=== PATIENT | female | born 1965 | race Caucasian/White ===

== ENCOUNTER → 2017-04-22 | Outpatient (CLI) | payer MEDICARE, BC ==
[~2017-04-22] MED LIST: ACCUNEB SO1.25 MG/1; ACETAMINOPHEN325 M1 PO; ADVAIR 250-501 EACH IH; ADVAIR DISKU INH; ADVAIRDISKUS; ALDACTONE50 MG PO; AMBIEN PO; AMITIZA 24 MCG24 MC1 PO; AMITIZA8 MCG PO; AMITIZA8 MCG SUBQ; AMPHETAMINE SAL20 M1 PO; ASA81BEC PO; ASPIRIN325 PO; ATIVAN; ATIVAN0.5 MG PO; ATIVAN1 MG PO; ATIVAN2 MG IV; B12INJ IM; BACTROBAN NASAL1 GM NS; BENADRYL19 MG IV; BENAFIBER; BENZONATATE100 MG PO; BISACODYL5 MG PO; Benadryl IV; CALCIUM OYSTER500 MG PO; CARAFATE 1 GM TA1 G1 PO; CARISOPRODOL 3350 MG PO; CEFPODOXIME PR200 M1 PO; CELEBREX 200 M200 M1 PO; CELEBREX PO; CELLCEPT500 MG PO; CITRATE OF MAG296 ML PO; CITRATE OF MAG300 ML PO; CLEOCIN HCL150 MG PO; CLINDAMYCIN PO; CLONAZEPAM; CLONAZEPAM 1 MG1 M1 PO; COLACE100 MG PO; CRESTOR10 MG PO; CRESTOR5 MG PO; CYMBALTA PO; CYMBALTA30 MG PO; CYMBALTA60 MG PO; DIFLUCAN150 MG PO; DILAUDID; DILAUDID 2 MG TA2 MG PO; DILAUDID 4 MG TA4 M1 PO; DILAUDID2 M1 IV; DILAUDID4 MG PO; DIPHENHIST25 M2 PO; DIPHENHIST50 MG PO; DIPHENHYDR50 MG/1 ML IV; DITROPAN XL5 MG PO; DOLOPHINE HCL10 MG PO; DOLOPHINE HCL5 MG PO; DOXYCYCLINE 10100 MG PO; DUONEB 2.5-0.5 M3 ML IH; Dilaudid IV; EXCEDRIN CAPLE1 EACH PO; EXCEDRIN MIGRA1 EAC1 PO; FOLIC ACID PO; FOLIC ACID1 MG PO; FUROSEMIDE40 MG/4 ML PO; HALDOL; HYDROCHLOROTH12.5 M1 PO; HYDROXYZINE; IBUPROFEN 200200 M1 PO; IBUPROFEN 400400 M1 GT; IBUPROFEN 800800 M1 PO; JANTOVEN10 MG PO; K-DUR 20 MEQ T20 MEQ PO; KLONOPIN1 MG PO; KLOR-CON 1010 MEQ PO; KLOR-CON20 MEQ PO; LASIX; LASIX 40 MG TAB40 MG PO; LEVAQUIN 500 M500 M2 PO; LINZESS290 MCG PO; MAALOX525 MG/15 PO; MACROBID 100 M100 M2 PO; MAG-AL PLUS XS30 ML PO; MAGNES PO; MAGOX 400400 MG PO; MEDROL; METFORMIN 500500 MG PO; METHADONE HCL 110 M1 PO; METHADONE HCL5 MG PO; METHADOSE10 M1 PO; METHADOSE10 MG PO; METHYLPREDNISOLO1 GM PO; MIRALAX255 GM PO; MOBIC15 MG PO; MOM PO; MUCINEX600 MG PO; NEURONTIN 300300 M1 PO; NEXIUM40 MG PO; OMEGA XL PO; PEPCID AC20 M1 PO; PERCOCET 5-3251 EACH PO; PHENAZOPYRIDIN200 M2 PO; PHENERGAN 25 MG25 M1 PO; PHENERGAN IV; POTASSIUM PO; PREDNISONE 10 M10 MG PO; PREDNISONE 20 M20 M1 PO; PYRIDIUM200 MG PO; ROSE HIP PO; SIMBICORT; SOLU-MEDRO40 MG/1 M1 IV; SUDAFED 12 HOU120 MG PO; SYMBICORT80 MCG/4.5 INH; SYNTHROID 0.10.1 M1 PO; SYNTHROID100 MCG PO; SYNTHROID25 MCG PO; TOPAMAX 25 MG T25 M1 PO; TOPAMAX PO; TOPAMAX100 MG PO; TOPAMAX200 MG PO; TRANSDERM-SCOP1 EACH TD; TUMS PO; VALCYTE450 MG PO; VICODIN; VITAMIN B COMP1 EAC7 PO; VITAMIN C + RO500 MG PO; VITAMIN D 5050000 I1 PO; VITAMIN D400 UNI1 PO; XARELTO10 M1 PO; ZANAFLEX4 M1 PO; ZOFRAN; ZOFRAN ODT4 MG PO; ZOFRAN8 MG SL; ZPAK PO; ZYRTEC 10 MG TA10 MG PO; [UNRECOGNIZED DRUG - OTHER]; ferrous sulfate PO
[2017-04-22 09:36] VITALS: BP 143/73
--- NOTE | 2017-04-22 14:12 | NUR ---
ARRIVED AMBULATORY WITH DAUGHTER. MADE SELF COMFORTABLE IN RECLINER. PORT A CATH ACCESSED WITH OUT DIFFICULTY. GOOD BRISK BLOOD RETURN NOTED AND FLUSHED WITH EASE. IVP MEDS COMPLETED ORDERED. MESSAGE LEFT WITH DR. MCMAHON'S OFFICE REQUESTIONG NEW STANDING ORDER.
== END ==
LOC: M.INFUS 03-11 08:30
DX: L50.9 Urticaria, unspecified (principal); G43.909 Migraine, unspecified, not intractable, without status migrainosus

== ENCOUNTER → 2017-04-22 | Outpatient (CLI) | payer MEDICARE, BC ==
--- NOTE | 2017-04-24 08:15 | PAINCON ---
[facility] [address] [place] [address] PAIN MANAGEMENT CONSULTATION Name: SAEZRAMONMike SLATER [facility] [id number] Admission: 04/22/17 Attend Phys: Charmaine Wynne Discharge: Date of : 67 Report #: [id number] THIS REPORT FOR: //name// CC: Muriel Moncada The patient is a 51-year-old female with chronic headaches, history of Arnold-Chiari malformation, status post suboccipital craniotomy. Last seen in pain clinic on 02/11/2017, continued on baseline medications including methadone 5 mg 1 to 2 at bedtime, hydromorphone 2 mg up to b.i.d. We have been struggling with concern for headaches, cognitive impairment, sedation and loss of proprioception and balance. I strongly encouraged the patient to follow up with her neurosurgeon. She had her prior surgery in [facility] [place] with Dr. Tristan Caldwell. She followed up 1 time with Neurosurgery at [facility], but was dissatisfied with physician there. I assured her that surgeon she saw was excellent neurosurgeon and has excellent reputation for intracranial surgery. Nonetheless, the patient states that she wishes to follow up with her surgeon in [place]. She does have a consultation pending with a neurologist. 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 She gets an IV infusion of Toradol, Solu-Medrol and Benadryl once a month. This does seem to help with some overall swelling and pain. She notes that she is struggling with some depression over the holidays. She is a little tearful today. She does note, however, that she has had better balance and more energy this past week. She actually appears more alert, oriented and "bright eyed." PHYSICAL EXAMINATION: Shows 5 feet 3 inches, 207 pounds female, BMI remains elevated at 36.8 kilograms per meter squared. Blood pressure 132/79, pulse 59, respirations 16. Cervical range of motion is limited, posterior neck scar compatible with surgical history. Rises from chair using armrest. Still has a modestly ataxic gait, though she does appear to be a little more stable on her feet today. Alert and oriented to person, place and time, judged to be a reasonable historian. We reviewed the fact that opiate medications are being used to provide analgesia adequate to support activities of daily living, not attempting to achieve a specific pain score on the 0-10 Visual Analog Scale. The current opiate medications are providing sufficient analgesia to allow the patient to participate in activities of daily living. The patient is not exhibiting any aberrant behavior suggestive of drug diversion. The patient is not having any adverse reactions to medications. The patient is not suffering from daytime somnolence or mental acuity changes. The [place] [address] PAIN MANAGEMENT CONSULTATION Name: RAMON SAEZ Room: [facility] YAIMA Mohr#: [id number] Admission: 04/22/17 Attend Phys: Charmaine Wynne Discharge: Date of : 67 Report #: [id number] constipation with appropriate rwin-zrs-fyuoixk agents and dietary considerations. The patient was counseled on concern for caution with operating a motor vehicle while using opiate medications. A physical exam was performed and the patient's functional status was evaluated. All patients with back pain were advised against the bed rest greater than 4 days and were advised to return to normal activities. Pain score assessment was noted and the treatment plan was reviewed with the patient. All current medications, both prescribed and OTC were reviewed and reconciled on the electronic medical record. Tobacco screening was accomplished and smoking cessation was advised when indicated. BMI was noted and diet/exercise modification was recommended for all patients following outside normal parameters. I reviewed with the patient today their responsibilities to safeguard prescription medications, reviewed their responsibility to utilize medications only as prescribed by the physician. They are to seek and receive pain medications only from 1 physician group ( [facility]). They are to use 1 pharmacy and keep the clinic informed if they change pharmacies. Their responsibilities include making followup visits in a timely fashion and to avoid abrupt discontinuation of medication usage. Their responsibilities further include bringing their medications (bottles from the pharmacy with residual pills) to the visit for possible confirmation of pill counts and the patient understands it is their responsibility to submit to random drug screens to ensure both that the medications prescribed are present, and that no other controlled substances are present. All prescriptions provided today were generated electronically. RECOMMENDATION: 1. Continue follow up with consultants, she has a neuroophthalmologist appointment scheduled. She is following up with Rheumatology, Dr. Walker, tomorrow. She is getting her monthly infusion today. I strongly recommend following up with Neurosurgery in [place] regarding subjective increase in balance issues. 2. She did get Botox injections for headaches, feels that was somewhat helpful lasting several weeks. She continues to follow up on the usual q.12 week cycle for these. I am not sure who is giving her those injections, I believe that may be her current neurologist. 3. Ultimately, I have elected to continue baseline medication including methadone 5 mg 1 to 2 at bedtime, limit 60 tablets for 30 days; hydromorphone 2 mg 1-2 b.i.d., limit 60 tablets for 30 days. Follow up in 30 days for a pill count. Discharged in good stable condition after a prolonged visit. Actually spent [facility] [address] [place] [address] PAIN MANAGEMENT CONSULTATION Name: RAMON SAEZ Room: [facility]#: [id number] Admission: 04/22/17 Attend Phys: Charmaine Wynne Discharge: Date of : 67 Report #: [id number] about 25+ minutes visiting with the patient today, greater than 50% of time was spent counseling the patient. <ELECTRONICALLY SIGNED> By: Joel Moncada DO 04/24/17 0815 0744 [id number] Moncada DO /nt
== END ==
LOC: M.PC 04-01 03:36
DX: R51 Headache (principal); Z98.890 Other specified postprocedural states

== ENCOUNTER → 2017-05-06 | Outpatient (CLI) | payer MEDICARE, BC ==
[2017-05-06 09:30] VITALS: BP 119/71
--- NOTE | 2017-05-06 11:20 | NUR ---
ARRIVED AMBULATORY WITH DAUGHTER WHO IS DRIVING. MONTHLY MIGRAINE COCKTAIL. PORT A CATH ACCESSED WITH OUT DIFFICULTY. GOOD BRISK BLOOD RETURN NOTED AND FLUSEHED WITH EASE. IVP MEDS COMPLETED AND TOLERATED WELL. PORT FLUSHED PER PROTOCOL AND DEACCESSED. MONITORED FOR 30 MIN THEN DISCHARGED TO HOME WITH DAUGHTER.
== END ==
LOC: M.INFUS 08:44
DX: G43.909 Migraine, unspecified, not intractable, without status migrainosus (principal); L50.9 Urticaria, unspecified; Z79.899 Other long term (current) drug therapy

== ENCOUNTER → 2017-05-08 | Outpatient (CLI) | payer MEDICARE, BC ==
[2017-05-08 11:14] VITALS: BP 131/78
[2017-05-08 11:56] VITALS: BP 134/86
[2017-05-08 11:58] LABS: HEMATOCRIT 30.4 % (37.0-47.0); HEMOGLOBIN 9.6 gm/dL (12.0-15.0); MCHC 31.5 g/dL (28.0-37.0); MCV 82.5 fL (80.0-100.0); MPV 8.5 fl. (7.2-11.1); NUCLEATED RBCS 0 /100WBC; PLATELET COUNT* 278 thou/uL (150-400); RBC 3.68 mil/uL (4.20-5.00); RDW-CV 14.5 % (10.5-14.5)
--- NOTE | 2017-05-08 12:03 | NUR ---
ARRIVED AMBULATORY WITH DAUGHTER. NEW ORDER FOR LAB DRAW NOTED. PT REQUESTING PRN MIGRAINE COCKTAIL. DAUGHTER STATES WILL DRIVE PT HOME AND STAY AFTERNOON WITH HER. PORT A CATH ACCESSED WITHOUT DIFFICULTY. GOOD BRISK BLOOD RETURN NOTED AND FLUSHED WITH EASE. LABS DRAWN PER ORDER. PRN MIGRAINE COCKTAIL DONE PER STANDING ORDER AND HOSPITAL POLICY. PORT FLUSHED AND DEACCESSED. MONITORED FOR 20 MIN AND DISCHARGED HOME WITH DAUGHTER.
[2017-05-08 12:13] LABS: ALKALINE PHOSPHATASE 89 U/L (46-116); ANION GAP 7 mmol/L (7-16); BUN 23 mg/dL (7-18); CALCIUM 8.2 mg/dL (8.5-10.1); CHLORIDE 108 mmol/L (98-107); CHOLESTEROL 112 mg/dL (<200); CO2 28 mmol/L (21-32); CREATININE 0.8 mg/dL (0.6-1.3); GLUCOSE 134 mg/dL (70-99); HDL CHOLESTEROL 63 mg/dL (>40); LDL CHOLESTEROL 38 mg/dL (<100); POTASSIUM 3.6 mmol/L (3.5-5.1); SERUM ASSESSMENT Clear; SGOT 38 U/L (15-37); SGPT 16 U/L (30-65); SODIUM 143 mmol/L (136-145); TC:HDL 1.8 Ratio (Not establshd); TOTAL BILIRUBIN 0.5 mg/dL (<0.1-1.0); TOTAL PROTEIN 6.3 g/dL (6.4-8.2); TRIGLYCERIDE 55 mg/dL (<150); VLDL 11 mg/dL (<40)
[2017-05-08 12:38] LABS: ABSOLUTE BASOPHILS 0.1 thou/uL (0.0-0.2); ABSOLUTE EOSINOPHILS 0.2 thou/uL (0.0-0.7); ABSOLUTE LYMPHOCYTES 4.6 thou/uL (0.8-5.3); ABSOLUTE MONOCYTES 0.3 thou/uL (0.0-1.2); ABSOLUTE NEUTROPHILS 2.7 thou/uL (1.6-8.1); ANISOCYTOSIS 1+; ATYPICAL LYMPHS 2 %; PLATELET ESTIMATE ADEQUATE; POIKILOCYTOSIS 1+
[2017-05-08 13:10] LABS: ESR (SEDRATE) 85 mm/hr (0-30)
[2017-05-08 21:07] LABS: GLYCOHEMOGLOBIN (HGB A1C) 5.4 % (4.8-5.6)
== END ==
LOC: M.INFUS 04:46
PROVIDERS: Internal Medicine Rheumatology
DX: G43.909 Migraine, unspecified, not intractable, without status migrainosus (principal); L50.9 Urticaria, unspecified; Z79.899 Other long term (current) drug therapy

== ENCOUNTER → 2017-05-19 | Outpatient (CLI) | payer MEDICARE, BC ==
[2017-05-19 10:49] VITALS: BP 142/69
--- NOTE | 2017-05-19 11:10 | NUR ---
CALL RECIEVED FROM PT THIS AM REQUESTION TO COME IN FOR PRN MIGRAINE COCKTAIL. PT ARRIVED AMBULATORY WITH DAUGHTER AND GRANDSON. MADE SELF CMOFORTABLE. PT REPORT MIGRAINE SYMPTOMS STARTING. PORT A CATH LEFT CHEST ACCESSED WITH OUT DIFFICULTY. GOOD BLOOD RETURN NOTED AND FLUSHED WITH EASE. IV PUSH MEDS PER STANDING ORDER COMPLETED AND TOLERATED WELL. DENEIS QUESTIONS AT DISCHARGE. DISCHARGED WTIH DAUGHTER.
== END ==
LOC: M.INFUS 10:07
DX: G43.909 Migraine, unspecified, not intractable, without status migrainosus (principal); L50.9 Urticaria, unspecified; Z79.899 Other long term (current) drug therapy

== ENCOUNTER → 2017-05-20 | Outpatient (CLI) | payer MEDICARE, BC ==
--- NOTE | 2017-05-25 07:21 | PAINCON ---
[address] [address] PAIN MANAGEMENT CONSULTATION Name: RAMON SAEZ [facility] [id number] Admission: 05/20/17 Attend Phys: Charmaine Wynne Discharge: Date of : 67 Report #: [id number] THIS REPORT FOR: //name// CC: Muriel Moncada DATE OF SERVICE: 05/20/2017 The patient is a 51-year-old female whose care I took over in March 2016. The patient had Arnold-Chiari malformation, apparently was asymptomatic until around 1992 when she started having headaches and some myelopathic type symptoms after partuition. Her history is a little sketchy as the patient is somewhat poor historian. She has trouble with dates and has had some cognitive impairment issues. We pieced together her history. Apparently, she had an initial suboccipital decompression in 2002 with a revision a few weeks later. Had an anterior cervical disk fusion in 2003 and a posterior decompression in 2005 (?). Nonetheless, she came to me taking a little higher dose opiate and suffering from memory defects, word searching and some confusion. She is taking methadone 10 mg t.i.d. with hydromorphone 4 mg 3 times a day. Over the intervening 13 months, we have weaned down to methadone 5 mg 1 tablet b.i.d. with hydromorphone 4 mg b.i.d. p.r.n. and lorazepam 0.5 p.r.n. at bedtime insomnia, limit #30 tablets for 60 days to be used on a nondaily basis. She is getting Botox injections for headaches. Her neurologist, Dr. Temple in [facility] has been providing this therapy. She actually has her fourth series of Botox injections next week. It has been about 47 weeks now since she initiated this therapy and does note some efficacy. The patient's neurosurgeon, Dr. Caldwell in [place] is slated to see the patient in followup sometime later this spring or early summer. Currently, the patient states her pain is "in my entire head and throat." The patient tells me that she was swollen yesterday, stating she had swelling in her chest. When I queried the patient about this, she stated she had a "tight sensation" in her chest. She states that chest discomfort is not present today. She states pain is in the left lower extremity. She tells me she has significant swelling yesterday with a large bruise on the left lower leg yesterday, though there is no evidence of this today (?). Currently, the patient rates her pain at a 5 on a VAS. Again, describing more generalized type pain and ongoing headaches. Pain impact score is 25/70. We reviewed the fact that opiate medications are being used to provide analgesia adequate to support activities of daily living, [place] [address] PAIN MANAGEMENT CONSULTATION Name: RAMON SAEZ [facility] [id number] Admission: 05/20/17 Attend Phys: Charmaine Wynne Discharge: Date of : 67 Report #: [id number] specific pain score on the 0-10 Visual Analog Scale. The current opiate medications are providing sufficient analgesia to allow the patient to participate in activities of daily living. The patient is not exhibiting any aberrant behavior suggestive of drug diversion. The patient is not having any adverse reactions to medications. The patient is not suffering from daytime somnolence or mental acuity changes. The patient is managing opiate-induced constipation with appropriate lvmr-svm-oqchgqc agents and dietary considerations. The patient was counseled on concern for caution with operating a motor vehicle while using opiate medications. A physical exam was performed and the patient's functional status was evaluated. All patients with back pain were advised against the bed rest greater than 4 days and were advised to return to normal activities. Pain score assessment was noted and the treatment plan was reviewed with the patient. All current medications, both prescribed and OTC were reviewed and reconciled on the electronic medical record. Tobacco screening was accomplished and smoking cessation was advised when indicated. BMI was noted and diet/exercise modification was recommended for all patients following outside normal parameters. I reviewed with the patient today their responsibilities to safeguard prescription medications, reviewed their responsibility to utilize medications only as prescribed by the physician. They are to seek and receive pain medications only from 1 physician group ( [facility]). They are to use 1 pharmacy and keep the clinic informed if they change pharmacies. Their responsibilities include making followup visits in a timely fashion and to avoid abrupt discontinuation of medication usage. Their responsibilities further include bringing their medications (bottles from the pharmacy with residual pills) to the visit for possible confirmation of pill counts and the patient understands it is their responsibility to submit to random drug screens to ensure both that the medications prescribed are present, and that no other controlled substances are present. All prescriptions provided today were generated electronically. Today, we did review the opiate consent to treat contract. Buccal random drug swab was accomplished today. The patient was seen for moderately prolonged visit, greater than 25 minutes was spent reviewing medical history, therapeutic options, discussing current therapies and reviewing opiate consent to treat contract. I have taken the liberty of renewing 2 months of current medication, methadone 5 mg b.i.d., #60 tablets and hydromorphone 4 mg b.i.d. breakthrough pain, [place] [address] PAIN MANAGEMENT CONSULTATION Name: RAMON SAEZ [facility] [id number] Admission: 05/20/17 Attend Phys: Charmaine Wynne Discharge: Date of : 67 Report #: [id number] #60 tablets for 30 days. Prescriptions to release today and 4 weeks were generated. Follow up in 2 months for reevaluation, earlier if needed. <ELECTRONICALLY SIGNED> By: Joel Moncada DO 05/25/17 0721 1458 [id number] Moncada DO /nt
== END ==
LOC: M.PC 01:37
DX: Q07.8 Other specified congenital malformations of nervous system (principal); G31.84 Mild cognitive impairment of uncertain or unknown etiology; Z98.890 Other specified postprocedural states

== ENCOUNTER → 2017-06-08 | Outpatient (CLI) | payer MEDICARE, BC ==
[2017-06-08 14:00] VITALS: BP 131/80
--- NOTE | 2017-06-08 14:03 | NUR ---
CALLED THIS AM REQUESTIONG PRN MIGRAINE COCKTAIL. APPOINTMENT MADE. ARRIVED AMBULATORY WITH . PORT A CATH ACCESSED WITHOUT DIFFICULTY. GOOD BRISK BLOOD RETURN NOTED AND FLUSHED WITH EASE. PRN MEDS GIVEN IVP PER ORDER. TOLERATED WELL. TO ASSIST TO CAR AND STAY WITH PT. DENIES NEEDS AT DISCHARGE.
== END ==
LOC: M.INFUS 12:22
DX: G43.909 Migraine, unspecified, not intractable, without status migrainosus (principal); K59.00 Constipation, unspecified

== ENCOUNTER → 2017-06-11 | Outpatient (CLI) | payer MEDICARE, BC ==
--- NOTE | 2017-06-11 10:30 | NUR ---
port a cath accessed with out difficulty. good brisk blood return noted and flused with ease. scheduled for EGD in surgery center today. here for port access prior to procedure.
--- NOTE | 2017-06-11 12:23 | NUR ---
EGD COMPLETED IN SURGERY CENTER. RETURNED TO INFUSION FOR PORT FLUSH AND DEACCESS AT 1205. PORT FLUSHED AND DEACCESSED. TOLERATED WELL. WAITING RIDE HOME BACK OVER AT SURGERY CENTER.
== END ==
LOC: M.INFUS 00:41
DX: G43.909 Migraine, unspecified, not intractable, without status migrainosus (principal); L50.9 Urticaria, unspecified

== ENCOUNTER → 2017-06-12 | Outpatient (CLI) | payer MEDICARE, BC ==
[2017-06-12 11:44] VITALS: BP 157/94
--- NOTE | 2017-06-12 13:35 | NUR ---
ARRIVED AMBULATOEY. MADE SELF COMFORTABLE IN RELCINER. PORT A CATH ACCESSED WITH OUT DIFFICULTY. GOOD BRISK BLOOD RETURN NOTED AND FLUSHED WITH EASE. IV PUSH MEDS FOR MIGRAINE COCTAIL COMPLETED AND TOLERATED WELL. CARRIE NEEDS AT DISCHARGE. SISTER IN LAW TO DRIVE HOME AND STAY WITH PT.
== END ==
LOC: M.INFUS 11:45
DX: G43.909 Migraine, unspecified, not intractable, without status migrainosus (principal); L50.9 Urticaria, unspecified

== ENCOUNTER → 2017-07-08 | Outpatient (CLI) | payer MEDICARE, BC ==
[2017-07-08 09:18] VITALS: BP 105/57
--- NOTE | 2017-07-08 10:30 | NUR ---
Pt arrived at 0830 for injection of medications for Migraine RANGEL. Pt seated self in recliner after ambulating to infusion area for treatment. Access attempted by 1st RN without sucesss. Port then accessed on 2nd attempt with 20g 1 1/2in bent needle @ 0910. Pt tolerated well. Brisk blood return noted and flushed easily. Pt stated she was able to taste & smell the saline flush solution. Medications given slow IV push starting at 0910 and completed by 0916. Was then flushed with 20ml NS and packed with Heprin flush before removing port-a-cath access. Sabrina then became sleepy and rested in recliner. At 0950 pt's sister in law who is her ride home called and stated that she would be back around 1100 to pick her up from infusion.
--- NOTE | 2017-07-08 10:38 | NUR ---
Pt is up ambulating to rr, uses cane to walk but appears stable & with good balance at this time.
--- NOTE | 2017-07-08 11:36 | NUR ---
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 Sister in law picked pt up for discharge home.
== END ==
LOC: M.INFUS 06:05
DX: G43.909 Migraine, unspecified, not intractable, without status migrainosus (principal)

== ENCOUNTER → 2017-07-15 | Outpatient (CLI) | payer MEDICARE, BC ==
--- NOTE | 2017-07-17 09:51 | PAINCON ---
[address] [address] PAIN MANAGEMENT CONSULTATION Name: SAEZRAMON EDGAR [facility] [id number] Admission: 07/15/17 Attend Phys: Charmaine Wynne Discharge: Date of : 67 Report #: [id number] THIS REPORT FOR: //name// CC: Muriel Moncada DATE OF SERVICE: 07/15/2017 The patient is a 51-year-old female being treated for chronic neuropathic pain. She is status post suboccipital craniotomy for Arnold-Chiari malformation, has chronic headaches. Last seen in the Pain Clinic on 05/20/2017. We have been weaning her opiate load as she is having significant somnolence when I took over her care, now a little greater than a year ago (04/02/2016). At that time, the patient was using methadone 10 mg 3 times a day with hydromorphone 4 mg 3-4 a day for breakthrough pain. We have gradually weaned that opiate load over time, currently taking methadone 5 mg b.i.d., hydromorphone 1 tablet up to b.i.d. She tells me today that actually she takes methadone b.i.d., but uses the breakthrough pain tablet perhaps every other day in the morning and then at night. She still has some ongoing drowsiness and feeling "tired all the time." She does, however, have a little anemia, which may be somewhat attributing. She has been started on iron supplementation and Carafate q.i.d. She has a followup appointment with her GI doctor. From a neurologic standpoint, she is having increasing symptoms. Ongoing ataxia. She has fallen backwards a couple of times. She has been admonished to continue to use her walker. She has decrease in visual acuity in the left eye. She does ostensibly have an appointment to see her prior neurosurgeon (who does reside in [place], [place]). PHYSICAL EXAMINATION: Otherwise shows a 51-year-old female, BMI is elevated at 36.1 kg/m2. Vital signs are stable, afebrile. Blood pressure 103/72, pulse 67, respirations 16. Room air oxygen saturation is modestly diminished at 94%. Subjective pain score is 7 on a VAS. Cranial nerves 2-12 are grossly intact. Again, her affect is little flat and she appears a little sedate. She has an ataxic gait, diffuse tenderness in the upper back splenius capitis, trapezius, though no discrete trigger points noted. ASSESSMENT: Chronic headaches, status post suboccipital craniotomy for Arnold-Chiari malformation, neuropathic pain requiring complex medication management. RECOMMENDATIONS: We will continue to wean methadone, decrease to 1/2 to 1 tablet in the morning, continue 1 at night. We will decrease hydromorphone 2 mg per tablet, 1 tablet in the morning and 1-2 in the [place] [address] PAIN MANAGEMENT CONSULTATION Name: SERAMON SLATER Room: [facility] Mohr#: [id number] Admission: 07/15/17 Attend Phys: Charmaine Wynne Discharge: Date of : 67 Report #: [id number] pain. I have taken the liberty of writing for 1 month of medication. Follow up at that time for reevaluation. Encouraged the patient to follow up with her prior surgeon regarding changing neurologic issues. <ELECTRONICALLY SIGNED> By: Joel Moncada DO 07/17/17 0951 [id number] 1933Joel Moncada DO /nt
== END ==
LOC: M.PC 02:28
DX: G89.29 Other chronic pain (principal); M79.2 Neuralgia and neuritis, unspecified; R51 Headache; Z79.899 Other long term (current) drug therapy

== ENCOUNTER → 2017-07-20 | Outpatient (CLI) | payer MEDICARE, BC ==
[2017-07-20 14:14] VITALS: BP 128/80
[2017-07-20 14:50] VITALS: BP 112/75
--- NOTE | 2017-07-20 16:03 | NUR ---
CALL RECIEVED FROM PT. STATED SHE WAS HAVING HEADACHE AND GENERALIZED SWELLING. PRN MEDICATION GIVEN PER STANDING ORDER. PORT A CATH WAS ACCESSED WITH EASE. DENEIS QUESTIONS OR NEEDS AT DISCHARGE.
== END ==
LOC: M.INFUS 13:27
DX: G43.909 Migraine, unspecified, not intractable, without status migrainosus (principal); L50.9 Urticaria, unspecified

== ENCOUNTER → 2017-08-05 | Outpatient (CLI) | payer MEDICARE, BC ==
[2017-08-05 09:36] VITALS: BP 126/66
--- NOTE | 2017-08-05 11:00 | NUR ---
ARRIVED AMBULATORY. MADE SLEF COMFORTABLE PORT A CATH ACCESSED WITH OUT DIFFICULTY. GOOD BRISK BLOOD RETURN NOTED AND FLUSHED WITH EASE. IV PUSH MEDS GIVEN PER STANDING ORDER. TOLERATED WELL. PORT FLUSHED AND THEN DEACCESSED. DENIES NEEDS OR QUESTIONS AT DISCHARGE.
== END ==
LOC: M.INFUS 02:40
DX: G43.909 Migraine, unspecified, not intractable, without status migrainosus (principal)

== ENCOUNTER → 2017-08-11 | Outpatient (CLI) | payer MEDICARE, BC ==
[2017-08-11 13:22] VITALS: BP 110/65
== END ==
LOC: M.INFUS 11:16
DX: G43.809 Other migraine, not intractable, without status migrainosus (principal)

== ENCOUNTER → 2017-09-01 | Outpatient (CLI) | payer MEDICARE, BC ==
[2017-09-01 08:40] VITALS: BP 97/54
[2017-09-01 09:57] LABS: ABSOLUTE BASOPHILS 0.1 thou/uL (0.0-0.2); ABSOLUTE EOSINOPHILS 0.1 thou/uL (0.0-0.7); ABSOLUTE MONOCYTES 0.7 thou/uL (0.0-1.2); ABSOLUTE NEUTROPHILS 2.4 thou/uL (1.6-8.1); EOSINOPHILS 1.5 %; HEMOGLOBIN 11.1 gm/dL (12.0-15.0); LYMPHOCYTES 48.2 %; MCHC 33.7 g/dL (28.0-37.0); MCV 89.1 fL (80.0-100.0); MONOCYTES 10.9 %; MPV 8.6 fl. (7.2-11.1); NUCLEATED RBCS 0 /100WBC; PLATELET COUNT* 245 thou/uL (150-400); POLYS 38.4 %; RDW-CV 18.1 % (10.5-14.5); WBC 6.3 thou/uL (4.0-11.0)
[2017-09-01 10:01] LABS: CALCIUM 8.2 mg/dL (8.5-10.1); CREATININE 0.7 mg/dL (0.6-1.3)
[2017-09-01 10:04] LABS: POTASSIUM 2.7 mmol/L (3.5-5.1)
== END ==
LOC: M.INFUS 01:38
PROVIDERS: Family Medicine
DX: G43.909 Migraine, unspecified, not intractable, without status migrainosus (principal); L50.9 Urticaria, unspecified; K59.00 Constipation, unspecified; Z79.899 Other long term (current) drug therapy

== ENCOUNTER → 2017-09-02 | Outpatient (CLI) | payer MEDICARE, BC ==
[2017-09-02 13:52] LABS: CALCIUM 8.6 mg/dL (8.5-10.1); POTASSIUM 3.3 mmol/L (3.5-5.1)
== END ==
LOC: M.LAB 13:23
PROVIDERS: Family Medicine
DX: E87.6 Hypokalemia (principal)

== ENCOUNTER 2017-09-07 11:50 | Emergency (ER) | payer MEDICARE, BC ==
[~2017-09-07] VITALS: Ht 157.5 cm; Wt 92.1 kg
[~2017-09-07 11:50] MED LIST changes: -AMITIZA 24 MCG24 MC1 PO; -AMITIZA8 MCG PO; -DOXYCYCLINE 10100 MG PO; -LEVAQUIN 500 M500 M2 PO
[2017-09-07 13:53] VITALS: BP 124/83
[2017-09-09] MEDS ORDERED: METHADONE HCL5 MG PO (10:05)
[2017-09-09] MEDS ORDERED: CELEBREX 200 M200 M1 PO (10:05)
[2017-09-09] MEDS ORDERED: CYMBALTA60 MG PO (10:05)
[2017-09-09] MEDS ORDERED: DILAUDID 2 MG TA2 MG PO (10:05)
[2017-09-09] MEDS ORDERED: ZANAFLEX4 M1 PO (10:05)
[2017-09-09] MEDS ORDERED: DOLOPHINE HCL5 MG PO (10:05)
[2017-09-10] MEDS ORDERED: LEVAQUIN 500 M500 M2 PO (10:31)
[2017-09-10] MEDS ORDERED: AMITIZA8 MCG PO (10:31)
[2017-11-12] MEDS ORDERED: METHADONE HCL5 MG PO (08:18)
[2017-11-12] MEDS ORDERED: ATIVAN0.5 MG PO (08:18)
[2017-11-12] MEDS ORDERED: DOLOPHINE HCL5 MG PO (08:18)
[2017-11-12] MEDS ORDERED: CYMBALTA60 MG PO (08:18)
[2017-11-12] MEDS ORDERED: ZANAFLEX4 M1 PO (08:18)
[2017-11-12] MEDS ORDERED: CELEBREX 200 M200 M1 PO (08:18)
[2017-11-12] MEDS ORDERED: DILAUDID 2 MG TA2 MG PO ×4 (10:32→10:34)
[2017-11-17] MEDS ORDERED: DOXYCYCLINE 10100 MG PO (09:23)
[2017-11-17] MEDS ORDERED: AMITIZA 24 MCG24 MC1 PO (09:23)
[2017-11-17] MEDS ORDERED: K-DUR 20 MEQ T20 MEQ PO (09:23)
[2018-01-07] MEDS ORDERED: METHADONE HCL5 MG PO (08:20)
[2018-01-07] MEDS ORDERED: DILAUDID 2 MG TA2 MG PO ×2 (08:20)
[2018-01-07] MEDS ORDERED: ZANAFLEX4 M1 PO (08:20)
[2018-01-07] MEDS ORDERED: CYMBALTA60 MG PO (08:20)
[2018-01-07] MEDS ORDERED: CELEBREX 200 M200 M1 PO (08:20)
[2018-01-07] MEDS ORDERED: ATIVAN0.5 MG PO (08:20)
[2018-01-07] MEDS ORDERED: DOLOPHINE HCL5 MG PO (10:13)
[2018-03-02] MEDS ORDERED: DILAUDID 2 MG TA2 MG PO ×2 (10:28)
[2018-03-02] MEDS ORDERED: METHADONE HCL5 MG PO (10:28)
[2018-03-02] MEDS ORDERED: ZANAFLEX4 M1 PO (10:28)
[2018-03-02] MEDS ORDERED: CELEBREX 200 M200 M1 PO (10:28)
[2018-03-02] MEDS ORDERED: ATIVAN0.5 MG PO (10:28)
[2018-03-02] MEDS ORDERED: DOLOPHINE HCL5 MG PO (10:28)
[2018-03-02] MEDS ORDERED: CYMBALTA60 MG PO (10:28)
== END 2017-09-07 13:55 | disposition home or self-care (01) ==
LOC: M.ERS 11:50
DX: S52.592A Other fractures of lower end of left radius, initial encounter for closed fracture (principal); S52.612A Displaced fracture of left ulna styloid process, initial encounter for closed fracture; I48.91 Unspecified atrial fibrillation; J45.909 Unspecified asthma, uncomplicated; Z91.041 Radiographic dye allergy status; Z91.018 Allergy to other foods; Z88.0 Allergy status to penicillin; Z88.2 Allergy status to sulfonamides; Z88.8 Allergy status to other drugs, medicaments and biological substances; W18.39XA Other fall on same level, initial encounter; Y93.89 Activity, other specified; Y92.89 Other specified places as the place of occurrence of the external cause; Y99.8 Other external cause status

== ENCOUNTER → 2017-09-07 | Outpatient (CLI) | payer MEDICARE, BC ==
[2017-09-07 15:19] LABS: CALCIUM 8.5 mg/dL (8.5-10.1); CREATININE 0.7 mg/dL (0.6-1.3); POTASSIUM 3.5 mmol/L (3.5-5.1)
--- NOTE | 2017-09-07 15:20 | NUR ---
PATIENT ARRIVAL FROM ER TO OP INFUSION. ASKING TO BE ADDED ON FOR PORTACATH ACCESS AND MEDICATION ADMINISTRATION. CONTACTED ADMITTING FOR PAPERWORK AND REGISTRATION. PATIENT MADE SELF COMFORTABLE IN RECLINER. PATIENT ASKING FOR GLORIA TO ACCESS HER PORT. LEFT CHEST PORT ACCESSED BY GLORIA NIELSEN RN. HISTORY AND ORDERS REVIEWED. VS FROM ER REVIEWED. MEDICATIONS ADMINISTERED PER DR. LIZARRAGA ORDERS. PORT FLUSHED WITH NS 20MLS AND HEPARIN 5MLS OF 100UNIT/ML SOLUTION. PORT THEN DEACCESSED AND BANDAID APPLIED. PATIENT CONVERSING AND DENIES CONCERNS. PATIENT DEPARTS FOR HOME WITH [employer]EM[employer]ER HELPER PRESENT TO PICK HER UP.
== END ==
LOC: M.INFUS 14:14 → M.RAD 14:14
PROVIDERS: Family Medicine
DX: G43.909 Migraine, unspecified, not intractable, without status migrainosus (principal); R07.9 Chest pain, unspecified; R06.02 Shortness of breath; E87.6 Hypokalemia

== ENCOUNTER → 2017-09-09 | Outpatient (CLI) | payer MEDICARE, BC ==
[~2017-09-09] MED LIST changes: +AMITIZA 24 MCG24 MC1 PO; +AMITIZA8 MCG PO; +DOXYCYCLINE 10100 MG PO; +LEVAQUIN 500 M500 M2 PO
--- NOTE | 2017-09-10 07:50 | PAINCON ---
[facility] [address] [place] [address] PAIN MANAGEMENT CONSULTATION Name: RAMON SAEZ Room: [facility]#: [id number] Admission: 09/09/17 Attend Phys: Charmaine Wynne Discharge: Date of : 67 Report #: [id number] THIS REPORT FOR: //name// CC: Mauro Moncada DATE OF SERVICE: 09/09/2017 The patient is a 52-year-old female being treated for chronic headaches, status post suboccipital craniotomy secondary to Arnold-Chiari malformation. Neuropathic pain requiring complex medication management. Last seen in the Pain Clinic 07/15/2017. Continued on methadone 5 mg typically one tablet b.i.d. with hydromorphone 2 mg 1 tablet 2-3 times a day, limit 75 tablets for 30 days. The patient returns to the Pain Clinic today. She has finally sent her medical records to her treating neurosurgeon who has relocated to [place], [place]. She plans on following up with him hopefully within the next 4-6 weeks. In the interval since we last saw her, the patient had another syncopal event. Unfortunately, this time she did fall suffering what sounds like a Colles fracture in the left forearm. Some increasing pain here. Physical exam shows a 52-year-old female. Cranial nerves 2-12 appear grossly intact. We have been treating her since 03/2016. We weaned her opiate load a little bit and she is a little more alert and oriented, little less cognitive impairment, though she still has some memory issues. She rises from chair using armrests, has a bit of an ataxic gait, though she has symmetric strength in the upper and lower extremities. Cervical range of motion is modestly limited. BMI is 38.2 kilograms per meter squared, blood pressure 95/59, pulse 83, respirations are 18. Subjective pain score is 9 on a VAS. She does have an immobilizer in her right wrist. She is following up with the orthopedic surgeon within the week. We reviewed the fact that opiate medications are being used to provide analgesia adequate to support activities of daily living, not attempting to achieve a specific pain score on the 0-10 Visual Analog Scale. The current opiate medications are providing sufficient analgesia to allow the patient to participate in activities of daily living. The patient is not exhibiting any aberrant behavior suggestive of drug diversion. The patient is not having any adverse reactions to medications. The patient is not suffering from daytime somnolence or mental acuity changes. The patient is managing opiate-induced constipation with appropriate vwwa-lpw-qqcwytz agents and dietary considerations. The patient was counseled on concern for caution with operating a motor vehicle [place] [address] PAIN MANAGEMENT CONSULTATION Name: RAMON SAEZ [facility] [id number] Admission: 09/09/17 Attend Phys: Charmaine Wynne Discharge: Date of : 67 Report #: [id number] A physical exam was performed and the patient's functional status was evaluated. All patients with back pain were advised against the bed rest greater than 4 days and were advised to return to normal activities. Pain score assessment was noted and the treatment plan was reviewed with the patient. All current medications, both prescribed and OTC were reviewed and reconciled on the electronic medical record. Tobacco screening was accomplished and smoking cessation was advised when indicated. BMI was noted and diet/exercise modification was recommended for all patients following outside normal parameters. I reviewed with the patient today their responsibilities to safeguard prescription medications, reviewed their responsibility to utilize medications only as prescribed by the physician. They are to seek and receive pain medications only from 1 physician group ( [facility]). They are to use 1 pharmacy and keep the clinic informed if they change pharmacies. Their responsibilities include making followup visits in a timely fashion and to avoid abrupt discontinuation of medication usage. Their responsibilities further include bringing their medications (bottles from the pharmacy with residual pills) to the visit for possible confirmation of pill counts and the patient understands it is their responsibility to submit to random drug screens to ensure both that the medications prescribed are present, and that no other controlled substances are present. All prescriptions provided today were generated electronically. RECOMMENDATIONS: Continue methadone 5 mg b.i.d. We will increase hydromorphone to 1 tablet 3 times a day, limit 90 tablets for the first 4 weeks, second prescription released in 4 weeks. We will drop back to 75 tablets, 1 tablet 2-3 times a day. Continue methadone as noted unchanged, Celebrex 200 mg 1 a day. She has been intolerant of other NSAID agents due to gastroesophageal reflux and history of a bleeding ulcer. Continue Cymbalta 60 mg b.i.d. I did inform the patient that I will be leaving the practice, leaving the practice area at the end of next month. Recommend that she follow up with Dr. Mauro Henrandez. He had been her prior treating pain physician. He left [facility], at that time patient's insurance covered at [place]. She believes she will be able to go to see him at [place]. Given that she has complicated medical history, I think her better medical care would be to follow up with Dr. Hernandez. <ELECTRONICALLY SIGNED> By: Joel Moncada DO 09/10/17 0750 [id number] Moncada DO /nt
== END ==
LOC: M.PC 03:57
DX: M79.2 Neuralgia and neuritis, unspecified (principal); G89.29 Other chronic pain; R51 Headache; Z79.899 Other long term (current) drug therapy

== ENCOUNTER → 2017-09-16 | Outpatient (CLI) | payer MEDICARE, BC | LOC: M.LAB 09:38 | DX: Z01.812 Encounter for preprocedural laboratory examination (principal) ==

== ENCOUNTER → 2017-09-18 | Outpatient (CLI) | payer MEDICARE, BC ==
[2017-09-18 10:16] VITALS: BP 94/57
--- NOTE | 2017-09-18 10:16 | NUR ---
PT ARRIVED TO INFUSION FOR ACCESSING HER PORT-A-CATH FOR HER PRN MEDICATIONS FOR DX: MIGRAINE HEADACHES. PT HAD ASSIST OF CANE AND MADE SELF COMFORTABLE IN RECLINER. ASSISTED IN LYING BACK IN RECLINER FOR PORT-A-CATH ACCESS. ATTEMPTED ACCESS OF PT'S LEFT CHEST PORT-A-CATH X 2 W/3/4 IN 20 G BENT NEEDLE WITH STERILE TECHNIQUE. UNABLE TO ACCESS W/3/4 IN 20 G BENT NEEDLE. ACCESSED ON THIRD ATTEMPT W/04 20/2 IN 20 G BENT NEEDLE W/STERILE TECHNIQUE. BLOOD RETURNED BRISKLY. PT GIVEN HER MEDICATION FOR DX: MIGRAINES, 100 MG DIPHENHYDRAMINE IVP, 30 MG TORADOL IVP, 4 MG ZOFRAN IVP, AND 125 MG SOLUMEDROL IVP. PT THEN GIVEN 20 ML NORMAL SALINE FLUSH FOLLOWED BY HEPARIN FLUSH 5 ML. PT DENIED NEEDS AT DISCHARGE. PT TAKEN OUT VIA W/CHAIR FOR DISCHARGE HOME-PT BEING DRIVEN HOME BY HER DAUGHTER.
== END ==
LOC: M.INFUS 10:04
DX: G43.909 Migraine, unspecified, not intractable, without status migrainosus (principal)

== ENCOUNTER → 2017-10-01 | Outpatient (CLI) | payer MEDICARE, BC ==
[2017-10-01 08:43] VITALS: BP 100/89
--- NOTE | 2017-10-01 09:10 | NUR ---
PT ARRIVED TO THE UNIT AT 0830, SETTLED INTO RECLINER AND V.S. OBTAINED. PT ALREADY ACCESSED PORT A CATH, WHICH FLUSHES EASILY, BUT DOES NOT RETURN BLOOD. HUGO RN EVALUATED IT. MEDS WERE GIVEN, PORT WAS HEPARIN FLUSHED, THEN DEACCESSED. DR. MCMAHON OFFICE WAS CALLED TO OBTAIN CATH AZIZA ORDER FOR NEXT TIME PT RETURNS NEXT WEEK, IN CASE NEEDED WHEN REACCESSED. PT.ESCORTED TO CAR PER W.C.
== END ==
LOC: M.INFUS 01:34
DX: G43.909 Migraine, unspecified, not intractable, without status migrainosus (principal)

== ENCOUNTER → 2017-10-07 | Outpatient (CLI) | payer MEDICARE, BC ==
[2017-10-07 08:55] VITALS: BP 122/74
[2017-10-07 10:15] VITALS: BP 118/72
--- NOTE | 2017-10-07 10:31 | NUR ---
ARRIVED AMBULATORY. MADE SELF COMFORTABLE IN RECLINER. PORT A CATH ACCESSED WITH OUT DIFFICULTY. SLUGGISH SCANT BLOOD RETURN NOTED. MIGRAINE COCKTAIL GIVEN PER STANDING ORDER. PER ORDER AND HOSPITAL PROTOCOL, CATH FLOW DONE TO RSTORE BLOOD RETURN TO PORT A CATH. LINE CHECKED AT 45MIN AND GOOD BRISK BLOOD RETURN WITH ASPERATION NOTED 5ML WASTED. LINE THEN FLUSHED PER PROTOCOL. DENIES NEEDS AT DISCHARGE.
== END ==
LOC: M.INFUS 09-30 08:00
DX: G43.909 Migraine, unspecified, not intractable, without status migrainosus (principal)

== ENCOUNTER → 2017-11-12 | Outpatient (CLI) | payer MEDICARE, BC ==
--- NOTE | 2017-11-18 14:16 | PAINCON ---
[address] [address] PAIN MANAGEMENT CONSULTATION Name: RAMON SAEZ Room: [facility] YAIMA Mohr#: [id number] Admission: 11/12/17 Attend Phys: Lupis Collins MD Discharge: Date of : 67 Report #: [id number] THIS REPORT FOR: //name// CC: Muriel Collins DATE OF SERVICE: 11/12/2017 FOLLOWUP COMPLAINT: Headache and pain behind the eyes. FOLLOWUP HISTORY: The patient is a 52-year-old female, who has been seen and followed in the pain clinic by Dr. Joel Moncada. The patient has a very complex medical history. She has been treated for chronic headaches. She is status post occipital craniotomy secondary to Arnold Chiari malformation. The patient continues to have neuropathic pain, which requires complex medicine regimen and management. She continues to find methadone and hydromorphone helpful. The patient has been treated by a neurosurgeon, he has relocated to [place], [place]. She recently had a syncopal episode. She suffered a Colles fracture of her left forearm, which is healing. She continues to have pain, which radiates down into her arms bilaterally and involves her fingers with some numbness and tingling. She rates her pain as a 7/10 at this juncture. She is unable to drive. PAST MEDICAL HISTORY: 1. Chronic headaches. 2. Anterior cervical fusion at C5-C6. 3. History of aortic insufficiency. 4. Hypertension. 5. Asthma. 6. Chronic anemia. 7. Morbid obesity. 8. Degenerative osteoarthritis. 9. Chronic fatigue syndrome with positive Eve-Pathak titer. 10. Hypothyroidism. 11. Unidentified autoimmune disorder. 12. Status post right T3/T4/T5 central disk protrusion. PAST SURGICAL HISTORY: 1. Suboccipital craniotomy for Arnold Chiari malformation. 2. Anterior cervical fusion at C5/C6. 3. Laparoscopic cholecystectomy. 4. Laparoscopic band surgery. 5. Right parietal meningioma. 6. Appendectomy. 7. Colles fracture, left arm. 8. [place] [address] PAIN MANAGEMENT CONSULTATION Name: RAMON SAEZ Room: [facility]#: [id number] Admission: 11/12/17 Attend Phys: Lupis Collins MD Discharge: Date of : 67 Report #: [id number] 9. Foot surgery. CURRENT MEDICATIONS: Tylenol 325 mg p.r.n., vitamin C plus barbara hips 500 mg, Excedrin Migraine formula, Tums chewable, Celebrex 200 mg, Zyrtec 10 mg b.i.d., Benadryl 50 mg q.6 hours, Cymbalta 60 mg b.i.d. to help control mood, vitamin D replacement 50,000 international units weekly, Nexium 40 mg, folic acid 1 mg, Lasix 40 mg, and hydrochlorothiazide 12.5 mg. ALLERGIES: PLASTIC TAPE, PAXIL, SULFA, IODINE, PENICILLIN V, AND ORANGE FOOD COLOR. 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 REVIEW OF SYSTEMS: Fever, night sweats, fatigue, weakness, headaches, eye disease/injury, wears glasses, blurred vision, hearing loss, headaches, chronic sinus problems, shortness of breath, heart trouble, chest pain, palpitations, chronic cough, shortness of breath, asthma, wheezing, abdominal pain, peptic ulcer, lightheadedness, dizziness, convulsion/seizures, nervousness/tingling sensation, head injury, memory loss, depression, and insomnia. PAIN CLINIC ASSESSMENT: 1. History of osteoarthritis. The patient has arthritic changes in her neck. 2. Pain intensity 10/27. 3. Fall risk. The patient has fallen on a number of occasions. She does walk with use of a walker as well as with a cane. 4. Blood thinner. The patient is not on a blood thinning medication. 5. Hypertension. The patient is not being treated for hypertension. 6. Opioid therapy greater than 6 weeks. The patient is on an opioid regimen and receives her medication from the pain clinic. 7. Risk assessment tool. 8. Functional assessment tool. 9. Recreational drug use. The patient denies use of recreational drugs. 10. Tobacco: The patient denies use of tobacco. 11. Alcohol: The patient occasionally drinks an alcoholic beverage. PHYSICAL EXAMINATION: GENERAL: The patient is a well-developed white female. She is slightly obese. She appears of stated age. She is alert and oriented x 3. Speech is fluent. Height is 5 feet 2 inches, weight is 205 pounds, and BMI is 37.4. VITAL SIGNS: Blood pressure is 116/69, pulse is 95, respiratory rate is 18, room air saturation is 92%, and temperature is 98.3. NECK: Some decreased range of motion. HEART: Regular rate. LUNGS: Clear to auscultation without rales or rhonchi. ABDOMEN: [place] [address] PAIN MANAGEMENT CONSULTATION Name: RAMON SAEZ Room: [facility]#: [id number] Admission: 11/12/17 Attend Phys: Lupis Collins MD Discharge: Date of : 67 Report #: [id number] MUSCULOSKELETAL: Upper extremity muscle strength is judged to be 4+/5 for the major muscle groups in the upper extremity without significant scoliosis, kyphosis, or lordosis. Lower extremity muscle strength is judged to be 4+. The patient uses her hands to go from a sitting to a standing position. She uses a walker to ambulate. It is somewhat on the less than stable while walking. Unable to close her eyes while standing without loss of balance. LABORATORY DATA: No laboratory values are available at the time of our interview. ASSESSMENT: 1. Chronic headache pain with history of Arnold Chiari syndrome. 2. Possible lupus. 3. Anterior cervical fusion at C5-C6. 4. History of aortic insufficiency. 5. Hypertension. 6. Asthma. 7. Chronic anemia. 8. Morbid obesity. 9. Degenerative osteoarthritis. 10. Chronic fatigue syndrome with positive Eve-Pathak titer. 11. Hypothyroidism. 12. Unidentified autoimmune disorder. 13. Status post right T3/T4/T5 central disk protrusion. RECOMMENDATIONS: We discussed the patient's current medical regimen. She feels that her medications continue to be helpful. We will continue with her current medications and a script for them has been written. Tizanidine 4 mg 1 p.o. t.i.d., total 90; hydromorphone 2 mg 1 p.o. q.12 hours p.r.n., total of 45; methadone 5 mg one-half tablet in a.m., 1 tablet at bedtime, total of 60 tablets; and Celebrex 200 mg 1 p.o. daily. Her medications have been written. The patient will call us if she has any problems. We would like to thank you for letting us to participate in her care. We hope she continues to improve. <ELECTRONICALLY SIGNED> By: Lupis Collins MD 11/18/17 1416 22 [id number]. Freeman Collins MD /[facility]
== END ==
LOC: M.PC 03:19
DX: M47.812 Spondylosis without myelopathy or radiculopathy, cervical region (principal); R51 Headache; M43.22 Fusion of spine, cervical region; I10 Essential (primary) hypertension; E03.9 Hypothyroidism, unspecified; J45.909 Unspecified asthma, uncomplicated; E66.09 Other obesity due to excess calories; D53.9 Nutritional anemia, unspecified

== ENCOUNTER → 2017-11-24 | Outpatient (CLI) | payer MEDICARE, BC | LOC: M.INFUS 11:49 | DX: G43.909 Migraine, unspecified, not intractable, without status migrainosus (principal) ==

== ENCOUNTER → 2017-12-02 | Outpatient (CLI) | payer MEDICARE, BC ==
[2017-12-02 08:35] VITALS: BP 128/74
[2017-12-02 09:18] VITALS: BP 122/66
--- NOTE | 2017-12-02 11:41 | NUR ---
ARRIVED AMBULATORY. MADE SELF COMFORTABLE. PORT A CATH ACCESSED WITH OUT DIFFICULTY. GOOD BRISK BLOOD RETURN AND EASY FLUSH. MONTHLY MIGRAINE COCKTAIL COMPLETED PER ORDER. PORT FLUSHED AND THEN DEACCESSED. TOLERATED WELL. DENIES NEEDS AT DISCHARGE.
== END ==
LOC: M.INFUS 03:12
DX: G43.909 Migraine, unspecified, not intractable, without status migrainosus (principal)

== ENCOUNTER → 2017-12-10 | Outpatient (CLI) | payer MEDICARE, BC ==
[2017-12-10 14:50] VITALS: BP 133/75
--- NOTE | 2017-12-10 14:58 | NUR ---
RECIEVED CALL FROM PT REQUESTING PRN MIGRAINE COCKTAIL. STATED SHE IS TRAVELING TODAY. ARRIVED AMBULATROY. MADE SELF COMFORTABLE IN RECLIENR. PORT A CATH ACCESSED WITHOUT DIFFICULTY. GOOD BRISK BLOOD RETURN NOTED AND FLUSHED WITH EASE. PRN MEDS COMPLETED. PORT FLUSHED AND DEACCESSED. TOELRATED WELL. DISCHARGED TO HOME AMBULATORY WITH SISTER IN LAW.. ELISHA
== END ==
LOC: M.INFUS 13:30
DX: G43.909 Migraine, unspecified, not intractable, without status migrainosus (principal)

== ENCOUNTER → 2017-12-16 | Outpatient (CLI) | payer MEDICARE, BC ==
[2017-12-16 11:52] VITALS: BP 132/75
== END ==
LOC: M.INFUS 10:26
DX: G43.909 Migraine, unspecified, not intractable, without status migrainosus (principal)

== ENCOUNTER → 2018-01-06 | Outpatient (CLI) | payer MEDICARE, BC ==
[2018-01-06 08:37] VITALS: BP 119/77
--- NOTE | 2018-01-06 09:42 | NUR ---
ARRIVED AMBULATORY. MADE SELF COMFORTABLE IN RECLINE. PORT A CATH ACCESSED WITH OUT DIFFICULTY. GOOD BRISK BLOOD RETURN NOTED AND FLUSHED WITH EASY. MONTHLY MEDS GIVEN PER STANDING ORDER. PORT FLUSHED AND DEACCESSED. DENIES QUESTIONS OR NEEDS AT DISCHARGE.
== END ==
LOC: M.INFUS 12-30 09:30
DX: G43.909 Migraine, unspecified, not intractable, without status migrainosus (principal)

== ENCOUNTER → 2018-01-07 | Outpatient (CLI) | payer MEDICARE, BC ==
--- NOTE | 2018-02-01 10:00 | PAINCON ---
[address] [address] PAIN MANAGEMENT CONSULTATION Name: RAMON SAEZ Room: [facility] Fani#: [id number] Admission: 01/07/18 Attend Phys: Lupis Collins MD Discharge: Date of : 67 Report #: [id number] THIS REPORT FOR: //name// CC: Muriel Collins DATE OF SERVICE: 01/07/2018 FOLLOWUP COMPLAINT: Chronic headaches. HISTORY OF PRESENT ILLNESS: The patient is a 52-year-old female who has a history of Arnold Chiari malformation. She has had surgery in the past. She states that she had surgery in about age 38. Overall, things over the years have been reasonably good. She continues to have pain and discomfort, which requires use of neuropathic pain medications as well as opioid medications. She states that she is being followed by a neurosurgeon. She feels that she may have reached maximum benefit from this. She states that he may not see her in the future. She is somewhat confused as to what this means. She continues to have some decline in her visual cortex. She has significant arthritis involving her left knee and other joints. She has been followed by a neurologist. States that her neurologist is "watching her." She is performing other tests. Continues to have some pain that radiates down into her arm. It involves her fingers. States that she has had some surgeries involving the cervical vertebrae in the upper area of her neck. She is unable to drive because of her condition. PAST MEDICAL HISTORY: The patient has some difficulty swallowing liquids at this juncture. She has been told that things will more than likely progress as time goes by. Swallowing most likely will become more problematic. ALLERGIES: PLASTIC TAPE, PAXIL, SULFA, IODINE, PENICILLIN, and ORANGE FOOD COLOR. CURRENT MEDICATIONS: Tylenol 325 mg p.r.n., vitamin C, Mili Hips 500 mg, Excedrin Migraine, Tums chewable, Celebrex 200 mg, Zyrtec 10 mg b.i.d., Benadryl 50 mg q.6h., Cymbalta 60 mg b.i.d., vitamin D 50,000 international units weekly, Nexium 40 mg, folic acid 1 mg, Lasix 40 mg, hydrochlorothiazide 12.5 mg, methadone 5 mg 1 p.o. b.i.d., Ativan 0.5 mg at bedtime, hydromorphone 2 mg 1 p.o. q. 12 hours. p.r.n., total of 45 tablets provided. PAIN CLINIC ASSESSMENT/PQRS: 1. Osteoarthritis. The patient has osteoarthritic changes in her left knee and has had a knee replacement. 2. Height 5 feet 2 inches, weight 205 pounds, BMI 37.4. 3. Vital signs: Blood pressure 125/70, heart rate 72, respiratory rate 16, [facility] [address] [place] [address] PAIN MANAGEMENT CONSULTATION Name: SERAMONMike SLATER [facility]: [facility]#: [id number] Admission: 01/07/18 Attend Phys: Lupis Collins MD Discharge: Date of : 67 Report #: [id number] room air saturation 96%, temperature 97.6. 4. Pain score 7/10. 5. Fall risk. The patient has not fallen in the last 3 months. 6. Blood thinner. The patient is not on a blood thinning medication. 7. Hypertension. The patient is not being treated for hypertension. 8. Opioid medications greater than 6 weeks. The patient receives her medication through the pain clinic. 9. Risk assessment tool. 10. Functional assessment tool. 11. Recreational drug use. 12. Tobacco. The patient denies use of tobacco. 13. Alcohol: The patient denies use of alcoholic beverages. PHYSICAL EXAMINATION: GENERAL: The patient is a well-developed, well-nourished white female. Appears her stated age. She is alert and oriented x 3. Affect is somewhat somber. Speech is fluent. HEENT: Normocephalic, atraumatic. Extraocular muscles intact. Sclerae nonicteric. Mucous membranes are moist. The patient has a well-healed scar in the posterior portion of her neck. She has decreased range of motion. HEART: Regular rate. LUNGS: Clear to auscultation without rhonchi or rales. ABDOMEN: Protuberant. MUSCULOSKELETAL: Without significant scoliosis or kyphosis noted. The patient walks without significant problem with her gait. Does use her hands to go from a sitting to a standing position. Has walked with a walker in the past. Did not have a walker today. The patient has some loss of vision. Has some loss of balance. Has noted difficulty in swallowing, must use thickener in her food. ASSESSMENT: 1. Chronic headaches with history of Arnold Chiari syndrome. 2. Possible lupus. 3. Anterior cervical fusion, C5/C6. 4. History of aortic insufficiency. 5. Hypotension. 6. Asthma. 7. Chronic anemia. 8. Morbid obesity. 9. Degenerative osteoarthritis involving the left knee. 10. Chronic fatigue syndrome with positive Eve-Pathak titer. 11. Hypothyroidism. 12. Unidentified autoimmune disorder. 13. Status post T3/T4/T5 central disk protrusions. RECOMMENDATIONS: We discussed treatment options with the patient. We will continue with her current medication regimen. The patient is somewhat [facility] [address] [place] [address] PAIN MANAGEMENT CONSULTATION Name: RAMON SAEZ Room: [facility]#: [id number] Admission: 01/07/18 Attend Phys: Lupis Collins MD Discharge: Date of : 67 Report #: [id number] disheartened at her surgeon who has said that he did not expect to see her again. She does not know what exactly that entails or what that means. She will continue with her medications. She will call us if she has any concerns. We would like to thank you for letting us participate in her care. A script for her medications of methadone and hydromorphone have been rewritten. She will call us if she has any problems or complaints. We would like to thank you for letting us participate in her care. <ELECTRONICALLY SIGNED> By: Lupis Collins MD 02/01/18 1000 [id number] 1214N. Freeman Collins MD /nt
== END ==
LOC: M.PC 01:44
DX: G89.29 Other chronic pain (principal); R51 Headache; I10 Essential (primary) hypertension; J45.909 Unspecified asthma, uncomplicated; E03.9 Hypothyroidism, unspecified; D89.89 Other specified disorders involving the immune mechanism, not elsewhere classified; R53.82 Chronic fatigue, unspecified; D64.9 Anemia, unspecified; E66.01 Morbid (severe) obesity due to excess calories; M43.22 Fusion of spine, cervical region; Q07.00 Arnold-Chiari syndrome without spina bifida or hydrocephalus; Z86.79 Personal history of other diseases of the circulatory system

== ENCOUNTER → 2018-01-12 | Outpatient (CLI) | payer MEDICARE, BC ==
[2018-01-12 10:31] VITALS: BP 128/74
[2018-01-12 11:00] VITALS: BP 134/76
--- NOTE | 2018-01-12 12:07 | NUR ---
ARRIVED AMBULATORY. MADE SELF COMFORTABLE IN RECLINER. FRIEND AT CHAIRSIDE. PORT A CATH ACCESSED WTIH OUT DIFFICULTY. GOOD BRISK BLOOD RETURN NOTED AND FLUSHED WITH EASE. ORDERED LABS DRAWN. STANDING ORDER FOR MIGRAINE COCKTAIL COMPLETED. PORT FLUSHED AND DEACCESSED. TOLERATED WELL. CARRIE QUESTIONS OR NEEDS AT DISCHARGE.
[2018-01-12 12:14] LABS: ABSOLUTE BASOPHILS 0.1 thou/uL (0.0-0.2); ABSOLUTE EOSINOPHILS 0.3 thou/uL (0.0-0.7); ABSOLUTE LYMPHOCYTES 3.4 thou/uL (0.8-5.3); ABSOLUTE MONOCYTES 0.6 thou/uL (0.0-1.2); ABSOLUTE NEUTROPHILS 4.1 thou/uL (1.6-8.1); BASOPHILS 0.8 %; EOSINOPHILS 3.8 %; HEMATOCRIT 35.8 % (37.0-47.0); HEMOGLOBIN 11.6 gm/dL (12.0-15.0); LYMPHOCYTES 40.3 %; MCHC 32.5 g/dL (28.0-37.0); MCV 92.4 fL (80.0-100.0); MONOCYTES 7.2 %; MPV 9.5 fl. (7.2-11.1); NUCLEATED RBCS 0 /100WBC; PLATELET COUNT* 268 thou/uL (150-400); POLYS 47.9 %; RBC 3.88 mil/uL (4.20-5.00); WBC 8.5 thou/uL (4.0-11.0)
[2018-01-12 12:34] LABS: ALBUMIN 3.1 g/dL (3.4-5.0); ALKALINE PHOSPHATASE 105 U/L (46-116); ANION GAP 3 mmol/L (7-16); BUN 10 mg/dL (7-18); CALCIUM 7.8 mg/dL (8.5-10.1); CHLORIDE 106 mmol/L (98-107); CHOLESTEROL 117 mg/dL (<200); CO2 31 mmol/L (21-32); CREATININE 0.7 mg/dL (0.6-1.3); GLUCOSE 85 mg/dL (70-99); HDL CHOLESTEROL 65 mg/dL (>40); LDL CHOLESTEROL 44 mg/dL (<100); POTASSIUM 3.5 mmol/L (3.5-5.1); SERUM ASSESSMENT Clear; SGOT 25 U/L (15-37); SGPT 22 U/L (30-65); SODIUM 140 mmol/L (136-145); TC:HDL 1.8 Ratio (Not establshd); TOTAL BILIRUBIN 0.7 mg/dL (<0.1-1.0); TOTAL PROTEIN 6.1 g/dL (6.4-8.2); TRIGLYCERIDE 42 mg/dL (<150); VLDL 8 mg/dL (<40)
[2018-01-12 13:15] LABS: ESR (SEDRATE) 10 mm/hr (0-30)
== END ==
LOC: M.INFUS 04:51
PROVIDERS: Internal Medicine Rheumatology
DX: G43.909 Migraine, unspecified, not intractable, without status migrainosus (principal); E03.9 Hypothyroidism, unspecified; E55.9 Vitamin D deficiency, unspecified; E78.5 Hyperlipidemia, unspecified; Z79.899 Other long term (current) drug therapy

== ENCOUNTER → 2018-01-20 | Outpatient (CLI) | payer MEDICARE, BC ==
[2018-01-20 09:28] VITALS: BP 136/83
== END ==
LOC: M.INFUS 09:51
DX: G43.909 Migraine, unspecified, not intractable, without status migrainosus (principal)

== ENCOUNTER → 2018-02-03 | Outpatient (CLI) | payer MEDICARE, BC ==
[2018-02-03 10:25] VITALS: BP 119/63
--- NOTE | 2018-02-03 13:59 | NUR ---
ARRIVED AMBULATORY. MADE SELF COMFORTABLE IN RECLINER. PORT A CATH ACCESSED WITH OUT DIFFICULTY. EASY FLUSH BUT NO BLOOD RETURN. PER STANDING ORDER CATH FLOW DONE PER HOSPTAL PROTOCOL. AFTER 45MIN BLOOD RETURN NOTED WITH ASPERATION. IVP MEDS COMPLETED ORDERED. PORT FLUSHED AND DEACCESSED.
== END ==
LOC: M.INFUS 08:34
DX: G43.909 Migraine, unspecified, not intractable, without status migrainosus (principal)

== ENCOUNTER → 2018-02-09 | Outpatient (CLI) | payer MEDICARE, BC ==
[2018-02-09 17:05] VITALS: BP 138/74
--- NOTE | 2018-02-09 17:05 | NUR ---
PT ARRIVED TO PREOP AREA FOR OUTPT TREATMENT OF IV MEDICATION. ORDERS REVIEWED. LEFT CHEST PORT ACCESSED PER STERILE TECHNIQUE, ASPIRATED BLOOD, FLUSHED EASILY, MEDICATIONS GIVEN. PORT FLUSHED WITH SALINE AND HEPARIN, DEACCESSED, GAUZE APPLIED TO PORT SITE. DISMISSED VIA AMBULATORY TO HOME. GAIT STEADY, ESCORTED BY NURSE TO FAMILY VEHICLE.
== END ==
LOC: M.INFUS 16:00
DX: G43.909 Migraine, unspecified, not intractable, without status migrainosus (principal); E03.9 Hypothyroidism, unspecified; E55.9 Vitamin D deficiency, unspecified; E78.5 Hyperlipidemia, unspecified; Z79.899 Other long term (current) drug therapy

== ENCOUNTER → 2018-02-17 | Outpatient (CLI) | payer MEDICARE, BC ==
--- NOTE | 2018-02-17 12:53 | NUR ---
arrived ambulatory with friend corie as steam train driver. made self comfortable in reclienr. port a cath accessed with out difficulty. good brisk blood return noted and flushed with ease. order for one time lab from dr. mansfield noted. labs drawn from port. pt request prn stading order for meds be given. meds done and tolerated well. port flushed and left accessed for use by [facility] for iron therapy today. deneis needs at discharge.
--- NOTE | 2018-02-19 09:50 | NUR ---
Recieved a call from patient requesting lab work to be sent to Dr. Lopez's office. Printed lab and faxed to [phone] Dr. Lopez
== END ==
LOC: M.INFUS 02:08
PROVIDERS: Obstetrics & Gynecology
DX: G43.909 Migraine, unspecified, not intractable, without status migrainosus (principal)

== ENCOUNTER → 2018-03-02 | Outpatient (CLI) | payer MEDICARE, BC ==
--- NOTE | 2018-03-03 15:35 | PAINCON ---
[address] [address] PAIN MANAGEMENT CONSULTATION Name: SERAMONMike SLATER Room: [facility] Mohr#: [id number] Admission: 03/02/18 Attend Phys: Lupis Collins MD Discharge: Date of : 67 Report #: [id number] THIS REPORT FOR: //name// CC: Muriel Collins DATE OF SERVICE: 03/02/2018 FOLLOWUP COMPLAINT: Chronic headaches. HISTORY: The patient is a 52-year-old female who has been followed in the pain clinic because of chronic pain. As you may recall, she suffers from Arnold-Chiari malformation. She has had surgeries in the past. Has had problems for some time. Her surgery was at approximately age 38. Over the years, she has done reasonably well. She feels that she is not doing as well at this juncture. She is losing some of her vision. States that she has been told by her doctor that her brain has shrunk to an 80-year-old. I told her that things would probably continue to do poorly as time went on. States that she is having some difficulty swallowing, has noted some changes in her vision. She has been using Botox over the years. Feels that overall that the benefit that she gets from the Botox is not worthy, soreness that she is feeling in her head and scalp as a result of injections. She feels that at this point, the 2-week period of benefit does not warrant the amount of discomfort that she is experiencing. States that she is having some comfort or some problems with her balance. Sometimes feels as though she is going to fall backwards. She did fall and fracture her wrist at sometime in the past. This left wrist is still healing at this juncture. She has some cancer markers which were found. She has been told that she should have surgery. She is scheduled to have surgery in the next few days. She is having some heavy bleeding. She has been postmenopausal for some time. She said, they were unable to get a biopsy of the specimen. States that she may have a hysterectomy. Has had some problem with her left knee with fluid accumulation. She has worn a brace in the past. The patient states that she may undergo chemotherapy or may be offered chemotherapy. She is not sure that she would like to undergo chemotherapy at this juncture. ALLERGIES: PLASTIC TAPE, PAXIL, SULFA, IODINE, PENICILLIN, ORANGE, FOOD COLOR. MEDICATIONS: Tylenol 325 mg p.r.n., vitamin C, barbara hips 500 mg, Excedrin Migraine, Tums chewable, Celebrex 200 mg, Zyrtec 10 mg b.i.d., Benadryl 50 mg q. 6 hours, Cymbalta 60 mg b.i.d., vitamin D 50,000 international units weekly, Nexium 40 mg, folic acid 1 mg, Lasix 40 mg, hydrochlorothiazide 12.5 mg, methadone 5 mg b.i.d., Ativan 0.5 mg at bedtime, hydromorphone 2 mg 1 p.o. q.12 hours p.r.n., total 45 tablets. PAIN CLINIC ASSESSMENT/PQRS:. 1. Osteoarthritis, patient has osteoarthritic changes in her left knee and has [facility] [address] [place] [address] PAIN MANAGEMENT CONSULTATION Name: RAMON SAEZ Room: [facility] Mohr#: [id number] Admission: 03/02/18 Attend Phys: Lupis Collins MD Discharge: Date of : 67 Report #: [id number] had a knee replacement. 2. Height 5 feet 2 inches, weight 205 pounds, BMI is 37.6. 3. Vital signs: Blood pressure 131/61, heart rate 72, respiratory rate 16, room air saturation 99%, temperature 98.2. 4. Pain intensity 7/10. 5. Fall risk. The patient has not fallen in the last 3 months. 6. Blood thinner. The patient is not on a blood thinning medication. 7. Hypertension. The patient is not being treated for hypertension. 8. Opioid therapy greater than 6 weeks. The patient receives her medication from [facility], the pain clinic. 9. Risk assessment tool. 10. Functional assessment tool. 11. Recreational drug use. The patient denies use of recreational drugs. 12. Tobacco: The patient denies use of tobacco. 13. Alcohol: The patient denies use of alcoholic beverages. PHYSICAL EXAMINATION: GENERAL: The patient is a well-developed, well-nourished white female, appears her stated age. She is alert and oriented x 3. She is somewhat somber in appearance. Speech is fluent. HEENT: Normocephalic, atraumatic. Extraocular eye muscles intact. Sclerae nonicteric. Mucous membranes are moist. The patient has a well-healed scar in the posterior portion of her neck. She has decreased range of motion. HEART: Regular rate. S1, S2. LUNGS: Clear to auscultation without rhonchi or rales. ABDOMEN: Protuberant. Bowel sounds present. MUSCULOSKELETAL: Without significant scoliosis, kyphosis or lordosis. The patient walks without problematic gait. Does use her hand to go from sitting to a standing position. Has walked and use a walker. She has not used a walker today. Does note some loss of vision. Has somewhat more increased difficulty with balance. States that she is having more difficulty swallowing. Tends to eat thicker food. ASSESSMENT: 1. Chronic headaches with history of Arnold Chiari syndrome. 2. Possible lupus. 3. Anterior cervical fusion C5-C6. 4. History of aortic insufficiency. 5. Hypotension. 6. Asthma. 7. Chronic anemia. 8. Morbid obesity. 9. Osteoarthritis involved in the left knee. 10. Chronic fatigue syndrome with positive Eve-Pathak titer. 11. Hypothyroidism. 12. [place] [address] PAIN MANAGEMENT CONSULTATION Name: RAMON SAEZ Room: [facility]#: [id number] Admission: 03/02/18 Attend Phys: Lupis Collins MD Discharge: Date of : 67 Report #: [id number] 13. Status post T3/T4/T5 central disk protrusions. RECOMMENDATIONS: We discussed treatment options with the patient. At this juncture, she feels that her medications continue to be helpful. She would like to continue their use. She has had no complication from them. She still feels somewhat disheartened and that she is not getting very good news about her condition. There is possibility of a cancer problem. She is scheduled to undergo surgery in a couple of days in this regard. States that she is having some heavy periods. Has some fluid on her left knee. Has used Botox injections in the forehead. Is considering stopping the use of the Botox injection secondary to the pain associated with them, 2 weeks post-injection. A script for her medications have been written. She will continue with the Celebrex, Cymbalta, tizanidine, hydromorphone. We would like to thank you for letting us participate in her care. We hope she continues to improve. <ELECTRONICALLY SIGNED> By: Lupis Collins MD 03/03/18 1535 [id number]. Freeman Collins MD /nt
== END ==
LOC: M.PC 04:40
DX: M43.22 Fusion of spine, cervical region (principal); R51 Headache; M17.12 Unilateral primary osteoarthritis, left knee; M51.24 Other intervertebral disc displacement, thoracic region; J45.909 Unspecified asthma, uncomplicated; I95.9 Hypotension, unspecified; E66.01 Morbid (severe) obesity due to excess calories; E03.9 Hypothyroidism, unspecified; D50.0 Iron deficiency anemia secondary to blood loss (chronic); R53.82 Chronic fatigue, unspecified; B27.00 Gammaherpesviral mononucleosis without complication; D89.89 Other specified disorders involving the immune mechanism, not elsewhere classified

== ENCOUNTER → 2018-03-03 | Outpatient (CLI) | payer MEDICARE, BC ==
[2018-03-03 10:49] VITALS: BP 136/76
--- NOTE | 2018-03-03 10:49 | NUR ---
ARRIVED AMBULATORY. MADE SELF COMFORTABLE IN RECLINER. PORT A CATH ACCESSED WITHOUT DIFFICULTY. EASY FLUSH W/GOOD BRISK BLOOD RETURN. IVP MEDS COMPLETED ORDERED. PORT FLUSHED W/20 ML NS AND 5 ML HEPARIN FLUSH. PT LEFT ACCESSED PT IS HAVING GYNECOLOGICAL SURGERY TOMORROW AM AT [facility].
== END ==
LOC: M.INFUS 04:57
DX: G43.909 Migraine, unspecified, not intractable, without status migrainosus (principal)

== ENCOUNTER → 2018-03-10 | Outpatient (CLI) | payer MEDICARE, BC ==
[2018-03-10 09:45] VITALS: BP 112/65
--- NOTE | 2018-03-10 12:07 | NUR ---
ARRIVED AMBULATORY. MADE SELF COMFORTABLE IN RECLINER. PORT A CATH ACCESSED WTIH OUT DIFFICULTY. GOOD BRISK BLOOD RETURN NOTED AND FLUSHED WITH EASE. IV INJECTION COMPLETED AND TOLERATED WELL. DENIES NEEDS AT DISCHARGE.
== END ==
LOC: M.INFUS 02-24 09:30
DX: G43.909 Migraine, unspecified, not intractable, without status migrainosus (principal)

== ENCOUNTER → 2018-03-17 | Outpatient (CLI) | payer MEDICARE, BC ==
[2018-03-17 09:10] VITALS: BP 122/74
--- NOTE | 2018-03-17 11:42 | NUR ---
CALL RECIEVED REQUESTING TO COME IN FOR PRN MEDS FOR MIGRAINE COCKTAIL. ARRIVED AMBULATORY. MADE SELF COMFORTABLE IN RECLINER. PORT A CATH ACCESSED WITH OUT DIFFICULTY. GOOD BRISK BLOOD RETURN NOTED AND FLUSHED WITH EASE. PRN IV PUSH MEDS COMPLETED PER STANDING ORDER. PORT FLUSHED AND DEACCESSED. DENIES NEEDS AT DISCHARGE.
== END ==
LOC: M.INFUS 08:53
DX: G43.909 Migraine, unspecified, not intractable, without status migrainosus (principal)

== ENCOUNTER → 2018-03-24 | Outpatient (CLI) | payer MEDICARE, BC ==
[2018-03-24 08:45] VITALS: BP 100/59
--- NOTE | 2018-03-24 09:14 | NUR ---
ARRIVED AMBULATORY. MADE SELF COMFORTABLE IN RECLINER. PORT A CATH ACCESSED AND NOTED TO BE PATENT. GOOS BRISK BLOOD RETURN AND EASY FLUSH. IVP MEDS PER STANDING ORDER COMPLETED AND TOLERATED WELL. PORT FLUSHED AND LEFT ACCESSED FOR BLOOD DRAW LATER TODAY. DENIES NEEDS AT DISCHARGE.
== END ==
LOC: M.INFUS 05:28
DX: G43.909 Migraine, unspecified, not intractable, without status migrainosus (principal)

== ENCOUNTER → 2018-03-31 | Outpatient (CLI) | payer MEDICARE, BC ==
[2018-03-31 08:38] VITALS: BP 132/75
--- NOTE | 2018-03-31 10:03 | NUR ---
PT HERE FOR PORT A CATH ACCESS AND STANDING ORDER MIGRAINE COCKTAIL. PT HAS HYSTERECTOMY SCHEDULED FOR THIS AFTERNOON AT [facility]. PORT ACCESSED AND GOOD BLOOD RETURN AND EASY FLUSH. MIGRAINE COCKTAIL COMPLETED MINUS THE SOLUMEDROL AT PT REQUEST. TOLERATED WELL. PT LEFT WITH PORT ACCESSED FOR USE IN SURGERY TODAY. DENIES QUESTIONS OR NEEDS AT DISCHARGE.
== END ==
LOC: M.INFUS 02:38
DX: G43.909 Migraine, unspecified, not intractable, without status migrainosus (principal)

== ENCOUNTER → 2018-04-02 | Outpatient (CLI) | payer MEDICARE, BC ==
[2018-04-02 10:18] VITALS: BP 132/84
[2018-04-02 11:48] VITALS: BP 118/70
--- NOTE | 2018-04-02 12:35 | NUR ---
ARRIVED AMBULATROY WITH CANE. MADE SELF COMFORTABE IN RECLINER. PORT A CATH ACCESSED. GOOD BLOOD RETURN AND EASY FLUSH. PRN MEDS COMPLETED PER STANDING ORDER. PORT FLUSHED AND DEACCESSED. TOLERATED WELL. DENIES QUESTIONS OR NEEDS AT DISCHARGE.
== END ==
LOC: M.INFUS 10:00
DX: G43.909 Migraine, unspecified, not intractable, without status migrainosus (principal)

== ENCOUNTER → 2018-04-07 | Outpatient (CLI) | payer MEDICARE, BC ==
[2018-04-07 09:30] VITALS: BP 130/80
--- NOTE | 2018-04-07 11:08 | NUR ---
ARRIVED AMBULATORY. MADE SELF COMFORTABLE IN RECLIENR. GENERALIZED SWELLING NOTED TO WHOLE BODY AND PORT FELT DEEP AND VERY MOBILE TODAY. PORT WAS ACCESSED WITH OUT DIFFICULTY. SLUGGISH BLOOD RETURN NOTED. IVP MEDS COMPLETED AND TOELRATED WELL. PORT FLUSHED AND DEACCESSED. DISSCUSSED WITH PT POSSIBLE NEED FOR CATH FLOW. VOICED UNDERSTANDING. ELIAN, SISTER IN LAW, HERE FOR PT TRANSPORT HOME.
== END ==
LOC: M.INFUS 04:32
DX: G43.909 Migraine, unspecified, not intractable, without status migrainosus (principal)

== ENCOUNTER → 2018-04-21 | Outpatient (CLI) | payer MEDICARE, BC ==
[2018-04-21 11:08] VITALS: BP 132/74
[2018-04-21 11:40] VITALS: BP 120/72
--- NOTE | 2018-04-21 11:44 | NUR ---
ARRIVED AMBULATORY. MADE SELF COMFORTABLE IN RECLINER. PORT A CATH ACCESSED WITH OUT DIFFICULTY GOOD BRISK BLOOD RETURN NOTED AND FLUSHED WITH EASE. PRN MIGRAINE COCKTAIL COMPLETED PER ORDER. DENIES QUESTIONS OR NEEDS.
== END ==
LOC: M.INFUS 10:30
DX: G43.909 Migraine, unspecified, not intractable, without status migrainosus (principal)

== ENCOUNTER → 2018-05-05 | Outpatient (CLI) | payer MEDICARE, BC ==
[2018-05-05 09:50] VITALS: BP 149/89
--- NOTE | 2018-05-05 11:57 | NUR ---
ARRIVED AMUBLATORY. MADE SELF COMFORTABLE IN RECLINER. PORT A CATH ACCESSED WITH OUT DIFFICULTY. GOOD BRISK BLOOD RETURN NOTED AND FLUSHED WITH EASE. STANDING ORDER IVP MEDS COMPLETED FOR MONTHLY MIGRAINE COCKTAIL. LINE FLUSHED AND DEACCESSED. TOLERATED WELL. DENIES NEEDS AT DISCHARGE.
== END ==
LOC: M.INFUS 02-24 09:30
DX: G43.909 Migraine, unspecified, not intractable, without status migrainosus (principal)

== ENCOUNTER → 2018-05-11 | Outpatient (CLI) | payer MEDICARE, BC ==
[2018-05-11 10:30] VITALS: BP 147/75
--- NOTE | 2018-05-11 11:04 | NUR ---
ARRIVED AMUBLATORY WITH FRIEND. MADE SELF COMFORTABLE IN RECLINER. PORT A CATH ACCESSED WITH OUT DIFFICULTY. GOOD BRISK BLOOD RETURN NOTED AND FLUSHED WITH EASE. MIGRAINE COCKTAIL COMPLETED PER STANMDING ORDER. PT MONITORED 30 MIN POST AND DISCHARGED HOME WITH FRIEND. DENIES QUESTION OR NEEDS AT DISCHARGE.
== END ==
LOC: M.INFUS 04:13
DX: G43.909 Migraine, unspecified, not intractable, without status migrainosus (principal)

== ENCOUNTER → 2018-05-20 | Outpatient (CLI) | payer MEDICARE, BC ==
[2018-05-20 12:28] VITALS: BP 165/89
--- NOTE | 2018-05-20 13:13 | NUR ---
CALL RECIEVED FROM PT REQUESTING TO COME IN FOR MIGRAINE COCKTAIL. PT ARRIVED AMBULATORY WITH FRIEND. MADE SELF COMFORTABLE IN RECLINER. PORT A CATH ACCESSED WITH OUT DIFFICULTY. GOOD BRISK BLOOD RETURN NOTED AND FLUSHED WITH EASE. IVP MEDS PER ORDER. TOLERATED WELL. PORT FLUSHED AND DEACCESSED. DENIES NEEDS AT DISCHARGE.
== END ==
LOC: M.INFUS 11:00
DX: G43.909 Migraine, unspecified, not intractable, without status migrainosus (principal)

== ENCOUNTER → 2018-05-26 | Outpatient (CLI) | payer MEDICARE, BC ==
[2018-05-26 15:00] VITALS: BP 140/80
--- NOTE | 2018-05-26 16:37 | NUR ---
CALL RECIEVED FROM PA. REQUESTING BE SEEN TODAY PER HER REQUEST. PT ARRIVED AMBULATORY. MADE SELF COMFORTABLE. PT REPORT FEELING SWOLLEN AND GENERALIZED PAIN. IVP MEDS COMPLETED AND TOLERATED WELL. PORT FLUSHED AND DEACCESSED. TOLERATED WELL. DENEIS NEEDS AT DISCHARGE.
== END ==
LOC: M.INFUS 14:30
DX: G43.909 Migraine, unspecified, not intractable, without status migrainosus (principal)

== ENCOUNTER → 2018-06-02 | Outpatient (CLI) | payer MEDICARE, BC ==
[~2018-06-02] MED LIST changes: +PROZAC10 MG PO; +ZANAFLEX4 MG PO
[2018-06-02 10:20] VITALS: BP 156/75
[2018-06-02 10:55] VITALS: BP 148/77
== END ==
LOC: M.INFUS 10:00
DX: G43.909 Migraine, unspecified, not intractable, without status migrainosus (principal)

== ENCOUNTER → 2018-06-09 | Outpatient (CLI) | payer MEDICARE, BC ==
[~2018-06-09] MED LIST changes: -PROZAC10 MG PO; -ZANAFLEX4 MG PO
[2018-06-09 09:25] VITALS: BP 132/74
--- NOTE | 2018-06-09 11:18 | NUR ---
ARRIVED AMBULATORY. MADE SELF COMFORTABLE IN RECLINER. PORT A CATH ACCESSED WTIH OUT DIFFICULTY. GOOD BRISK BLOOD RETURN NOTED AND FLUSHED WITH EASE. MONTHLY STANDING ORDER PRN MEDS COMPLETED AND TOLREATED WELL. PT MONITORED 30 MIN POST AND RIDE HOME VERIFIED. DENEIS NEED AT DISHCARGE.
== END ==
LOC: M.INFUS 04:58
DX: G43.909 Migraine, unspecified, not intractable, without status migrainosus (principal); L50.9 Urticaria, unspecified

== ENCOUNTER → 2018-06-16 | Outpatient (CLI) | payer MEDICARE, BC ==
[~2018-06-16] MED LIST changes: +PROZAC10 MG PO; +ZANAFLEX4 MG PO
[2018-06-16 11:30] VITALS: BP 110/70
--- NOTE | 2018-06-16 13:29 | NUR ---
PT CALLED REQUESTING HER PRN IV PUSH MEDS. ARRIVED AMBULATORY. PORT ACCESSED WITH OUT DIFFICULTY. PORT PATENT. IV PUSH MEDS COMPLETED AND TOELRATED WELL. DENIES NEEDS AT DISCHARGE.
== END ==
LOC: M.INFUS 10:41
DX: G43.909 Migraine, unspecified, not intractable, without status migrainosus (principal)

== ENCOUNTER → 2018-06-24 | Outpatient (CLI) | payer MEDICARE, BC ==
[~2018-06-24] MED LIST changes: -PROZAC10 MG PO; -ZANAFLEX4 MG PO
--- NOTE | 2018-06-24 14:15 | NUR ---
CALL RECIEVED FROM PT REQUESTIONG TO COME IN FOR PRN MIGRAINE COCKTAIL. REPORTS GENERALIZED DISCOMFORT WITH SWELLING. PT ARRIVED AMBULATORY. MADE SELF COMFORTABLE IN RELCIENR. PORT ACCESSED WITH OUT DIFFICULTY. GOOD BRISK BLOOD RETURN NOTED AND FLUSHED WITH EASE. IVP MEDS COMPLETED PER STANDING ORDER. PORT FLUSHED AND DEACCESSED. PT MONITORED AND DISCHARGED HOME WITH ELECTRICAL PANEL BUILDER AND MAINTENANCE PERSON.
== END ==
LOC: M.INFUS 12:00
DX: G43.909 Migraine, unspecified, not intractable, without status migrainosus (principal); L50.9 Urticaria, unspecified

== ENCOUNTER → 2018-06-29 | Outpatient (CLI) | payer MEDICARE, BC ==
--- NOTE | ~2018-06-29 | PAINCON ---
[address] [address] PAIN MANAGEMENT CONSULTATION Name: RAMON SAEZ [id number] Admission: 06/29/18 Attend Phys: Lupis Collins MD Discharge: Date of : 67 Report #: [id number] THIS REPORT FOR: //name// CC: Muriel Collins DATE OF SERVICE: 06/29/2018 CHIEF COMPLAINT: Chronic headaches. HISTORY OF PRESENT ILLNESS: The patient is a 52-year-old female followed in the pain clinic because of chronic pain. As you recall, she suffers from Arnold-Chiari malformation. She has had a number of surgeries in the past. At this juncture, she finds that the pain continues to be problematic. She somewhat of a quandary as to what to do. Continues to have occipital pain. As high pressure sensation behind her eye and states that she is beginning to lose portions of her vision. She has had a history of capillary leak syndrome. Does have some left knee pain and has been using a brace. She has returned today for renewal of her medications. ALLERGIES: PLASTIC TAPE, PAXIL, SULFA, IODINE, PENICILLIN, ORANGE - FOOD COLOR. MEDICATIONS: Tylenol 325 mg, vitamin C, Mili Hips 500 mg, Excedrin Migraine, Tums chewable, Celebrex 200 mg, Zyrtec 10 mg b.i.d., Benadryl 50 mg every 6 hours, Cymbalta 60 mg b.i.d., vitamin D 50,000 international units weekly, Nexium 40 mg, folic acid 1 mg, Lasix 40 mg, hydrochlorothiazide 12.5 mg, methadone 5 mg b.i.d., Ativan 0.5 mg at bedtime, hydromorphone 2 mg 1 p.o. every 12 hours p.r.n., total of 45 tablets dispense. PAIN CLINIC ASSESSMENT/PQRS: 1. Osteoarthritis. The patient has some osteoarthritic changes in her left knee and has had a knee replacement. 2. She has not been treated for rheumatoid arthritis. 3. Height 5 feet 2 inches, weight 210 pounds, BMI is 30.3. 4. Vital signs: Blood pressure 98/66, heart rate 68, respiratory rate 16, room air saturation 97%, temperature 97.5. 5. Pain intensity 12/28. 6. Fall risk. The patient has not fallen in the last 3 months. 7. Blood thinner. The patient is not on a blood thinning medication. 8. Hypertension. The patient is not being treated for hypertension. 9. Opioid therapy greater than 6 weeks. 10. The [facility]. 11. Risk assessment tool. 12. Functional assessment tool. 13. Recreational drug use. The patient denies use of recreational drugs. 14. Alcohol: The patient denies [place] [address] PAIN MANAGEMENT CONSULTATION Name: RAMON SAEZ BRYON Room: [facility]#: [id number] Admission: 06/29/18 Attend Phys: Lupis Collins MD Discharge: Date of : 67 Report #: [id number] 15. Tobacco: The patient denies use of tobacco. PHYSICAL EXAMINATION: GENERAL: The patient is a well-developed, somewhat obese white female, appears her stated age. She is alert and oriented x 3. Affect is appropriate. The patient is still showing concerned about which direction to go in regard to her health. HEAD, EYES, EARS, NOSE, AND THROAT: Normocephalic, atraumatic. Extraocular eye muscles intact. Sclerae nonicteric. Mucous membranes are moist. The patient has a well-healed scar posterior portion of her neck, decreased range of motion result of surgery. HEART: Regular rate. S1, S2. ABDOMEN: Protuberant. Bowel sounds present. MUSCULOSKELETAL: Without significant scoliosis, kyphosis or lordosis. The patient has some difficulty with her gait. Use her hands go from sitting to a standing position in the examination room. Does walk with a walker. Continues to feel that she is losing portion of vision. She has difficulty with balance. Some difficulty swallowing. She has difficulty eating thicker foods. ASSESSMENT: 1. Chronic headaches with history of Arnold-Chiari syndrome. 2. Possible lupus. 3. Anterior cervical fusion C5/C6. 4. History of aortic insufficiency. 5. Hyperthyroidism. 6. Hypotension. 7. Asthma. 8. Chronic anemia. 9. Morbid obesity. 10. Osteoarthritic changes involving the left knee. 11. Chronic fatigue syndrome with positive Eve-Pathak titer. 12. Hypothyroidism. 13. Unidentified autoimmune disorder. 14. Status post T3/T4/T5 central disk protrusions. RECOMMENDATIONS: We have no good ideas that would make it significantly improved the patient's quality of life. We have given her the idea possibility of going to the [facility] to see whether or not they have options that might prove fruitful. At this juncture, we will continue with her current medications. A script for her medications have been written. The patient will continue to go to physical therapy to help with some weak knee. She is wearing a brace. Continues to note some decline in her vision. [facility] [address] [place] [address] PAIN MANAGEMENT CONSULTATION Name: RAMON SAEZ Room: [facility]#: [id number] Admission: 06/29/18 Attend Phys: Lupis Collins MD Discharge: Date of : 67 Report #: [id number] We would like to thank you for letting us to participate in the care. We hope she continues to improve. By: [id number]. Freeman Collins MD /PMT
== END ==
LOC: M.PC 04-29 09:10
DX: R51 Headache (principal); M43.22 Fusion of spine, cervical region; M17.12 Unilateral primary osteoarthritis, left knee; E05.90 Thyrotoxicosis, unspecified without thyrotoxic crisis or storm; I95.9 Hypotension, unspecified; J45.909 Unspecified asthma, uncomplicated; D64.9 Anemia, unspecified; E66.01 Morbid (severe) obesity due to excess calories; E03.9 Hypothyroidism, unspecified; R53.82 Chronic fatigue, unspecified; B27.00 Gammaherpesviral mononucleosis without complication; D89.89 Other specified disorders involving the immune mechanism, not elsewhere classified; Z68.30 Body mass index [BMI] 30.0-30.9, adult

== ENCOUNTER → 2018-06-29 | Outpatient (CLI) | payer MEDICARE, BC ==
[~2018-06-29] MED LIST changes: +PROZAC10 MG PO; +ZANAFLEX4 MG PO
[2018-06-29 12:25] VITALS: BP 108/68
[2018-06-29 13:25] VITALS: BP 124/70
== END ==
LOC: M.INFUS 12:09
DX: G43.909 Migraine, unspecified, not intractable, without status migrainosus (principal); L50.9 Urticaria, unspecified

== ENCOUNTER → 2018-07-05 | Outpatient (CLI) | payer MEDICARE, BC ==
[2018-07-05 08:05] VITALS: BP 132/74
[2018-07-05 08:45] VITALS: BP 122/70
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
== END ==
LOC: M.INFUS 08:19
DX: G43.909 Migraine, unspecified, not intractable, without status migrainosus (principal); L50.9 Urticaria, unspecified

== ENCOUNTER → 2018-07-13 | Outpatient (CLI) | payer MEDICARE, BC ==
[2018-07-13 11:02] VITALS: BP 122/74
[2018-07-13 11:48] VITALS: BP 118/76
--- NOTE | 2018-07-13 15:29 | NUR ---
CALL RECIEVED FROM PT REQUESTING PRN IVP MEDS FOR MIGRAINE. RATED AT 5 ON PAIN SCALE. ARRIVED AMBULATORY WITH FRIEND. PORT A CATH ACCESSED WITH OUT DIFFICULTY. GOOD BLOOD RETURN AND EASY FLUSH. IVP COMPLETED AND TOLERAETED WELL. PORT FLUSHED AND DEACCESSED. DENIES NEEDS AT DISCHARGE.
== END ==
LOC: M.INFUS 10:24
DX: G43.909 Migraine, unspecified, not intractable, without status migrainosus (principal)

== ENCOUNTER → 2018-07-19 | Outpatient (CLI) | payer MEDICARE, BC ==
[2018-07-19 11:22] VITALS: BP 156/83
--- NOTE | 2018-07-19 12:00 | NUR ---
Pt arrived at 1120 and seated self in recliner. New orders from Dr. Walker for Lab were drawn vi port-a-cath that Lino had accessed. Standing order pain medications was given slow IV push. Pt had friend Mary with her to help draw her home after treatment.
[2018-07-19 12:24] LABS: HEMATOCRIT 36.9 % (37.0-47.0); HEMOGLOBIN 12.1 gm/dL (12.0-15.0); MCH 31.8 pg (26.0-34.0); MCV 96.4 fL (80.0-100.0); MPV 7.7 fl. (7.2-11.1); RBC 3.82 mil/uL (4.20-5.00); RDW-CV 14.2 % (10.5-14.5); WBC 10.3 thou/uL (4.0-11.0)
[2018-07-19 12:44] LABS: ALBUMIN 3.2 g/dL (3.4-5.0); CALCIUM 8.3 mg/dL (8.5-10.1); CREATININE 0.9 mg/dL (0.6-1.3); POTASSIUM 3.9 mmol/L (3.5-5.1); TOTAL BILIRUBIN 0.4 mg/dL (<0.1-1.0); TOTAL PROTEIN 6.5 g/dL (6.4-8.2)
--- NOTE | 2018-07-19 16:31 | NUR ---
CORRECTION: ALL MEDICATIONS GIVEN IV PUSH AND ADMINISTERED IN THE LEFT CHEST IMPLANTABLE PORT.
--- NOTE | 2018-07-19 16:40 | NUR ---
Lab work except vt D results were faxed to Dr. Walker.
== END ==
LOC: M.INFUS 10:56
PROVIDERS: Internal Medicine Rheumatology
DX: G43.909 Migraine, unspecified, not intractable, without status migrainosus (principal); E78.5 Hyperlipidemia, unspecified; E03.9 Hypothyroidism, unspecified; E55.9 Vitamin D deficiency, unspecified; Q07.00 Arnold-Chiari syndrome without spina bifida or hydrocephalus; G93.49 Other encephalopathy; Z79.899 Other long term (current) drug therapy

== ENCOUNTER → 2018-08-04 | Outpatient (CLI) | payer MEDICARE, BC ==
[2018-08-04 10:40] VITALS: BP 138/74
--- NOTE | 2018-08-04 10:55 | NUR ---
ARRIVED AMBUALTORY. MADE SELF COMFORTABLE IN RECLINER. PT HAS NEW ADDITIONAL WRITTEN ORDER FOR LAB DRAW FROM DR. MCMAHON. PORT A CATH ACCESSED WITH OUT DIFFICULTY. GOOD BRISK BLOOD RETURN NOTED AND FLUSHED WITH EASE. LAB DRAWN AND IVP MEDS DONE PER ORDERS. PORT FLUSHED AND DEACCESSED. BANDAID APPLIED. TOLERATED WELL. FRIEND HERE TO TRANSPORT PT HOME.
== END ==
LOC: M.INFUS 05:12 → M.RAD 05:12 → M.INFUS 09:30
DX: G43.909 Migraine, unspecified, not intractable, without status migrainosus (principal); E03.9 Hypothyroidism, unspecified; R05 Cough

== ENCOUNTER → 2018-08-12 | Outpatient (CLI) | payer MEDICARE, BC ==
[2018-08-12 11:25] VITALS: BP 151/76
== END ==
LOC: M.INFUS 11:13
DX: G43.909 Migraine, unspecified, not intractable, without status migrainosus (principal)

== ENCOUNTER → 2018-08-20 | Outpatient (CLI) | payer MEDICARE, BC ==
[2018-08-20 12:04] VITALS: BP 132/74
--- NOTE | 2018-08-20 13:59 | NUR ---
CALL RECIEVED FROM PT YESTERDAY REQUESTING TO COME IN FOR PRN IVP MEDS. CALL PLACED TO DR. MCMAHON'S OFFICE RELATED TO PT HAVING PRN IVP MEDS LESS THAN [address] MCMAHON'S OFFICE OK TO REPEAT IVP ON 08/20/18. PT ARRIVED AMBULATORY. MADE SELF COMFORTABLE. PORT ACCESSED GOOD BRISK BLOOD RETURN NOTED AND FLUSHED WITH EASE. IVP COMPLETED AND TOLERATED WELL. PORT FLUSHED AND DEACCESSED. DENEIS NEEDS AT DISCHARGE.
--- NOTE | 2018-09-03 14:10 | NUR ---
ALL MEDS ADMINISTERED 08/20/18 INCULDING BENADRYL AND TOERADOL WERE GIVEN VIA IV SLOW PUSH ROUTE.
== END ==
LOC: M.INFUS 05:04
DX: G43.909 Migraine, unspecified, not intractable, without status migrainosus (principal)

== ENCOUNTER → 2018-08-23 | Outpatient (CLI) | payer MEDICARE, BC ==
--- NOTE | 2018-08-23 10:53 | 2DMMODE ---
[place] [address] 2 D/M-MODE ECHOCARDIOGRAM Name: RAMON SAEZ Room: [facility]#: [id number] Admission: 08/23/18 Attend Phys: Elgiio Mejia MD Discharge: Date of : 67 Date of Service: 08/23/18 1052 Report #: [id number] THIS REPORT FOR: //name// APPROVED REPORT Study performed: 08/23/2018 09:06:25 EXAM: Comprehensive 2D, Doppler, and color-flow Echocardiogram Patient Location: Out-Patient BSA: 1.91 HR: 72 bpm BP: 110/70 mmHg Other Information Study Quality: Good Indications Aortic Valve Disease Hypertension/HDD 2D Dimensions IVSd: 8.80 (7-11mm) LVOT Diam: 20.06 (18-24mm) LVDd: 46.25 mm PWd: 11.54 (7-11mm) Ascending Ao: 27.67 (22-36mm) LVDs: 28.32 (25-40mm) Aortic Root: 26.06 mm Volumes Left Atrial Volume (Systole) LA ESV Index: 21.00 mL/m2 Aortic Valve AoV Peak Balaji.: 1.55 m/s AO Peak Gr.: 9.64 mmHg LVOT Max P.18 mmHg AO Mean Gr.: 4.98 mmHg LVOT Mean P.72 mmHg LVOT Max V: 0.89 m/s AO V2 VTI: 33.91 cm LVOT Mean V: 0.61 m/s SHARRI (VTI): 2.21 cm2 LVOT V1 VTI: 23.73 cm AI Bacon: 2.98 m/s2 AI PHT: 442.18 ms Mitral Valve E/A Ratio: 1.00 MV Decel. Time: 196.83 [place] [address] 2 D/M-MODE ECHOCARDIOGRAM Name: SAEZRAMON Room: [facility]#: [id number] Admission: 08/23/18 Attend Phys: Eligio Mejia MD Discharge: Date of : 67 Date of Service: 08/23/18 1052 Report #: [id number] MV E Max Balaji.: 0.75 m/s MV PHT: 57.08 ms MVA (PHT): 3.85 cm2 TDI E/Lateral E': 6.82 E/Medial E': 6.82 Medial E' Balaji.: 0.11 m/s Lateral E' Balaji.: 0.11 m/s Pulmonary Valve PV Peak Balaji.: 0.84 m/s PV Peak Gr.: 2.80 mmHg Tricuspid Valve RAP Estimate: 5.00 mmHg TR Peak Gr.: 15.75 mmHg RVSP: 20.75 mmHg PA Pressure: 20.75 mmHg Left Ventricle The left ventricle is normal size. There is global hypokinesis of the left ventricle. There is normal left ventricular wall thickness. Left ventricular systolic function is mildly decreased. LVEF is 40-45%. The left ventricular diastolic function is normal. Right Ventricle The right ventricle is normal size. The right ventricular systolic function is normal. Atria The left atrium size is normal. The right atrium size is normal. Aortic Valve The aortic valve is normal in structure. Mild aortic regurgitation. There is no aortic valvular stenosis. Mitral Valve The mitral valve is normal in structure. Mild mitral regurgitation. No evidence of mitral valve stenosis. Tricuspid Valve The tricuspid valve is normal in structure. Mild tricuspid regurgitation. Pulmonic Valve The pulmonary valve is normal in structure. There is no pulmonic [place] [address] 2 D/M-MODE ECHOCARDIOGRAM Name: RAMON SAEZ Room: [facility]#: [id number] Admission: 08/23/18 Attend Phys: Eligio Mejia MD Discharge: Date of : 67 Date of Service: 08/23/18 1052 Report #: [id number] Great Vessels The aortic root is normal in size. IVC is normal in size and collapses >50% with inspiration. Pericardium There is no pericardial effusion. <Conclusion> LVEF is 40-45%. Mild aortic regurgitation. Mild mitral regurgitation. <ELECTRONICALLY SIGNED> By: Eligio Mejia MD, [facility] 08/23/18 1052 51 51 Eligio Mejia MD, [facility] /INF
== END ==
LOC: M.CRD 08:34
DX: I08.3 Combined rheumatic disorders of mitral, aortic and tricuspid valves (principal); I10 Essential (primary) hypertension; Z88.1 Allergy status to other antibiotic agents; Z88.8 Allergy status to other drugs, medicaments and biological substances; Z88.0 Allergy status to penicillin; Z91.041 Radiographic dye allergy status

== ENCOUNTER → 2018-08-24 | Outpatient (CLI) | payer MEDICARE, BC ==
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
== END ==
LOC: M.PC 04:36
DX: R51 Headache (principal); M17.11 Unilateral primary osteoarthritis, right knee; M43.22 Fusion of spine, cervical region; M51.24 Other intervertebral disc displacement, thoracic region; E03.9 Hypothyroidism, unspecified; J45.909 Unspecified asthma, uncomplicated; R53.82 Chronic fatigue, unspecified; I95.9 Hypotension, unspecified; D50.0 Iron deficiency anemia secondary to blood loss (chronic); E66.01 Morbid (severe) obesity due to excess calories; D89.9 Disorder involving the immune mechanism, unspecified; Z87.798 Personal history of other (corrected) congenital malformations; Z68.37 Body mass index [BMI] 37.0-37.9, adult; Z86.79 Personal history of other diseases of the circulatory system

== ENCOUNTER → 2018-08-25 | Outpatient (CLI) | payer MEDICARE, BC ==
[2018-08-25 09:03] VITALS: BP 122/69
[2018-08-25 10:00] VITALS: BP 118/74
--- NOTE | 2018-08-25 12:42 | NUR ---
ARRIVED AMBUALTRY WITH WHEELED WALKER. MADE SELF COMFORTABLE IN RECLINER. PORT A CATH ACCESSED WITH OUT DIFFICULTY. GOOD BLOOD RETURN NOTED AND FLUSHED WITH EASE. MIGRAINE COCKTAIL COMPLETED PER STANDING ORDER. LINE FLUSHED AND DEACCESSED. TOLERATED WELL. PT REPORTS 2 FALLS THIS WEEK BOTH LOOSING CONCIOUS AND BEING TAKEN TO [facility] BY AMBULANCE. PT DEVONTE VERIFIED. PT NEEDED MEDICAL RECOEDS AND PLANNED TO WALK TO OTHER DEPARTMENT. VOLUNTEER CALLED AND PT ESCORTED TO MEDICAL RECORDS VIA WHEELCHAIR. WALKER REMAINED IN DEPARTMENT. PT BROUIGHT BACK BY SAME VOLUNTEER TO OBTAINE WALKER AND WAS THEN ESCORTED TO CAR VIA WHEELCHAIR. RIDE WAS WAITING TO DRIVE HER HOME AND STAY WITH PT UNTIL HOME.
== END ==
LOC: M.INFUS 04:39
DX: L50.9 Urticaria, unspecified (principal); G43.909 Migraine, unspecified, not intractable, without status migrainosus

== ENCOUNTER → 2018-09-01 | Outpatient (CLI) | payer MEDICARE, BC ==
[2018-09-01 08:50] VITALS: BP 94/52
--- NOTE | 2018-09-01 12:38 | NUR ---
ARRIVED AMBULATORY WITH WALKER. MOTHER AT CHAIRSIDE. PORT A CATH ACCESSED WITH OUT DIFFICULTY. GOOD BRISK BLOOD RETURN NOTED AND FLUSHED WITH EASE. PRN IVP MEDS COMPLETED PER STANDING ORDER. LINE FLUSHED AND DEACCESSED. ESCORTED TO CAR VIA W/C MOTHER DRIVING. PT NOTED TO BE DROWSEY.
== END ==
LOC: M.INFUS 05:33
DX: G43.909 Migraine, unspecified, not intractable, without status migrainosus (principal); L50.9 Urticaria, unspecified

== ENCOUNTER → 2018-09-08 | Outpatient (CLI) | payer MEDICARE, BC ==
[2018-09-08 11:54] VITALS: BP 132/74
--- NOTE | 2018-09-08 12:25 | NUR ---
CALL RECIEVED FROM PT REQUESTIONG PRN MIGRAINE COCKTAIL. PT ARRIVED TO INFUSION AMBULATORY WITH MOTHER. MADE SELF COMFORTABLE. PORT A CATH ACCESSED WITH OUT DIFFICULTY. GOOD BRISK BLOOD RETURN NOTED AND FLUSHED WITH EASE. ALL MEDS GIVEN LEFT PORT A CATH VIA IV PUSH ROUTE. PORT FLUSHED AND DEACCESSED. TOELRATED WELL. DENIES QUESTIONS OR NEEDS AT [facility]IC[facility]GE.
== END ==
LOC: M.INFUS 10:21
DX: G43.909 Migraine, unspecified, not intractable, without status migrainosus (principal); L50.9 Urticaria, unspecified

== ENCOUNTER → 2018-09-16 | Outpatient (CLI) | payer MEDICARE, BC ==
[2018-09-16 08:10] VITALS: BP 122/74
[2018-09-16 08:55] VITALS: BP 100/74
--- NOTE | 2018-09-16 09:42 | NUR ---
ARRIVED AMBULATORY WITH WALKER AND MOTHER. MADE SELF COMFORTABLE IN RECLINER. ALERT AND TALKATIVE WITH PLEASENT AFFECT. PORT ACCESSED WITH OUT DIFFICULTY. GOOD BRISK BLOOD RETURN NOTED AND FLUSHED WTIH EASE. IVP MEDS GIVEN SLOW IVP PER STANDING ORDER. PT THEN NOTED TO BE RESTING WITH EYES CLOSED. AROUSED TO NAME BUT MUMBLED SPEECH AND INCOMPLETE SENTENCES. MONITORED 30 MIN. ASSISTED TO WHEELCHAIR BY 2 RN AND ASSISTED TO CAR BY VOLUNTEER AND RN. MOTHER DRIVIGN HOME. FALL PRECAUTIONS REVIEWED. CALL PLACED AAND MESSAGE LEFT FOR DR. MCMAHON TO RETURN CALL RELATED TO PT STATE AFTER IVP MEDS GIVEN
--- NOTE | 2018-09-16 15:34 | NUR ---
CALL BACK RECIEVED FROM JEN AT DR. RODRIGUEZ OFFICE. REPORTED PT INCREASED FREQUENCY AND DECREASED LEVEL OF CONSCIOUS WITH VISIT. NEW FAXED ORDER RECIEVED LIMITING PT TO 2 VISITS PER MONTH 14 DAYS APART AND REMOVAL OF COMPAZINE.
== END ==
LOC: M.INFUS 04:50
DX: G43.909 Migraine, unspecified, not intractable, without status migrainosus (principal)

== ENCOUNTER → 2018-10-06 | Outpatient (CLI) | payer MEDICARE, BC | LOC: M.INFUS 00:39 | DX: G43.909 Migraine, unspecified, not intractable, without status migrainosus (principal) ==

== ENCOUNTER → 2018-10-19 | Outpatient (CLI) | payer MEDICARE, BC ==
--- NOTE | 2018-10-20 14:27 | PAINCON ---
[address] [address] PAIN MANAGEMENT CONSULTATION Name: RAMON SAEZ Room: [facility].[place].#: [id number] Admission: 10/19/18 Attend Phys: Lupis Collins MD Discharge: Date of : 67 Report #: [id number] THIS REPORT FOR: //name// CC: Muriel Collins DATE OF SERVICE: 10/19/2018 FOLLOWUP COMPLAINT: Here for medication renewal. HISTORY: The patient is a 53-year-old female who has been followed in the pain clinic. As you may recall, she suffers from chronic pain from Arnold-Chiari malformation. She still is having some problem with her memory. She is having some problems with her left knee as well. She states that she was still trying to work with the [facility] as a goal. She is having some left knee pain. She has a new brace for her left knee. She notes that the pain is improving. She feels that her knee is getting stronger. She continues with her current medical regimen. States that she has pain and discomfort with such activities as walking, sitting, standing, going from a sitting to a standing position, bending. Rates her pain as a 9/10 at this point. ALLERGIES: PLASTIC TAPE, PAXIL, SULFA, IODINE, PENICILLIN, ORANGE - FOOD COLOR. CURRENT MEDICATIONS: Tylenol 325 mg, vitamin C, Mili Hips 500 mg, Excedrin Migraine, Tums chewable, Celebrex 200 mg, Zyrtec 10 mg b.i.d., Benadryl 50 mg q. 6 hours, Cymbalta 60 mg b.i.d., vitamin D 50,000 units, Nexium 40 mg, folic acid 1 mg, Lasix 40 mg, hydrochlorothiazide 12.5 mg, methadone 5 mg b.i.d., Ativan 0.5 mg at bedtime, hydromorphone 2 mg one q. 12 hours p.r.n. - total of 45 tablets dispensed. PAIN CLINIC ASSESSMENT/PQRS: 1. Osteoarthritis: The patient has some osteoarthritic changes in her left knee. She also has a knee replacement. The patient has some arthritic pain involving her wrists. Has broken her wrist in the past. 2. The patient is not being treated for rheumatoid arthritis. 3. Height 5 feet 2 inches, weight 207 pounds, BMI 36.6. 4. Vital signs: Blood pressure 111/72, heart rate 70, respiratory rate 16, room air saturation 92%, temperature 98.3. 5. Pain intensity 9/10. 6. Fall history: The patient has not fallen line in the last 3 months. 7. Blood thinner: The patient is not on a blood thinning medication. 8. Hypertension: The patient is not being treated for hypertension. 9. Opioid greater than 6 weeks: The patient receives her medication from [facility], the pain clinic. 10. Risk assessment tool: [place] [address] PAIN MANAGEMENT CONSULTATION Name: SAEZRAMON Room: [facility]#: [id number] Admission: 10/19/18 Attend Phys: Lupis Collins MD Discharge: Date of : 67 Report #: [id number] 11. Functional assessment tool. 12. Recreational drug use: The patient denies use of recreational drugs. 13. Alcohol: The patient denies use of alcoholic beverages. 14. Tobacco: The patient denies use of tobacco. PHYSICAL EXAMINATION: GENERAL: The patient is a well-developed, well-nourished white female. Appears somewhat obese. She is alert and oriented x 3. Her affect is appropriate. Speech is slow. HEENT: Normocephalic, atraumatic Extraocular eye muscles intact. The patient does not have a C-collar on. NECK: Without adenopathy or JVD. HEART: Regular rate. S1, S2. ABDOMEN: Tender, protuberant. MUSCULOSKELETAL: Without significant scoliosis, kyphosis or lordosis. The patient has some difficulty with gait. Has a brace on her knee. Continues to feel that her vision is deteriorating. Has some problem with balance. More difficulty with swallowing liquids. ASSESSMENT: 1. Chronic headaches. 2. History of Arnold-Chiari syndrome. 3. Possible lupus. 4. Anterior cervical fusion C5-C6. 5. History of aortic insufficiency. 6. Hypothyroidism. 7. Hypotension. 8. Asthma. 9. Chronic anemia. 10. Morbid obesity. 11. Osteoarthritis changes of the left knee. 12. Chronic fatigue syndrome with positive Eve-Pathak titer in the past. 13. Unidentified autoimmune disorder. 14. Status post T3, T4 and T5 central disk protrusions. RECOMMENDATIONS: We discussed treatment options with the patient. At this juncture, we will continue with her medications. The patient has a complex problem. We will continue with her complex medical management using opioid medications of Dilaudid. Hopefully, the patient will continue to improve. Hopefully, there will be some changes and options for her at [facility] to help with her condition. We would like to thank you for letting us participate in her care. We will continue with her medications. A script for her medication has been written. She will follow up in the future as needed. We would like to [address] [address] PAIN MANAGEMENT CONSULTATION Name: RAMON SAEZ Room: [facility] YAIMA Mohr#: [id number] Admission: 10/19/18 Attend Phys: Lupis Collins MD Discharge: Date of : 67 Report #: [id number] thank you for letting us participate in her care. Hope she continues to improve. <ELECTRONICALLY SIGNED> By: Lupis Collins MD 10/20/18 1427 [id number]. Freeman Collins MD /PMT
== END ==
LOC: M.PC 05:09
DX: M43.22 Fusion of spine, cervical region (principal); G89.29 Other chronic pain; M51.24 Other intervertebral disc displacement, thoracic region; M17.12 Unilateral primary osteoarthritis, left knee; R51 Headache; E03.9 Hypothyroidism, unspecified; J45.909 Unspecified asthma, uncomplicated; I95.9 Hypotension, unspecified; E66.01 Morbid (severe) obesity due to excess calories; R53.83 Other fatigue; D89.89 Other specified disorders involving the immune mechanism, not elsewhere classified; Z86.79 Personal history of other diseases of the circulatory system; Z79.899 Other long term (current) drug therapy; Z68.36 Body mass index [BMI] 36.0-36.9, adult

== ENCOUNTER → 2018-10-20 | Outpatient (CLI) | payer MEDICARE, BC ==
[2018-10-20 10:05] VITALS: BP 132/78
--- NOTE | 2018-10-20 10:41 | NUR ---
ARRIVED AMBULATORY. NO WALKER OR ASSISTED DEVICE. FRIEND AT CHAIRSIDE. PORT A CATH ACCESSED WITH OUT DIFFICULTY. GOOD BRISK BLOOD RETURN NOTED AND FLUSHED WITH EASE. ALL MEDS GIVEN PER STANDING ORDER VIA IV PUSH LEFT CHEST PORT A CATH. PORT FLUSHED AT END AND DEACCESSED. TOLERATED WELL. MONITORED AND DISCHARGED HOME AMBULATORY WITH FRIEND. DENEIS QUESTIONS OR NEEDS.
== END ==
LOC: M.INFUS 08:18
DX: G43.909 Migraine, unspecified, not intractable, without status migrainosus (principal)

== ENCOUNTER → 2018-11-03 | Outpatient (CLI) | payer MEDICARE, BC ==
[2018-11-03 09:10] VITALS: BP 132/74
[2018-11-03 10:30] VITALS: BP 122/70
--- NOTE | 2018-11-03 11:17 | NUR ---
ARRIVED AMBULATORY. MADE SELF COMFORTABLE IN RECLINER. PORT A CATH ACCESSED WITH OUT DIFFICULTY. GOOD BRISK BLOOD RETURN NOTED AND FLUSHED WITH EASE. ALL STANDING ORDER MEDS ADMINISTED IVP THRU LEFT CHEST PORT A CATH. PORT THEN FLUSHED AND DEACCESSED. MONITORED 1+ HOUR AND DISCHARGED AMBULATORY TO HOME WITH SISTER IN LAW ELIAN. DENIES QUESTIONS OR NEEDS AT DISCHARGE.
== END ==
LOC: M.INFUS 05:28
DX: G43.909 Migraine, unspecified, not intractable, without status migrainosus (principal)

== ENCOUNTER → 2018-11-17 | Outpatient (CLI) | payer MEDICARE, BC ==
[2018-11-17 09:05] VITALS: BP 108/66
[2018-11-17 09:50] VITALS: BP 110/65
--- NOTE | 2018-11-17 10:20 | NUR ---
ARRIVED AMBULATORY, MARTHA SELF COMFORTABLE. PORT A CATH ACCESSED WITH OUT DIFFICULTY. GOOD BRISK BLOOD RETURN NOTED AND FLUSHED WITH EASE. ALL MEDS GIVEN IVP THRU PORT A CATH LEFT CHEST. MONITORED 20 MIN AND DISCHARGE HOME WITH RYAN. CARRIE NEEDS AT DISCHARGE.
== END ==
LOC: M.INFUS 05:17
DX: G43.909 Migraine, unspecified, not intractable, without status migrainosus (principal)

== ENCOUNTER → 2018-12-08 | Outpatient (CLI) | payer MEDICARE, BC ==
[2018-12-08 09:05] VITALS: BP 132/77
[2018-12-08 10:05] VITALS: BP 144/75
--- NOTE | 2018-12-08 10:16 | NUR ---
ARRIVED AMBULATORY. MADE SELF COMFORTABLE IN RECLINER. PORT A CATH ACCESSED WITH OUT DIFFICULTY. GOOD BRISK BLOOD RETURN NOTED AND FLUSHED WITH EASE. ALL MEDICATION ADMINISTERED IV PUSH THRU LEFT CHEST PORT A CATH. PORT FLUSHED AND DEACCESSED. TOLERATED WELL. DISCHARGED TO HOME WITH SISTER IN LAW. DENIES QUEASTION OR NEEDS.
== END ==
LOC: M.INFUS 04:56
DX: G43.909 Migraine, unspecified, not intractable, without status migrainosus (principal)

== ENCOUNTER → 2018-12-14 | Outpatient (CLI) | payer MEDICARE, BC ==
--- NOTE | ~2018-12-14 | PAINCON ---
[address] [address] PAIN MANAGEMENT CONSULTATION Name: RAMON SAEZ Room: [facility] Yessy.#: [id number] Admission: 12/14/18 Attend Phys: Lupis Collins MD Discharge: Date of : 67 Report #: [id number] THIS REPORT FOR: //name// CC: Dasha Collins DATE OF SERVICE: 12/14/2018 CHIEF COMPLAINT: Here for medication renewal. HISTORY: The patient is a 53-year-old female who has been followed in the Pain Clinic. As you recall, she has a complicated history. She suffers from chronic pain associated with Arnold-Chiari malformation. She has been having some pain and discomfort in her head. Also, notes some pain and discomfort in her left knee. She is scheduled to see a neurosurgeon in the next few months. She has been referred to [place]. She finds that her medications are helpful. Her eyesight continues to be problematic. Has some problem with pain behind her ears. States that this is part of the Arnold-Chiari complications. She has returned today with the hopes of renewing her medications. Things which exacerbate her discomfort are activities, changes in temperature, walking, sitting, standing, climbing stairs, going from a sitting to standing, lifting and bending. She has taken her medications as prescribed. ALLERGIES: PLASTIC TAPE, PAXIL, SULFA, IODINE, PENICILLIN, ORANGE -- FOOD COLOR. CURRENT MEDICATIONS: Tylenol 325 mg, vitamin C, barbara hips 500 mg, Excedrin Migraine, Tums chewable, Celebrex 200 mg, Zyrtec 10 mg b.i.d., Benadryl 50 mg q. 6 hours, Cymbalta 60 mg, vitamin D 50,000 units, Nexium 40 mg, folic acid 1 mg, Lasix 40 mg, hydrochlorothiazide 12.5 mg, methadone 5 mg b.i.d., Ativan 0.5 mg at bedtime, hydromorphone 2 mg every 12 hours a total of 45 tablets dispensed per month. PAIN CLINIC ASSESSMENT/PQRS: 1. The patient has some osteoarthritic changes in her knees. She also has had knee replacement. Has some arthritic pain involving her wrist. She has broken her wrist in the past. The patient is not being treated for rheumatoid arthritis. 2. Height 5 feet 2 inches, weight 202 pounds, BMI is 37.0. 3. Vital Signs: Blood pressure 100/67, heart rate 65, respiratory rate 16, room air saturation 100%, and temperature 97.5. 4. Pain intensity, 10 5. Fall history: The patient has not fallen in the last 3 months. 6. Blood thinner. The patient is not on a blood thinning medication. 7. Hypertension. The patient is [place] [address] PAIN MANAGEMENT CONSULTATION Name: RAMON SAEZ [id number] Admission: 12/14/18 Attend Phys: Lupis Collins MD Discharge: Date of : 67 Report #: [id number] 8. Opioids greater than 6 weeks. The [facility]. 9. Risk assessment tool, low for opioid use. 10. Functional assessment tool. 11. Recreational drug use. The patient denies. 12. Alcohol: The patient denies use of alcoholic beverages. 13. Tobacco: The patient denies use of tobacco. PHYSICAL EXAMINATION: GENERAL: The patient is a well-developed, well-nourished white female. Appears her stated age. She is alert and oriented. She is accompanied by an associate. Her speech is slow as usual, HEENT: Normocephalic, atraumatic. Extraocular eye muscles intact. Sclerae nonicteric. Mucous membranes are moist. NECK: Without adenopathy or JVD. HEART: Regular rate. S1, S2. ABDOMEN: Nontender, protuberant. MUSCULOSKELETAL: Without significant scoliosis, kyphosis or lordosis. The patient has somewhat difficulty with her gait. Has a brace on her knee. Continues to feel her vision is deteriorating. Has some problem with her balance. Has difficulty swallowing liquids. Notes pain behind her ears. ASSESSMENT: 1. Chronic headaches. 2. History of Arnold-Chiari syndrome. 3. Possible lupus. 4. Anterior cervical fusion C5/C6. 5. History of aortic insufficiency. 6. Hypothyroidism. 7. Hypertension. 8. Asthma. 9. Chronic anemia. 10. Morbid obesity. 11. Osteoarthritic changes in the knees. 12. Chronic fatigue syndrome with positive Eve-Pathak titer in the past. 13. Unidentified autoimmune disorder. 14. Status post T3, T4, and T5 central disk protrusions. RECOMMENDATIONS: We discussed treatment options with the patient. Risks and benefits of opioid medications were again reviewed restated. They include possibility of development of tolerance as well as the development of addiction. The patient is showing no signs of infection. She is taking her medication as prescribed. Keeps them in a guarded area. Finds that they are beneficial and enable her to engage in activities, she would not be able to without their use. Keeps her medications in a guarded area. The patient has hopes of going to the [facility] for further evaluation. We will renew her medications. [facility] script [facility] [address] [place] [address] PAIN MANAGEMENT CONSULTATION Name: RAMON SAEZ Room: [facility]#: [id number] Admission: 12/14/18 Attend Phys: Lupis Collins MD Discharge: Date of : 67 Report #: [id number] for her medications of hydromorphone, 2 tablets 1 p.o. q. 12 hours p.r.n., total 45 tablets as well as methadone 5 mg [id number]-half tablets a.m. and 1 tablet at bedtime, total of 60 tablets and Ativan and lorazepam 0.5 mg 1 p.o. p.r.n. anxiety. The patient has also been provided with Celebrex 200 mg and Cymbalta 60 mg. We would like to thank you for letting us participate in her care. We hope she continues to improve. By: [id number]. Freeman Collins MD /nt
== END ==
LOC: M.PC 04:52
DX: Z76.0 Encounter for issue of repeat prescription (principal); G89.29 Other chronic pain; E03.9 Hypothyroidism, unspecified; I10 Essential (primary) hypertension; E66.9 Obesity, unspecified; R53.82 Chronic fatigue, unspecified; Z79.899 Other long term (current) drug therapy; Z88.2 Allergy status to sulfonamides; Z88.8 Allergy status to other drugs, medicaments and biological substances; Z88.0 Allergy status to penicillin

== ENCOUNTER → 2018-12-16 | Outpatient (CLI) | payer MEDICARE, BC ==
[2018-12-16 13:00] VITALS: BP 128/78
[2018-12-16 13:40] VITALS: BP 120/70
--- NOTE | 2018-12-16 13:50 | NUR ---
ARRIVED AMBULATORY. MADE SELF COMFORTABLE. PORT A CATH ACCESSED WTIH OUT DIFFICULTY. GOOD BRISK BLOOD RETURN AND EASY FLUSH. ALL MEDS GIVEN IVP THRU LEFT CHEST PORT A CATH. PORT FLUSHED AND DEACCESSED. PT HAS A RIDE HOME WITH FRIEND
== END ==
LOC: M.INFUS 08:50
DX: G43.909 Migraine, unspecified, not intractable, without status migrainosus (principal)

== ENCOUNTER → 2018-12-22 | Outpatient (CLI) | payer MEDICARE, BC ==
[2018-12-22 10:40] VITALS: BP 139/79
--- NOTE | 2018-12-22 14:43 | NUR ---
ARRIVED AMBULATORY. MADE SELF COMFORTABLE IN RECLINER. PORT A CATH ACCESSED WITH OUT DIFFICULTY. GOOD BRISK BLOOD RETURN NOTED AND FLUSHED WITH EASE. PER STANDING ORDER ALL MEDS GIVEN IVP THRU LEFT CHEST PORT A CATH. STANDING ORDER FOR EVERY 14 DAYS. ONE TIME ORDER RECIEVED LAST WEEK FOR ADDITIONAL VISIT. PER DR. MCMAHON ATFTER 1 TIME ORDER OK TO RESUME REGULAR SCHEDULE WITH PT HAVING SCHEDULED FLIGHT OUT OF TOWN TOMORROW AND RETURNING IN 2 WEEKS.
== END ==
LOC: M.INFUS 05:18
DX: G43.909 Migraine, unspecified, not intractable, without status migrainosus (principal)

== ENCOUNTER → 2019-01-05 | Outpatient (CLI) | payer MEDICARE, BC ==
[2019-01-05 09:10] VITALS: BP 112/82
--- NOTE | 2019-01-05 09:57 | NUR ---
ARRIVED AMBULATORY. MADE SELF COMFORTABLE IN RECLINER. PORT A CATH ACCESSED WITH OUT DIFFICULTY. GOOD BRISK BLOOD RETURN AND EASY FLUSH NOTED. PHARMACY PYXIS NOT COMMUNICATION [facility] AND DOWN TIME CHARTING DONE. ALL MEDICATION GIVEN IVP THRU LEFT CHEST PORT A CATH TORADOL 30mg IVP LEFT CHEST PORT A CATH AT 0927 ZOFRAN 4mg IVP LEFT CHEST PORT A CATH AT 0930 BENADRYL 100MG IVP LEFT CHEST PORT A CATH AT 0933 SOLUMEDROL 125mg IVP LEFT CHEST PORT A CATH AT 0936 HEPARIN FLUSH 1:100 5ML IVP LEFT CHEST PORT A CATH AT 0938 ALL MEDICATIONS TOLERATED WELL. DENIES QUESTIONS OR NEEDS AT DISCHARGE.
== END ==
LOC: M.INFUS 08:56
DX: G43.909 Migraine, unspecified, not intractable, without status migrainosus (principal)

== ENCOUNTER → 2019-01-19 | Outpatient (CLI) | payer MEDICARE, BC ==
[~2019-01-19] MED LIST changes: +Ativan 0.5 MG PO
[2019-01-19 09:14] VITALS: BP 130/78
--- NOTE | 2019-01-19 10:24 | NUR ---
ARRIVED AMBULATORY. MADE SELF COMFORTABLE IN RECLINER. PORT A CATH ACCESSED WITH EASE. GOOD BRISK BLOOD RETURN NOTED ADN FLUSHED WITH EASE. ALL MEDICATIONS GIVEN IVP THRU LEFT CHEST PORT A CATH. PORT FLUSHED AND DEACCESSED. TOLERATED WELL. MONITORED 30 MIN PRIOR TO DISCHARGE.
== END ==
LOC: M.INFUS 04:49
DX: G43.909 Migraine, unspecified, not intractable, without status migrainosus (principal)

== ENCOUNTER → 2019-01-28 | Outpatient (CLI) | payer MEDICARE, BC | LOC: M.RAD 11:23 | DX: R05 Cough (principal); R07.89 Other chest pain ==

== ENCOUNTER → 2019-02-02 | Outpatient (CLI) | payer MEDICARE, BC ==
[2019-02-02 09:15] VITALS: BP 108/62
[2019-02-02 09:45] VITALS: BP 110/57
--- NOTE | 2019-02-02 10:02 | NUR ---
ARRIVED AMBULATORY WITH ELIAN, SISTER IN LAW. MADE SELF COMFORTABLE. PORT A CATH ACCESSED WITHOUT DIFFICULTY. GOOD BRISK BLOOD RETURN NOTED AND FLUSHED WITH EASE. IVP MEDS COMPLETED AND ORDERED AND TOLERATED WELL. DISCHARGED TO HOME WITH ELIAN. DENIES NEEDS
== END ==
LOC: M.INFUS 01-20 09:00
DX: G43.909 Migraine, unspecified, not intractable, without status migrainosus (principal)

== ENCOUNTER → 2019-02-08 | Outpatient (CLI) | payer MEDICARE, BC ==
--- NOTE | 2019-02-09 09:09 | PAINCON ---
[facility] [address] [place] [address] PAIN MANAGEMENT CONSULTATION Name: RAMON SAEZ [facility] [id number] Admission: 02/08/19 Attend Phys: Lupis Collins MD Discharge: Date of : 67 Report #: [id number] THIS REPORT FOR: //name// CC: Dasha Collins DATE OF SERVICE: 02/08/2019 CHIEF COMPLAINT: Here for medication renewal. HISTORY: The patient is a 53-year-old female who has been followed in the pain clinic because of chronic pain. As you recall, she suffers from chronic pain. She has a complicated history. She suffers from Arnold-Chiari malformation because of this she continues to have chronic head pain. She has noticed that her symptomatology continues to worsen. Has difficulty with pain as well as difficulty with driving. She is no longer driving her car. Has noted some worsening of her vision. Her eyesight continues to be less acute. Notes that she continues to have some problems with generalized activities of daily living such as walking, sitting, standing, climbing stairs, lifting and bending. States that she has fallen and when she falls at this point, she appears to be falling backwards. She is having difficulty with her memory. She is going to be tested for possibility of Alzheimer's. She has returned today for renewal of her medications. ALLERGIES: PLASTIC TAPE, PAXIL, SULFA, IODINE, PENICILLIN, orange FOOD COLOR. CURRENT MEDICATIONS: Tylenol 325 mg, vitamin C, barbara hips 500 mg, Excedrin Migraine, Tums chewable, Celebrex 200 mg, Zyrtec 10 mg b.i.d., Benadryl 50 mg q.6 hours, Cymbalta 60 mg, vitamin D 50,000 units, Nexium 40 mg, folic acid, Lasix 40 mg, hydrochlorothiazide 12.5 mg, methadone 5 mg b.i.d., Ativan 0.5 mg, hydromorphone 2 mg q. 12 hours p.r.n., total of 45 tablets dispensed per month. PAIN CLINIC ASSESSMENT AND PQRS: 1. The patient has some osteoarthritic changes in her knees. She also has had knee replacements. She has some arthritic changes in her wrist. She has broken her wrist in the past. The patient is not being treated for rheumatoid arthritis. 2. Height 5 feet 2 inches, weight 203 pounds, BMI is 37.2. 3. Vital Signs: Blood pressure 103/63, heart rate 78, respiratory rate 16, room air saturation 93%, temperature 97.6. 4. Pain intensity 9/10. 5. Fall history: The patient has fallen about twice a week. 6. We have advised the patient to get a bicycle helmet for constant falls. 7. Blood thinner. The patient is not on a blood thinning medication. 8. Hypertension. The patient is not being treated for hypertension. 9. Opioids greater than 6 weeks. [place] [address] PAIN MANAGEMENT CONSULTATION Name: SAEZRAMON Room: [facility]#: [id number] Admission: 02/08/19 Attend Phys: Lupis Collins MD Discharge: Date of : 67 Report #: [id number] source, pain clinic. 10. Risk assessment tool, low for opioid use. 11. Functional assessment tool. 12. Recreational drug use. The patient denies use of recreational drugs. 13. Alcohol: The patient denies use of alcoholic beverages. 14. Tobacco: The patient denies use of tobacco. PHYSICAL EXAMINATION: GENERAL: The patient is a well-developed, well-nourished white female. Appears her stated age. She is alert and oriented x 3. Her affect is appropriate. She is somewhat less loquacious today. Her speech is slow. This is usual. HEENT: Normocephalic. Extraocular eye muscles intact. The patient does have decreased visual acuity. Mucous membranes are moist. NECK: Without adenopathy or JVD. HEART: Regular rate. S1, S2. ABDOMEN: Nontender, protuberant. MUSCULOSKELETAL: Without significant scoliosis, kyphosis or lordosis. The patient has some increased difficulty with her gait. Has used a brace on her knee. Continues to find that her vision is deteriorating. Has difficulty with her balance has been falling. Has difficulty swallowing at this point. States that she is using a #5. States that she finds liquids difficult to swallow and thicker foods are less problematic. IMPRESSION: 1. Chronic headaches. 2. History of Arnold-Chiari syndrome. 3. Possible lupus. 4. Anterior cervical fusion, C5-C6. 5. History of aortic insufficiency. 6. Hypothyroidism. 7. Hypertension. 8. Asthma. 9. Chronic anemia. 10. Morbid obesity. 11. Osteoarthritis changes in her knee. 12. Chronic fatigue syndrome and positive Eve-Pathak titer in the past. Unidentified autoimmune disorder. 13. Status post T3, T4 and T3/T4/T5 central disk protrusions. RECOMMENDATIONS: We discussed treatment options with the patient. At this juncture, we will continue with her medications. She does have quite a difficult situation. She is unable to drive at this point. We explained encouraged the patient to get a bicycle helmet. Sometimes if she is feeling somewhat steady to wear the bicycle helmet might be problematic. We especially encouraged the patient to use in the bathroom. There were a lot of hard surfaces. Fall in this area could be quite problematic a devastating. She [facility] [address] [place] [address] PAIN MANAGEMENT CONSULTATION Name: RAMON SAEZ Room: [facility]#: [id number] Admission: 02/08/19 Attend Phys: Lupis Collins MD Discharge: Date of : 67 Report #: [id number] states that she would continue to give that a consideration. We would like to thank you for letting us participate in her care. A script for her medications of Ativan 0.5 mg 1 p.o. at bedtime, Celebrex 200 mg daily, Cymbalta 60 120 mg 1 p.o. b.i.d. has been written. The patient will also continue with the methadone 5 mg 1 p.o. b.i.d., total of 60 tablets have been written. She will call us if she has any concerns. We would like to thank you for letting us participate in her care. A script for hydromorphone/Dilaudid 2 mg p.o. q.12 hours p.r.n. for pain, has also been provided. <ELECTRONICALLY SIGNED> By: Lupis Collins MD 02/09/19 0909 [id number]. MD LOTTIE Biswas
== END ==
LOC: M.PC 05:24
DX: R51 Headache (principal); Q07.00 Arnold-Chiari syndrome without spina bifida or hydrocephalus; M31.9 Necrotizing vasculopathy, unspecified; M43.22 Fusion of spine, cervical region; I35.1 Nonrheumatic aortic (valve) insufficiency; E03.9 Hypothyroidism, unspecified; I10 Essential (primary) hypertension; J45.909 Unspecified asthma, uncomplicated; D64.9 Anemia, unspecified; E66.01 Morbid (severe) obesity due to excess calories; M17.0 Bilateral primary osteoarthritis of knee

== ENCOUNTER → 2019-02-16 | Outpatient (CLI) | payer MEDICARE, BC ==
[2019-02-16 08:00] VITALS: BP 147/74
--- NOTE | 2019-02-16 09:05 | NUR ---
ARRIVED AMBULATORY. MADE SELF COMFORTABLE IN RECLINER. PORT A CATH ACCESSED WITH OUT DIFFICULTY. GOOD BRISK BLOOD RETURN NOTED AND FLUSHED WITH EASE. IVP MEDS COMPLETED PER ORDER. ALL MEDS GIVEN IVP THRU LEFT CHEST PORT A CATH. PORT FLUSHED AND DEACCESSED. TOLERATED WELL.
== END ==
LOC: M.INFUS 05:24
DX: G43.909 Migraine, unspecified, not intractable, without status migrainosus (principal)

== ENCOUNTER → 2019-03-02 | Outpatient (CLI) | payer MEDICARE, BC ==
[2019-03-02 09:02] VITALS: BP 112/61
[2019-03-02 09:45] VITALS: BP 110/62
--- NOTE | 2019-03-02 09:54 | NUR ---
arrived ambulatory, made self comfortable in recliner. port a cath accessed with out difficulty. good brisk blood return noted flushed with ease. all meds given iv push thru left chest port a cath. tolerated well. monitring completed. denies questions or needs at discharge.
== END ==
LOC: M.INFUS 05:19
DX: G43.909 Migraine, unspecified, not intractable, without status migrainosus (principal)

== ENCOUNTER → 2019-03-16 | Outpatient (CLI) | payer MEDICARE, BC ==
[~2019-03-16] MED LIST changes: +CARVEDILOL3.125 MG PO
[2019-03-16 09:20] VITALS: BP 148/96
[2019-03-16 10:09] VITALS: BP 148/90
== END ==
LOC: M.INFUS 03-09 09:00
DX: G43.909 Migraine, unspecified, not intractable, without status migrainosus (principal)

== ENCOUNTER → 2019-04-05 | Outpatient (CLI) | payer MEDICARE, BC ==
[~2019-04-05] MED LIST changes: +ADVAIR 500-501 EACH INH; -ADVAIR DISKU INH; +AIMOVIG AU140 MG/1 M SUBQ; +LINZESS145 MCG PO; +[UNRECOGNIZED DRUG - REMARK]
--- NOTE | 2019-04-19 14:48 | PAINCON ---
[address] [address] PAIN MANAGEMENT CONSULTATION Name: RAMON SAEZ [facility] [id number] Admission: 04/05/19 Attend Phys: Lupis Collins MD Discharge: Date of : 67 Report #: [id number] THIS REPORT FOR: //name// CC: Dasha Collins DATE OF SERVICE: 04/05/2019 PRIMARY CARE PHYSICIAN: Dasha Hansen MD CHIEF COMPLAINT: Chronic headaches. HISTORY: The patient is a 53-year-old female who has been followed in the pain clinic. She has somewhat of a tragic history. She continues to suffer from chronic headaches. She has Arnold-Chiari malformation. She has been followed by a specialist in this field. States that her condition probably would continue to worsen as time goes on. She is no longer driving her car. Notes that her vision continues to be more problematic. She has difficulty with activities of daily living such as climbing stairs, standing, sitting, walking and other activities which can exacerbate her discomfort. She has noted some swelling in her left neck. There is some soreness in her throat. She is not sure if she may have been catching a cold. Rates her pain today as a 9/10. She has returned today for renew of her medications. States that she is keeping her medications in a guarded area and that they continue to be helpful. She has not noticed any untoward effects from the medications. She is able to think reasonably clearly. ALLERGIES: PLASTIC TAPE, PAXIL, SULFA, IODINE, PENICILLIN, ORANGE FOOD COLOR. MEDICATIONS: Tylenol 325 mg, vitamin C, Mili Hips 500 mg, Excedrin Migraine, Tums chewable, Celebrex 200 mg, Zyrtec 10 mg b.i.d., Bentyl 50 mg q.6 hours, Cymbalta 60 mg, vitamin D 50,000 units, Nexium 40 mg, folic acid, Lasix 40 mg, hydrochlorothiazide 12.5 mg, methadone 5 mg b.i.d., Ativan 0.5 mg and hydromorphone 2 mg q.12 hours p.r.n., total of 45 tablets per month. PAIN CLINIC ASSESSMENT AND PQRS: 1. The patient is not being treated for rheumatoid arthritis. She has had knee replacements. Has some arthritic changes in her wrist. Has arthritic changes in her knees. 2. Height 5 feet 2 inches, weight 208 pounds, BMI is 38.1. 3. Vital signs: Blood pressure 110/71, heart rate 76, respiratory rate 16, room air saturation is 95%, temperature 98.3. Pain score 8/10. 4. Fall history: The patient has not fallen since we saw her last. 5. Blood thinner: The patient is not on a blood thinning medication. 6. Hypertension. The patient is being treated for hypertension, 30% [place] [address] PAIN MANAGEMENT CONSULTATION Name: RAMON SAEZ [facility] [id number] Admission: 04/05/19 Attend Phys: Lupis Collins MD Discharge: Date of : 67 Report #: [id number] fraction of her heart. 7. Opioids greater than 6 weeks. The [facility]. 8. Risk assessment tool, low for opioid use. 9. Functional assessment tool. 10. Recreational drug use: The patient denies. 11. Tobacco: The patient denies. 12. Alcohol: Rare use of alcoholic beverages. PHYSICAL EXAMINATION: GENERAL: The patient is a well-developed, well-nourished white female. Appears her stated age. She is alert and oriented x 3. Her affect is appropriate. Speech is fluent. She is unaccompanied. HEENT: Normocephalic. Extraocular muscles are intact. The patient does complain of some decreased visual acuity. Mucous membranes are moist. NECK: Without adenopathy or JVD. HEART: Regular rate. ABDOMEN: Nontender, protuberant. MUSCULOSKELETAL: Without significant scoliosis, kyphosis or lordosis. The patient does have some difficulty with her gait. Has worn a brace on her knee because of problems with her knee. Has some problems with balance. Has had some difficulty with swallowing. The patient finds some liquids difficult to swallow and thicker foods sometimes are less problematic. IMPRESSION: 1. Chronic headaches. 2. History of Arnold-Chiari syndrome. 3. Possible lupus. 4. Anterior cervical fusion, C5-C6. 5. History of aortic insufficiency. 6. Hypothyroidism. 7. Hypertension. 8. Asthma. 9. Chronic anemia. 10. Morbid obesity. 11. Osteoarthritis with changes in the knee. 12. Chronic fatigue syndrome and positive for Eve-Pathak titer in the past. 13. Status post T3, T4, T5 central disk protrusions. RECOMMENDATIONS: We discussed treatment options with the patient. At this juncture, we will continue with her current medical regimen. She feels that the medication is helpful. She does find herself in a peculiar and difficult position. Has some problems with her vision. Has decreasing muscle strength in certain areas. Does have chronic headache pain. We will continue with her current medical regimen. A script for her medications have been rewritten. She will continue with the Cymbalta 120 mg b.i.d. She will also continue with [facility] [address] [place] [address] PAIN MANAGEMENT CONSULTATION Name: RAMON SAEZ Room: [facility]#: [id number] Admission: 04/05/19 Attend Phys: Lupis Collins MD Discharge: Date of : 67 Report #: [id number] methadone 5 mg 1 p.o. b.i.d., 60 tablets have been written. She will use the Celebrex medication 200 mg daily. Should she notes some GI problems because of the nonsteroidal anti-inflammatory properties of Celebrex. She will stop this medication. She will call us if she has any concerns. She will also continue with hydrocodone/Dilaudid 2 mg 1 p.o. b.i.d. We would like to thank you for letting us participate in her care. We hope she continues to improve. <ELECTRONICALLY SIGNED> By: Lupis Collins MD 04/19/19 1448 [id number]. Freeman Collins MD /nt
== END ==
LOC: M.PC 04:57
DX: G89.29 Other chronic pain (principal); R51 Headache; E03.9 Hypothyroidism, unspecified; I10 Essential (primary) hypertension; J45.909 Unspecified asthma, uncomplicated; D64.9 Anemia, unspecified; E66.01 Morbid (severe) obesity due to excess calories; Z88.2 Allergy status to sulfonamides; Z88.0 Allergy status to penicillin; Z88.8 Allergy status to other drugs, medicaments and biological substances; Z79.899 Other long term (current) drug therapy; Z79.891 Long term (current) use of opiate analgesic; Z96.653 Presence of artificial knee joint, bilateral

== ENCOUNTER → 2019-04-06 | Outpatient (CLI) | payer MEDICARE, BC ==
[2019-04-06 08:55] VITALS: BP 118/69
[2019-04-06 09:19] VITALS: BP 115/74
--- NOTE | 2019-04-06 09:20 | NUR ---
ARRIVED AMBULATORY. MADE SLEF COMFORTABLE. PORT A CATH ACCESSED WITH OUT DIFFICULTY. GOOD BRISK BLOOD RETURN NOTED AND FLUSHED WITH EASE. ALL MEDS GIVEN IVP THRU LEFT CHEST PORT A CATH. TOLERATED WELL. NEICE HERE TO ESCORT AND DRIVE PT HOME AT DISCHARGE. DENEIS QUESTIONS OR NEEDS AT DISCHARGE.
== END ==
LOC: M.INFUS 05:29
DX: L50.9 Urticaria, unspecified (principal)

== ENCOUNTER → 2019-05-04 | Outpatient (CLI) | payer MEDICARE, BC ==
[2019-05-04 09:40] VITALS: BP 131/81
--- NOTE | 2019-05-04 10:27 | NUR ---
ARRIVED AMBULATORY. MADE SELF COMFORTABLE IN RECLINER. PORT A CATH ACCESSED WITH OUT DIFFICULTY. GOOD BRISK BLOOD RETURN NOTED AND FLUSHED WITH EASE. IVP MEDS GIVEN AND TOLERATED WELL. PORT FLUSHED AND DEACCESSED. DENIES QUESTIONS OR NEEDS AT DISCHARGE.
== END ==
LOC: M.INFUS 09:14
DX: L50.9 Urticaria, unspecified (principal); I42.9 Cardiomyopathy, unspecified

== ENCOUNTER → 2019-05-18 | Outpatient (CLI) | payer MEDICARE, BC ==
[2019-05-18 08:55] VITALS: BP 118/73
[2019-05-18 09:50] VITALS: BP 125/74
== END ==
LOC: M.INFUS 04:34
DX: G43.909 Migraine, unspecified, not intractable, without status migrainosus (principal)

== ENCOUNTER → 2019-05-31 | Outpatient (CLI) | payer MEDICARE, BC ==
--- NOTE | 2019-06-03 08:24 | PAINCON ---
[address] [address] PAIN MANAGEMENT CONSULTATION Name: RAMON SAEZ Room: [facility].#: [id number] Admission: 05/31/19 Attend Phys: Lupis Collins MD Discharge: Date of : 67 Report #: [id number] THIS REPORT FOR: //name// cc: Dasha Hansen MD, Katrina MD THIS REPORT FOR: //name// CC: Dasha Collins DATE OF SERVICE: 05/31/2019 CHIEF COMPLAINT: Here for medication renewal and I am still having headaches. HISTORY: The patient is a 53-year-old female who has been followed in the pain clinic. She has a tragic history. As you recall, she suffers from chronic headaches. She has Arnold-Chiari malformation in her skull. She continues to have pain, which is problematic. She states that her condition continues to worsen. She is unable to drive a car at this time. She continues to have decreased visual acuity. She has returned today for renewal of her medications. She rates her pain today as 10/10. Also, she has some pain in the low back area. Over the last month, she has noticed worsening of her pain. The weather has changed. With this change in weather and the falling barometric pressure, she notes that her pain continues to be problematic. She is having more falls. Notes that her falls often times can be more problematic when she gets up at night. She notes walking, sitting, standing, bending, and lifting are all somewhat problematic. ALLERGIES: PLASTIC TAPE, PAXIL, SULFA, IODINE, PENICILLIN, ORANGE FOOD COLOR. CURRENT MEDICATIONS: Tylenol 325 mg, vitamin C, Mili Hips 500 mg, Excedrin Migraine, Tums chewable, Celebrex 200 mg, Zyrtec 10 mg b.i.d., Bentyl 50 mg, Cymbalta 60 mg, vitamin D 50,000 units, Nexium 40 mg, folic acid, Lasix 40 mg, hydrochlorothiazide 12.5 mg, methadone 5 mg b.i.d., Ativan 0.5 mg, hydromorphone 2 mg q.12 hours p.r.n., total of 45 tablets monthly. PAIN CLINIC ASSESSMENT/PQRS: 1. The patient is not being treated for rheumatoid arthritis. She does have and has had knee replacements. She has some arthritic changes in her wrist. She is not being treated for rheumatoid arthritis. 2. Height 5 feet 3 inches, weight 209 pounds, BMI is 37.2. 3. Vital signs: Blood pressure 121/68, heart rate 73, respiratory rate 16, room air saturation 98%. 4. Pain intensity 10/10. 5. Fall history. The patient has fallen. States [place] [address] PAIN MANAGEMENT CONSULTATION Name: RAMON SAEZ Room: [facility]#: [id number] Admission: 05/31/19 Attend Phys: Lupis Collins MD Discharge: Date of : 67 Report #: [id number] at night. 6. Blood thinner. The patient is not on a blood thinning medication. 7. Hypertension. The patient is being treated for hypertension. Has an ejection fraction about 30%. 8. Opioids greater than 6 weeks. The patient received medication from [facility], the pain clinic. 9. Risk assessment tool, low for opioid use. 10. Functional assessment tool reviewed. 11. Recreational drug use: The patient denies. 12. Tobacco: The patient denies. 13. Alcohol: The patient rarely uses alcoholic beverages. PHYSICAL EXAMINATION: GENERAL: The patient is a well-developed, well-nourished white female, who appears her stated age. She is alert and oriented x 3. Her affect is appropriate. She is slow in delivery of speech. This is her usual delivery. She is accompanied. HEENT: Normocephalic, atraumatic. Extraocular eye muscles intact. Sclerae are nonicteric. NECK: Without adenopathy or JVD. HEART: Regular rate. ABDOMEN: Nontender. MUSCULOSKELETAL: Without scoliosis, kyphosis or lordosis. The patient does complain of difficulty with her gait. She has worn braces on her knees because of problems with her knees. She has problems with balance, had difficulty in swallowing, finds liquids more difficult to swallow than thicker foods. IMPRESSION: 1. Chronic headaches. 2. History of Arnold-Chiari syndrome, possible lupus. 2. Anterior cervical fusion, C6, C5. 3. History of aortic insufficiency. 4. Hypothyroidism. 5. Hypertension. 6. Asthma. 7. Chronic anemia. 8. Morbid obesity. Osteoarthritis with changes in her knees. 9. Chronic fatigue syndrome and positive Eve-Pathak titer in the past. 10. Status post T3, T4, T5, cervical or central disk protrusions. RECOMMENDATIONS: We discussed treatment options with the patient. We will continue with her medications. The patient states that she does fall. Again, we have had a discussion that to use a bicycle helmet might be efficacious. The patient states she remembers that will consider the use of this. She notes that most of the time when she gets up at night and is a little bit off balance that she gets up and walks relatively normal from one position to the next. We [facility] [address] [place] [address] PAIN MANAGEMENT CONSULTATION Name: RAMON SAEZ Room: [facility]#: [id number] Admission: 05/31/19 Attend Phys: Lupis Collins MD Discharge: Date of : 67 Report #: [id number] reminded her given that she has got lower ejection fraction of 30% that to sit up in bed, sit on the end of the bed for a few minutes and then slowly rise and go from a sitting to a standing position would probably be less problematic. She probably will less likely to suffer a fall. We would recommend the patient consider using a bicycle helmet while inside the bathroom. There were lots of hard surfaces on which she could fall and injure herself. A script for her medications has been renewed. She will continue with methadone 5 mg 1 p.o. b.i.d. She will also continue with Dilaudid 2 mg 1 p.o. b.i.d. The patient will continue with Ativan as needed. She will also continue with Celebrex and note her GI situation. Should she note some worsening of her GI tract, she will then stop taking that medication. She will continue with Cymbalta 60 mg 1 p.o. b.i.d. We would like to thank you for letting us participate in her care. The patient would like to try a cane. We have written for the patient to have a cane to assist her in walking. We would like to thank you for letting us participate in her care. We hope she continues to improve. <ELECTRONICALLY SIGNED> By: Lupis Collins MD 06/03/19 0824 [id number]. Freeman Collins MD /nt
== END ==
LOC: M.PC 03:23
DX: R51 Headache (principal); E03.9 Hypothyroidism, unspecified; I10 Essential (primary) hypertension; J45.909 Unspecified asthma, uncomplicated; D64.9 Anemia, unspecified; E66.01 Morbid (severe) obesity due to excess calories; M17.0 Bilateral primary osteoarthritis of knee; R53.83 Other fatigue; Z87.721 Personal history of (corrected) congenital malformations of ear; Z86.79 Personal history of other diseases of the circulatory system; Z88.2 Allergy status to sulfonamides; Z88.0 Allergy status to penicillin; Z91.018 Allergy to other foods; Z91.041 Radiographic dye allergy status

== ENCOUNTER → 2019-06-01 | Outpatient (CLI) | payer MEDICARE, BC ==
[2019-06-01 09:10] VITALS: BP 128/74
[2019-06-01 09:56] VITALS: BP 133/78
--- NOTE | 2019-06-01 09:59 | NUR ---
ARRIVED AMBULATORY. MADE SELF COMFORTABLE. IN RECLINER. PORT A CATH ACCESSED WITH OUT DIFFICULTY. GOOD BRISK BLOOD RETURN NOTED AND FLUSHED WITH EASE. MEDS COMPLETED AND TOLERATED WELL. DENIES QUESTIONS OR NEEDS AT DISCHARGE. SISTER IN LAW ELIAN HERE FOR TRANSPORT.
== END ==
LOC: M.INFUS 01:31
DX: L50.9 Urticaria, unspecified (principal)

== ENCOUNTER → 2019-06-15 | Outpatient (CLI) | payer MEDICARE, BC ==
[2019-06-15 10:35] VITALS: BP 132/75
[2019-06-15 11:30] VITALS: BP 122/80
== END ==
LOC: M.INFUS 02:09
DX: L50.9 Urticaria, unspecified (principal)

== ENCOUNTER → 2019-07-22 | Outpatient (CLI) | payer MEDICARE, BC ==
[2019-07-22 08:59] VITALS: BP 144/77
[2019-07-22 09:30] VITALS: BP 138/70
--- NOTE | 2019-07-22 09:58 | NUR ---
SPOKE WITH DR. COUGHLIN AND NEW ORDER RECIEVED STATING PT NEEDED PORT FLUSH AND MEDS FOR SAFETY REASON. PT HERE AND PORT ACCESSED WITH OUT DIFFICULTY. GOOD BRISK BLOOD RETURN NOTED AND FLUSHED WITH EASE. ALL MEDS GIVEN PER ORDER IVP LEFT CHEST PORT A CATH. PORT FLUSHED AND DEACCESSED. DISCHARGE TO HOME AFTER MONITORING AMBULATORY WITH FRIEND. FELICIANO QUESTION OR NEED AT DISCHARGE.
== END ==
LOC: M.INFUS 01:14
DX: L50.9 Urticaria, unspecified (principal)

== ENCOUNTER → 2019-08-30 | Outpatient (CLI) | payer MEDICARE, BC ==
[~2019-08-30] MED LIST changes: +ATIVAN0.5 M1 PO
[2019-08-30 08:35] VITALS: BP 132/75
[2019-08-30 09:00] VITALS: BP 125/68
[2019-08-30 09:30] VITALS: BP 130/74
[2019-08-30 09:30] LABS: ABSOLUTE EOSINOPHILS 0.1 thou/uL (0.0-0.7); ABSOLUTE LYMPHOCYTES 2.8 thou/uL (0.8-5.3); ABSOLUTE MONOCYTES 0.9 thou/uL (0.0-1.2); ABSOLUTE NEUTROPHILS 5.3 thou/uL (1.6-8.1); BASOPHILS 0.3 %; EOSINOPHILS 1.4 %; HEMATOCRIT 35.3 % (37.0-47.0); HEMOGLOBIN 12.1 gm/dL (12.0-15.0); LYMPHOCYTES 30.8 %; MCH 31.7 pg (26.0-34.0); MCHC 34.4 g/dL (28.0-37.0); MCV 92.2 fL (80.0-100.0); MONOCYTES 9.7 %; MPV 9.1 fl. (7.2-11.1); NUCLEATED RBCS 0 /100WBC; PLATELET COUNT* 218 thou/uL (150-400); POLYS 57.8 %; RBC 3.83 mil/uL (4.20-5.00); RDW-CV 13.2 % (10.5-14.5); WBC 9.1 thou/uL (4.0-11.0)
[2019-08-30 09:59] LABS: ALBUMIN 3.6 g/dL (3.4-5.0); CALCIUM 8.1 mg/dL (8.5-10.1); POTASSIUM 3.5 mmol/L (3.5-5.1); TOTAL BILIRUBIN 0.8 mg/dL (<0.1-1.0); TOTAL PROTEIN 6.5 g/dL (6.4-8.2)
--- NOTE | 2019-08-30 10:10 | NUR ---
ARRIVED AMBULATORY. MADE SELF COMFORTABLE. PORT A CATH ACCESSED WITH OUT DIFFICULTY. STANDING ORDER MEDS GIVEN IVP LEFT CHEST PORT A CATH. PORT DEACCESSED. PT NOTED TO BE SLEEPING DURING 30 MIN POST INJECTION MONITORING. PT DISCHARGE TO HOME AMBULATORY. UPON LEAVING UNIT PT NOTED TO HAVE UNSTEADY GAIT. ASSISTED PT TO WHEELCHAIR AND OUT TO CAR WITH . STATED HE WOULD HELP PT TO BED AND MONITOR THRU REST OF DAY.
== END ==
LOC: M.INFUS 07-27 10:30
PROVIDERS: Internal Medicine Rheumatology
DX: L50.9 Urticaria, unspecified (principal); G43.909 Migraine, unspecified, not intractable, without status migrainosus

== ENCOUNTER → 2019-09-06 | Outpatient (CLI) | payer MEDICARE, BC ==
--- NOTE | 2019-09-15 14:15 | PAINCON ---
[address] [address] PAIN MANAGEMENT CONSULTATION Name: RAMON SAEZ Room: [facility].#: [id number] Admission: 09/06/19 Attend Phys: Lupis Collins MD Discharge: Date of : 67 Report #: [id number] THIS REPORT FOR: //name// cc: Dasha Hansen MD, Katrina MD ~ THIS REPORT FOR: //name// CC: Dasha Collins DATE OF SERVICE: 09/06/2019 CHIEF COMPLAINT: Here for medication renewal. HISTORY: The patient is a 54-year-old female who has been followed in the Pain Clinic. She has been followed for a number of years. She has a significant problem with headaches. 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 This causes chronic headaches. She has gone to a number of venues for advice and treatment. At this point, she finds that her medications are helpful. She is having pain in the low back area. Notes the pain in her head and shoulders. She also complains of some left knee discomfort. She feels that she has broken her shoulder. This happened about a week ago. She has been doing exercises provided by physical therapy at home. She notes that activity, walking, sitting, standing, lifting and bending can exacerbate her discomfort. Use of her medication is helpful. Also, rest has been beneficial. She has returned today for renewal of her medication. ALLERGIES: PLASTIC TAPE, PAXIL, SULFA, IODINE, PENICILLIN, ORANGE FOOD COLOR. CURRENT MEDICATIONS: Tylenol 325 mg, vitamin C, Mili Hips 500 mg, Excedrin Migraine, Tums chewable, Celebrex 200 mg, Zyrtec 10 mg b.i.d., Bentyl 50 mg, Cymbalta 60 mg, vitamin D 50,000 units, Nexium 40 mg, folic acid, Lasix 40 mg, hydrochlorothiazide 12.5 mg, methadone 5 mg b.i.d., Ativan 0.5 mg, hydromorphone 2 mg q. 12 hours for a total of 45 tablets monthly. PAIN CLINIC ASSESSMENT/PQRS: 1. The patient is not being treated for rheumatoid arthritis. She has had some pain in her knee and has not had a knee replacement. 2. Osteoarthritis. The patient has some arthritic changes in her wrist. She is not being treated for rheumatoid arthritis. 3. Height 5 feet 3 inches, weight 210 pounds, BMI is 37.2. 4. Vital Signs: Blood pressure 119/77, heart rate 81, respiratory rate 16, room air saturation is 97%, temperature 98 degrees. 5. Pain intensity, 8/10. 6. Fall history: The patient has not fallen [place] [address] PAIN MANAGEMENT CONSULTATION Name: LOPEZI Ivory Room: [facility]#: [id number] Admission: 09/06/19 Attend Phys: Lupis Collins MD Discharge: Date of : 67 Report #: [id number] 7. Blood thinner. The patient is not on a blood thinning medication. 8. Hypertension. The patient is being treated for hypertension. 9. The patient has an ejection fraction of about 30%. 10. Opioids greater than 6 weeks. The patient receives medication from one source the Pain Clinic. 11. Risk assessment tool, low for opioid use. 12. Functional assessment tool, reviewed. 13. Recreational drug use. The patient denies. 14. Tobacco: The patient denies. 15. Alcohol: The patient rarely uses alcoholic beverages. PHYSICAL EXAMINATION: GENERAL: The patient is a well-developed, well-nourished white female. Appears her stated age. She is alert and oriented x 3. Her affect is appropriate. Speech is fluent. The patient has a slow delivery of speech. This is her usual pattern. She is unaccompanied. HEENT: Normocephalic, atraumatic. Extraocular eye muscles intact. Sclerae nonicteric. NECK: Without adenopathy or JVD. HEART: Regular rate. The patient does complain of some headache pain. ABDOMEN: Nontender. MUSCULOSKELETAL: Without significant scoliosis, kyphosis or lordosis. The patient does have some difficulty with her gait. She has used braces on her knees in the past. Has some problems with balance. Has difficulty swallowing fluids. IMPRESSION: 1. Chronic headaches. 2. History of Arnold Chiari Syndrome, possible lupus. 3. Anterior cervical fusion C6/C5. 4. History of aortic insufficiency. 5. Hypothyroidism. 6. Hypertension. 7. Asthma. 8. Chronic anemia. 9. Morbid obesity. 10. Osteoarthritis changes in the knees. 11. Chronic fatigue syndrome with positive Eve-Pathak titer in the past. 11. Status post T3, T4, T5, cervical and ventral disk protrusions. RECOMMENDATIONS: We discussed treatment options with the patient. At this juncture, we will continue with her medications. She has been reminded that the use of a bicycle helmet on days when she is unstable might be efficacious. She feels that her medications are helpful and would like to continue their use. The patient will call us if she has any concerns. A script for her medications of Celebrex 200 mg has been rewritten. She will stop this medication should she [facility] [address] [place] [address] PAIN MANAGEMENT CONSULTATION Name: RAMON SAEZ Room: [facility] M..#: [id number] Admission: 09/06/19 Attend Phys: Lupis Collins MD Discharge: Date of : 67 Report #: [id number] note some GI complaints. The patient will also continue with Cymbalta 60 mg b.i.d. She will continue with the hydromorphone 2 mg 1 p.o. b.i.d. p.r.n. for pain. The patient will also continue with Ativan for anxiety. She will continue with methadone b.i.d., 5 mg. She will call us again if she has any concerns. We would like to thank you for letting us participate in her care. We hope she continues to improve. <ELECTRONICALLY SIGNED> By: Lupis Collins MD 09/15/19 1415 1638 0151N. Freeman Collins MD /nt
== END ==
LOC: M.PC 05:01
DX: R51 Headache (principal); E03.9 Hypothyroidism, unspecified; I10 Essential (primary) hypertension; J45.909 Unspecified asthma, uncomplicated; D64.9 Anemia, unspecified; E66.01 Morbid (severe) obesity due to excess calories; M17.0 Bilateral primary osteoarthritis of knee; Q07.00 Arnold-Chiari syndrome without spina bifida or hydrocephalus; Z98.1 Arthrodesis status; Z86.2 Personal history of diseases of the blood and blood-forming organs and certain disorders involving the immune mechanism; Z87.39 Personal history of other diseases of the musculoskeletal system and connective tissue; F11.20 Opioid dependence, uncomplicated; Z88.0 Allergy status to penicillin; Z88.1 Allergy status to other antibiotic agents; Z88.8 Allergy status to other drugs, medicaments and biological substances; Z91.018 Allergy to other foods; Z79.899 Other long term (current) drug therapy

== ENCOUNTER → 2019-09-15 | Outpatient (CLI) | payer MEDICARE, BC ==
[2019-09-15 12:05] VITALS: BP 132/80
[2019-09-15 12:38] VITALS: BP 148/84
--- NOTE | 2019-09-15 12:55 | NUR ---
ARRIVED AMBULATORY. MADE SELF COMFORTABLE IN RECLINER. PORT A CATH ACCESSED WITH OUT DIFFICULTY. GOOD BRISK BLOOD RETURN AND EASY FLUSH. PT REPORTS PAIN RATED AT 8. ALL MEDS GIVEN PER ORDER IVP THRU LEFT CHEST PORT A CATH. PORT FLUSHED AND DEACCESSED. MONITORED 30 MIN. SPOKE TO ELIAN GOULD'S SISTER IN LAW WHO STATES SHE IS DRIVING PT HOME. DENIES QUESTIONS OR NEEDS AT DISCHARGE.
== END ==
LOC: M.INFUS 09-07 10:30
DX: G43.909 Migraine, unspecified, not intractable, without status migrainosus (principal); L50.9 Urticaria, unspecified

== ENCOUNTER → 2019-10-05 | Outpatient (CLI) | payer MEDICARE, BC ==
[2019-10-05 11:54] VITALS: BP 160/77
[2019-10-05 12:54] VITALS: BP 132/84
[2019-10-05 12:54] LABS: HEMATOCRIT 38.1 % (37.0-47.0); HEMOGLOBIN 12.9 gm/dL (12.0-15.0); MCH 31.3 pg (26.0-34.0); MCHC 33.7 g/dL (28.0-37.0); MCV 92.8 fL (80.0-100.0); MPV 9.5 fl. (7.2-11.1); RBC 4.11 mil/uL (4.20-5.00); RDW-CV 13.4 % (10.5-14.5); WBC 7.4 thou/uL (4.0-11.0)
[2019-10-05 13:08] LABS: ALBUMIN 3.6 g/dL (3.4-5.0); CALCIUM 8.3 mg/dL (8.5-10.1); CREATININE 0.9 mg/dL (0.6-1.3); TOTAL BILIRUBIN 0.4 mg/dL (<0.1-1.0); TOTAL PROTEIN 6.5 g/dL (6.4-8.2)
--- NOTE | 2019-10-05 13:27 | NUR ---
PORT ACCESSED WITH OUT DIFFICULTY. GOOD BRISK BLOOD RETURN NOTED AND FLUSHED WITH EASE. ORDERED LABS DRAWN AND STANDING ORDER MEDS COMPLETED. PORT FLUSHED AND DEACCESSED. TOLERATED WELL. CARRIE QUESTIONS OR NEEDS AT DISCHARGE.
== END ==
LOC: M.INFUS 08:40
PROVIDERS: ATTEND Internal Medicine Rheumatology
DX: G43.909 Migraine, unspecified, not intractable, without status migrainosus (principal); R79.89 Other specified abnormal findings of blood chemistry

== ENCOUNTER → 2019-10-19 | Outpatient (CLI) | payer MEDICARE, BC ==
[2019-10-19 08:28] VITALS: BP 106/58
[2019-10-19 09:20] VITALS: BP 105/65
== END ==
LOC: M.INFUS 03:49
PROVIDERS: ATTEND Internal Medicine Rheumatology
DX: G43.909 Migraine, unspecified, not intractable, without status migrainosus (principal); L50.9 Urticaria, unspecified

== ENCOUNTER → 2019-11-02 | Outpatient (CLI) | payer MEDICARE, BC ==
[2019-11-02 12:05] VITALS: BP 132/74
== END ==
LOC: M.INFUS 08:56
PROVIDERS: ATTEND Internal Medicine Rheumatology
DX: G43.909 Migraine, unspecified, not intractable, without status migrainosus (principal); L50.9 Urticaria, unspecified

== ENCOUNTER → 2019-11-14 | Outpatient (CLI) | payer MEDICARE, BC ==
[2019-11-14 12:06] VITALS: BP 128/74
[2019-11-14 12:45] VITALS: BP 133/62
--- NOTE | 2019-11-14 12:48 | NUR ---
ARRIVED AMBULATORY. MADE SELF COMFORTABLE IN RECLINER. PORT ACCESSED WITH OUT DIFFICULTY. GOOD BRISK BLOOD RETURN AND EASY FLUSH. ALL MEDS GIVEN IV PUSH LEFT CHEST. PORT FLUSHED AND DEACCESSED. TOLERATED WELL. CARRIE QUESTION OR NEEDS AT DISCHARGE.
[2019-11-14 13:08] LABS: ABSOLUTE BASOPHILS 0.1 thou/uL (0.0-0.2); ABSOLUTE EOSINOPHILS 0.1 thou/uL (0.0-0.7); ABSOLUTE LYMPHOCYTES 3.1 thou/uL (0.8-5.3); ABSOLUTE MONOCYTES 0.8 thou/uL (0.0-1.2); BASOPHILS 0.8 %; EOSINOPHILS 1.5 %; HEMOGLOBIN 12.8 gm/dL (12.0-15.0); LYMPHOCYTES 30.8 %; MCH 30.9 pg (26.0-34.0); MCHC 33.8 g/dL (28.0-37.0); MCV 91.5 fL (80.0-100.0); MONOCYTES 7.7 %; MPV 9.9 fl. (7.2-11.1); NUCLEATED RBCS 0 /100WBC; PLATELET COUNT* 243 thou/uL (150-400); POLYS 59.2 %; RBC 4.15 mil/uL (4.20-5.00); RDW-CV 13.3 % (10.5-14.5); WBC 10.1 thou/uL (4.0-11.0)
[2019-11-14 13:25] LABS: ALBUMIN 3.2 g/dL (3.4-5.0); ALKALINE PHOSPHATASE 158 U/L (46-116); ANION GAP 6 mmol/L (7-16); BUN 19 mg/dL (7-18); CALCIUM 7.9 mg/dL (8.5-10.1); CHLORIDE 108 mmol/L (98-107); CHOLESTEROL 108 mg/dL (<200); CO2 28 mmol/L (21-32); CREATININE 0.9 mg/dL (0.6-1.3); GLUCOSE 98 mg/dL (70-99); HDL CHOLESTEROL 62 mg/dL (>40); LDL CHOLESTEROL 30 mg/dL (<100); POTASSIUM 3.6 mmol/L (3.5-5.1); SERUM ASSESSMENT Clear; SGOT 47 U/L (15-37); SGPT 59 U/L (30-65); SODIUM 142 mmol/L (136-145); TC:HDL 1.7 Ratio (Not establshd); TOTAL BILIRUBIN 0.3 mg/dL (<0.1-1.0); TRIGLYCERIDE 81 mg/dL (<150); VLDL 16 mg/dL (<40)
== END ==
LOC: M.INFUS 10:44
PROVIDERS: ATTEND Internal Medicine Rheumatology
DX: G43.909 Migraine, unspecified, not intractable, without status migrainosus (principal); L50.9 Urticaria, unspecified; E78.5 Hyperlipidemia, unspecified; Z79.899 Other long term (current) drug therapy

== ENCOUNTER → 2019-11-30 | Outpatient (CLI) | payer MEDICARE, BC ==
--- NOTE | 2019-11-29 11:00 | NUR ---
ARRIVED AMBULATORY. MADE SELF COMFORTABLE IN RECLINER. PORT ACCESSED WITH OUT DIFFICULTY. GOOD BRISK BLOOD RETURN AND EASY FLUSH NOTED. MONTHLY LABS DRAWN PER ORDERS. PAC FLUSHED AND DEACCESSED. CARRIE QUESTIONS OR NEEDS AT DISCHARGE.
[2019-11-30 08:10] VITALS: BP 121/74
[2019-11-30 09:00] VITALS: BP 119/72
--- NOTE | 2019-11-30 09:14 | NUR ---
ALL DOCUMENTATION DONE 11/29/19 IS WRONG CHART ALL DOCUMENTATION DONE IS CORRECT CHART ARRIVED AMBUALTROY MADE SELF COMFROTABLE IN RECLINER. PORT A CATH ACCESSED WITH OUT DIFFICULTY. GOOD BRLOOD RETURN NOTED AND FLUSHED WITH EASE. IV PUSH MED COMPLETED PER STANDING ORDER OF DR. MCMAHON. PORT LEFT ACCESSED FOR USE IN SURGERY TOMORROW PER NEW ORDER FROM DR. CONNOR.
== END ==
LOC: M.INFUS 04:43
PROVIDERS: ATTEND Internal Medicine Rheumatology
DX: G43.909 Migraine, unspecified, not intractable, without status migrainosus (principal)

== ENCOUNTER → 2019-12-27 | Outpatient (CLI) | payer MEDICARE, BC ==
[~2019-12-27] MED LIST changes: +CLONAZEPAM 0.50.5 M1 PO
--- NOTE | 2019-12-29 10:21 | PAINCON ---
[address] [address] PAIN MANAGEMENT CONSULTATION Name: RAMON SAEZ Room: [facility].#: [id number] Admission: 12/27/19 Attend Phys: Lupis Collins MD Discharge: Date of : 67 Report #: [id number] THIS REPORT FOR: //name// cc: Dasha Hansen MD, Katrina MD ~ THIS REPORT FOR: //name// CC: Dasha Collins DATE OF SERVICE: 12/27/2019 CHIEF COMPLAINT: Continued headache pain. HISTORY: The patient is a 54-year-old female, who has been followed in the Pain Clinic. She has returned today for renewal of her medications. She has pain in her head and rates it as an 8/10. She feels as though there is "big apple on it." She does have a Port-A-Cath, which has been used for treatment. She no longer sees the person that normally flushes the Port-A-Cath. She feels that she needs to have this evaluated because sometimes seems slow to flush. She is also considering the use of a stimulator in the occipital area to help with the pain. She has also been informed that vagus nerve stimulators may be efficacious. She is going to follow up with a neurologist and see whether or not any of these options would be beneficial and decrease her need for oral medications. ALLERGIES: PLASTIC TAPE, PAXIL, SULFA, IODINE, PENICILLIN, ORANGE FOOD COLORING. CURRENT MEDICATIONS: Advair 1 puff b.i.d., Topamax 75 mg b.i.d., hydrochlorothiazide 12.5 mg, Benadryl 50 mg p.r.n. itching, Crestor 10 mg, potassium 20 mEq b.i.d., doxycycline 100 mg b.i.d., Zanaflex 4 mg t.i.d. for muscle spasms, Prozac 10 mg, Aimovig auto-injector 140 mg subcutaneously monthly, Nexium 40 mg, Zyrtec 10 mg b.i.d., vitamin D 50,000 units, Synthroid 100 mcg, MiraLax 225 mg, Benefiber, acetaminophen 325 mg, vitamin B complex, vitamin C plus, Mili Hips 500 mg, Lasix 40 mg for swelling p.r.n., Ditropan XL 5 mg, pseudoephedrine/Sudafed p.r.n., iron 5 mL replacement, calcium carbonate 500 mg, folic acid 1 mg, Coreg 3.125, Celebrex 200 mg, Cymbalta 60 mg b.i.d., Dilaudid 2 mg p.o. t.i.d., Ativan 0.5 mg for anxiety. PAIN CLINIC ASSESSMENT AND PQRS: 1. The patient has some pain in her knees. She has not had knee replacements. 2. Osteoarthritis: The patient has some arthritic changes in her wrist. She is not being treated for rheumatoid arthritis. 3. Height 5 feet 3 inches, weight 215 pounds, BMI is 38. 4. Vital signs: Blood pressure 126/78, heart rate 68, respiratory rate 16, [facility] [address] [place] [address] PAIN MANAGEMENT CONSULTATION Name: RAMON SAEZ [id number] Admission: 12/27/19 Attend Phys: Lupis Collins MD Discharge: Date of : 67 Report #: [id number] room air saturation 99%, temperature 97.0. 5. Pain intensity: 8/10. 6. Fall history: The patient has not fallen in the last few weeks. 7. Blood thinner: The patient is not on a blood thinning medication. 8. Hypertension: The patient is being treated for hypertension. 9. Opioids greater than 6 weeks: The patient receives medication from the Pain Clinic. 10. Risk assessment: Low for opioid use. 11. Functional assessment tool: Reviewed. 12. Recreational drug use: The patient denies. 13. Tobacco: The patient denies. 14. Alcohol: The patient rarely drinks alcoholic beverages. PHYSICAL EXAMINATION: GENERAL: The patient is a well-developed, well-nourished, white female. Appears her stated age. She is alert and oriented x 3. Her affect is appropriate. Speech is fluent. HEENT: Normocephalic, atraumatic. Extraocular eye muscles intact. Sclerae nonicteric. Mucous membranes are moist. The patient is wearing a mask. She does complain of headaches. NECK: Without adenopathy or JVD. HEART: Regular. ABDOMEN: Nontender. MUSCULOSKELETAL: Without significant scoliosis, kyphosis or lordosis. The patient has some difficulty swallowing fluids. SKIN: The patient has a Port-A-Cath in place. IMPRESSION: 1. Chronic headaches. 2. History of Arnold-Chiari syndrome, possible lupus. 3. Anterior cervical fusion, C6/C5. 4. History of aortic insufficiency. 5. Hypothyroidism. 6. Hypertension. 7. Asthma. 8. Chronic anemia. 9. Morbid obesity. 10. Osteoarthritic changes in her knees. 11. Chronic fatigue syndrome with Eve-Pathak titer in the past. 12. Cervical and ventral disk protrusion at C3, C4, C5. RECOMMENDATIONS: We discussed the risks and benefits of opioid use. The patient does have a port in place. She is no longer seeing the person who generally flushes the port, she would like to find another option. We recommend that she follow up with her primary in that regard. The patient states she is no longer seeing Dr. Walker, her optoelectronic technician. [place] [address] PAIN MANAGEMENT CONSULTATION Name: RAMON SAEZ Room: [facility]#: [id number] Admission: 12/27/19 Attend Phys: Lupis Collins MD Discharge: Date of : 67 Report #: [id number] patient's current medical regimen. A script for all of her medications have been rewritten. She is going to see a neurosurgeon. Possibility of a stimulator in the occipital area artery or vagus nerve stimulator to help control the pain is what she would like to inquire about. A script for her medications have all been rewritten. She will call us if she has any concerns. We would like to thank you for letting us participate in her care. We hope she continues to improve. <ELECTRONICALLY SIGNED> By: Lupis Collins MD 12/29/19 1021 1232 2250N. Freeman Collins MD /nt
== END ==
LOC: M.PC 09:37
PROVIDERS: ATTEND Anesthesiology Pain Medicine
DX: R51 Headache (principal); G89.29 Other chronic pain; M43.22 Fusion of spine, cervical region; M50.21 Other cervical disc displacement, high cervical region; Q07.02 Arnold-Chiari syndrome with hydrocephalus; E03.9 Hypothyroidism, unspecified; I10 Essential (primary) hypertension; J45.909 Unspecified asthma, uncomplicated; D63.8 Anemia in other chronic diseases classified elsewhere; E66.01 Morbid (severe) obesity due to excess calories; M17.0 Bilateral primary osteoarthritis of knee; F11.20 Opioid dependence, uncomplicated; R53.82 Chronic fatigue, unspecified; Z87.448 Personal history of other diseases of urinary system; Z88.8 Allergy status to other drugs, medicaments and biological substances; Z79.899 Other long term (current) drug therapy

== ENCOUNTER 2020-01-16 05:41 | Emergency (ER) | payer MEDICARE, BC ==
[~2020-01-16] VITALS: Ht 160 cm; Wt 97.7 kg
[2020-01-16 06:28] VITALS: BP 121/72
== END 2020-01-16 06:30 | disposition home or self-care (01) ==
LOC: M.ERS 05:41
DX: M54.81 Occipital neuralgia (principal); R51 Headache; I48.91 Unspecified atrial fibrillation; J45.909 Unspecified asthma, uncomplicated; Z91.048 Other nonmedicinal substance allergy status; Z90.49 Acquired absence of other specified parts of digestive tract; Z88.0 Allergy status to penicillin; Z88.2 Allergy status to sulfonamides; Z88.8 Allergy status to other drugs, medicaments and biological substances

== ENCOUNTER → 2020-01-25 | Outpatient (CLI) | payer MEDICARE, BC ==
[~2020-01-25] MED LIST changes: +ELIQUIS5 MG PO; +LIDOPATCH1 EACH TOP; +OXYCODONE HCL 55 MG PO; +TRAMADOL 50 MG50 MG PO
[2020-01-25 13:53] LABS: HEMATOCRIT 41.7 % (37.0-47.0); HEMOGLOBIN 14.2 gm/dL (12.0-15.0); MCH 31.6 pg (26.0-34.0); MCV 92.9 fL (80.0-100.0); MPV 8.1 fl. (7.2-11.1); NUCLEATED RBCS 0 /100WBC; PLATELET COUNT* 232 thou/uL (150-400); RBC 4.48 mil/uL (4.20-5.00); RDW-CV 13.6 % (10.5-14.5); WBC 6.7 thou/uL (4.0-11.0)
[2020-01-25 14:08] LABS: ALBUMIN 3.8 g/dL (3.4-5.0); CALCIUM 8.9 mg/dL (8.5-10.1); CREATININE 0.9 mg/dL (0.6-1.3); POTASSIUM 3.8 mmol/L (3.5-5.1); TOTAL BILIRUBIN 0.8 mg/dL (<0.1-1.0); TOTAL PROTEIN 6.9 g/dL (6.4-8.2)
[2020-01-25 15:08] LABS: ABSOLUTE EOSINOPHILS 0.1 thou/uL (0.0-0.7); ABSOLUTE LYMPHOCYTES 3.2 thou/uL (0.8-5.3); ABSOLUTE MONOCYTES 0.5 thou/uL (0.0-1.2); ABSOLUTE NEUTROPHILS 2.9 thou/uL (1.6-8.1); PLATELET ESTIMATE ADEQUATE
[2020-01-25 15:10] LABS: ESR (SEDRATE) 0 mm/hr (0-30)
== END ==
LOC: M.LAB 13:16
PROVIDERS: ATTEND Internal Medicine Gastroenterology
DX: D50.9 Iron deficiency anemia, unspecified (principal); R19.4 Change in bowel habit; R79.89 Other specified abnormal findings of blood chemistry; E11.9 Type 2 diabetes mellitus without complications; Z79.899 Other long term (current) drug therapy

== ENCOUNTER → 2020-01-31 | Outpatient (CLI) | payer MEDICARE, BC ==
[2020-01-31 11:59] LABS: ABSOLUTE BASOPHILS 0.1 thou/uL (0.0-0.2); ABSOLUTE EOSINOPHILS 0.2 thou/uL (0.0-0.7); ABSOLUTE LYMPHOCYTES 2.9 thou/uL (0.8-5.3); ABSOLUTE MONOCYTES 0.5 thou/uL (0.0-1.2); ABSOLUTE NEUTROPHILS 3.8 thou/uL (1.6-8.1); BASOPHILS 0.9 %; EOSINOPHILS 2.4 %; HEMATOCRIT 40.1 % (37.0-47.0); HEMOGLOBIN 13.4 gm/dL (12.0-15.0); LYMPHOCYTES 38.6 %; MCH 31.1 pg (26.0-34.0); MCHC 33.4 g/dL (28.0-37.0); MCV 92.9 fL (80.0-100.0); MONOCYTES 6.9 %; MPV 8.8 fl. (7.2-11.1); NUCLEATED RBCS 0 /100WBC; PLATELET COUNT* 212 thou/uL (150-400); POLYS 51.2 %; RBC 4.31 mil/uL (4.20-5.00); RDW-CV 13.2 % (10.5-14.5); WBC 7.5 thou/uL (4.0-11.0)
[2020-01-31 12:09] LABS: APTT 25.8 Seconds (25.0-31.3); PROTIME 10.5 Seconds (9.20-11.50)
[2020-01-31 12:21] LABS: ALBUMIN 3.7 g/dL (3.4-5.0); CALCIUM 8.4 mg/dL (8.5-10.1); CREATININE 0.9 mg/dL (0.6-1.3); POTASSIUM 3.2 mmol/L (3.5-5.1); TOTAL BILIRUBIN 0.6 mg/dL (<0.1-1.0); TOTAL PROTEIN 6.4 g/dL (6.4-8.2)
[2020-01-31 13:18] LABS: ESR (SEDRATE) 0 mm/hr (0-30)
--- NOTE | 2020-01-31 16:00 | EKG ---
[place] [address] ELECTROCARDIOGRAM REPORT Name: SAEZRAMON Room: [facility]#: [id number] Admission: 01/31/20 Attend Phys: Keo Avalos DO Discharge: Date of : 67 Date of Service: 01/31/20 1151 Report #: [id number] THIS REPORT FOR: //name// [facility] Test Date: 2020-01-31 Test Time: 11:51:19 Pat Name: RAMON SAEZ Department: Room: Gender: Wall And Floor Tiler: : 1965 Requested By: Keo Avalos Order Number: [id number] Tomi MD: Tristan Swanson Measurements Intervals Dierks Rate: 64 P: 61 NE: 153 QRS: 70 QRSD: 104 T: 33 QT: 429 QTc: 443 Interpretive Statements Sinus rhythm Compared to ECG 10/25/2015 09:48:26 T-wave abnormality no longer present Electronically Signed On 01-31-2020 16:00:18 CDT by Tristan Swanson [email or web address] <ELECTRONICALLY SIGNED> By: Tristan Swanson MD, [facility] 01/31/20 1600 115 50 Tristan Swanson MD, FACC /EPI
[2020-02-01 02:06] LABS: GLYCOHEMOGLOBIN (HGB A1C) 5.5 % (4.8-5.6)
== END ==
LOC: M.LAB 11:06
PROVIDERS: ATTEND Orthopaedic Surgery
DX: Z01.812 Encounter for preprocedural laboratory examination (principal); Z01.818 Encounter for other preprocedural examination; Z20.828 Contact with and (suspected) exposure to other viral communicable diseases; M25.562 Pain in left knee; E11.9 Type 2 diabetes mellitus without complications

== ENCOUNTER 2020-02-06 10:01 | Inpatient (IN) | payer MEDICARE, BC ==
[~2020-02-06] VITALS: Ht 160 cm; Wt 91.2 kg
[~2020-02-06 10:01] MED LIST changes: -ELIQUIS5 MG PO; -LIDOPATCH1 EACH TOP; -OXYCODONE HCL 55 MG PO; -TRAMADOL 50 MG50 MG PO
[2020-02-06 16:00] VITALS: BP 107/78
--- NOTE | 2020-02-06 16:07 | OP ---
[facility] [place] [address] [place] [address] OPERATIVE REPORT Name: RAMON SAEZ Room: [address] MGwen#: [id number] Admission: 02/06/20 Attend Phys: Charmaine Mckenzie Discharge: Date of : 67 Report #: [id number] THIS REPORT FOR: //name// cc: Dasha Hansen MD, Katrina MD ~ CC: Eligio Peres DATE OF SERVICE: 02/06/2020 PREOPERATIVE DIAGNOSIS: Traumatic instability, status post left total knee arthroplasty. POSTOPERATIVE DIAGNOSIS: Traumatic instability, status post left total knee arthroplasty. PROCEDURE PERFORMED: Revision left knee arthroplasty with polyethylene exchange utilizing the [employer] system with an 18 mm PS polyethylene. SURGEON: Keo Avalos DO GROUP SEGMENT CONSULTANT: Angeles Aranda PA-C and Casey Blanchard DO ANESTHESIA: General with peripheral nerve block by Anesthesia. ESTIMATED BLOOD LOSS: 50 mL. SPECIMENS: None. COMPLICATIONS: None. DISPOSITION: Stable to PACU. ANTIBIOTICS: 1 gram IV vancomycin preop. TOURNIQUET: 22 minutes at 295 mmHg. INDICATIONS FOR SURGERY: The patient is a 54-year-old female who underwent a left total knee in 2015. She did well initially. However, since that time, she has had multiple falls. After these falls, she has noticed increasing instability in her knee thus falling on a daily basis. She is having trouble performing ADLs. Her exam was consistent with instability, noted at both 0 and 90 degrees of flexion. Therefore, I recommend she undergo a revision knee arthroplasty. [address] [address] OPERATIVE REPORT Name: RAMON SAEZ Room: [address] MRosa MariaR.#: [id number] Admission: 02/06/20 Attend Phys: Charmaine Mckenzie Discharge: Date of : 67 Report #: [id number] DESCRIPTION OF PROCEDURE: The patient was seen in the preoperative area. Written consent was obtained. The operative site was marked. The patient brought back to the operative suite, placed supine on a well-padded operating table. She was given benefit of general anesthesia. A well-padded pneumatic tourniquet was placed on the left proximal thigh. Left lower extremity was then prepped and draped in normal sterile fashion. A surgical timeout was performed where correct site, side, and procedure were verified. All the parties were in agreement. Procedure began with placement of tourniquet to 295 mmHg after Esmarch exsanguination. This was inflated at the end of procedure for a total time of 22 minutes. Standard midline incision was created. Sharp dissection through skin. We excised the previous scar. Sharply dissected with a knife down to the extensor mechanism. A new blade was used to create standard medial parapatellar arthrotomy. We excised a fair amount of scar tissue. We subluxed the patella laterally. We removed the polyethylene component, which was 13 PS. We trialed the 15th. There was still some instability noted at 0, 30 degrees and 90 degrees of flexion. We upsized to an 18 PS, which allowed for full flexion and extension. Good stability at 0, 30, and 90 degrees of flexion. We removed the trial component. We injected orthopedic cocktail in the posterior capsule. We thoroughly irrigated the knee. We removed some scar tissue from the posterior aspect of the knee. We inserted the 18 PS polyethylene component. Again, the knee was taken through range of motion, full flexion, extension, good stability in all planes. Tourniquet was deflated for a total time of 22 minutes. The knee was thoroughly irrigated. Capsular tissues closed with #1 Vicryl in [id number] fashion and reinforced with a running #1 Stratafix. The wound was again thoroughly irrigated. Vancomycin powder was introduced throughout this incision. Subcutaneous tissues closed with 2-0 Monocryl in simple inverted interrupted fashion, reinforced with a running 3-0 Stratafix. Skin glue was applied. Mepilex was placed. The patient was awoken from anesthesia and transferred to PACU in stable condition with no complications. Needle, sponge count correct x 2. Dr. Avalos was present for all critical aspects of the case. <ELECTRONICALLY SIGNED> By: Keo Avalos DO 02/06/20 1607 1351 [id number] Avalos DO /nt
[2020-02-06 20:00] VITALS: BP 120/75
[2020-02-07] VITALS (7 sets, daily range): BP systolic 103–143; BP diastolic 54–68
[2020-02-07 05:50] LABS: HEMATOCRIT 34.2 % (37.0-47.0); HEMOGLOBIN 11.4 gm/dL (12.0-15.0)
[2020-02-08 08:07] VITALS: BP 104/51
[2020-02-08 09:57] LABS: HEMATOCRIT 33.2 % (37.0-47.0)
[2020-02-08 16:16] VITALS: BP 124/73
[2020-02-08 21:00] VITALS: BP 136/80
[2020-02-09 07:24] VITALS: BP 114/59
[2020-02-09] MEDS ORDERED: ELIQUIS5 MG PO (07:51)
[2020-02-09] MEDS ORDERED: LIDOPATCH1 EACH TOP (07:51)
[2020-02-09 09:05] VITALS: BP 114/59
[2020-02-09] MEDS ORDERED: TRAMADOL 50 MG50 MG PO (10:05)
[2020-02-09] MEDS ORDERED: OXYCODONE HCL 55 MG PO (10:05)
--- NOTE | 2020-02-09 10:07 | PATH ---
[address] [address] PATHOLOGY RPT PROCEDURE Name: RAMON SAEZ Room: [address] [place] .R.#: [id number] Admission: 02/07/20 Date of : 67 Discharge: Report #: [id number] Path Case #: [id number] [facility] Accession Number: [id number] . 01 Material submitted: . knee - REVISION SCAR LEFT KNEE. Modifiers: left . 01 Clinical history: . LEFT KNEE INSTABILITY, LEFT KNEE PAIN, PRESENCE OF LEFT ARTIFICAL KNEE JOINT . 02 Diagnosis: Revision scar left knee: - Benign skin with dermal cicatrix showing nonspecific ulceration. (GORDON:gregorio; 02/08/2020) QMS 02/08/2020 1527 Local . 02 Electronically signed: . Mehdi Garvin MD, Pathologist NPI- [id number] . 01 Gross description: . The specimen is received in formalin, labeled "Ramon Saez, revision scar". The site is further designated on the requisition in the pre-op diagnosis as, "left knee". Received is an ellipse of pale bowman, wrinkled skin measuring 4.4 x 0.8 x 1.0 cm in greatest dimensions. Sectioning reveals white to pale yellow cut surfaces. No distinct nodules or lesions are noted grossly. The specimen is submitted representatively in cassettes A1 and A2. (CAA; 02/07/2020) QAC/QAC 02/07/2020 1528 Local . 02 Pathologist provided ICD-10: L98.499 . 02 CPT . 377112 Specimen Comment: A courtesy copy of this report has been sent to [phone], [phone] Specimen Comment: [phone], , Specimen Comment: Report sent to ,DR PUENTES,DR LIZARRAGA / DR BUCHANAN Performed at: [address] [id number] MD Arnie Perkins MD Phone: [phone] Performed at: 02 [facility] [address] [place], [place] [id number] [address] [address] PATHOLOGY RPT PROCEDURE Name: RAMON SAEZ Room: [address] [place] M.R.#: [id number] Admission: 02/07/20 Date of : 67 Discharge: Report #: [id number] Path Case #: [id number] MD [facility] Phone: [phone]
[2020-02-09 10:43] VITALS: BP 114/59
[2020-02-09 11:01] VITALS: BP 114/59
[2020-02-09 11:57] VITALS: BP 114/59
== END 2020-02-09 11:59 | disposition home health service (06) | DRG 468 ==
LOC: M.TBA 10:01 → M.PRE 10:35 → M.ORTHSURG 15:41 → EDSTATUS 15:41 → M.ORTHSURG 15:41
PROVIDERS: Orthopaedic Surgery; ADMIT Internal Medicine; ATTEND Internal Medicine
PROC: 0SPD0JZ Removal of Synthetic Substitute from Left Knee Joint, Open Approach (ICD-10-PCS; principal; 2020-02-06)
PROC: 0SRD0JZ Replacement of Left Knee Joint with Synthetic Substitute, Open Approach (ICD-10-PCS; principal; 2020-02-06)
DX: T84.023A Instability of internal left knee prosthesis, initial encounter (principal); I48.91 Unspecified atrial fibrillation; F41.9 Anxiety disorder, unspecified; F32.9 Major depressive disorder, single episode, unspecified; E03.9 Hypothyroidism, unspecified; K21.9 Gastro-esophageal reflux disease without esophagitis; E78.5 Hyperlipidemia, unspecified; I35.1 Nonrheumatic aortic (valve) insufficiency; R53.82 Chronic fatigue, unspecified; D64.9 Anemia, unspecified; Z88.0 Allergy status to penicillin; Z88.2 Allergy status to sulfonamides; Z86.711 Personal history of pulmonary embolism; Z88.8 Allergy status to other drugs, medicaments and biological substances; Q07.00 Arnold-Chiari syndrome without spina bifida or hydrocephalus; Z91.041 Radiographic dye allergy status; Z86.718 Personal history of other venous thrombosis and embolism; Z90.49 Acquired absence of other specified parts of digestive tract; Z86.73 Personal history of transient ischemic attack (TIA), and cerebral infarction without residual deficits

== ENCOUNTER → 2020-02-28 | Outpatient (CLI) | payer MEDICARE, BC ==
[~2020-02-28] MED LIST changes: +ELIQUIS5 MG PO; +LIDOPATCH1 EACH TOP; +OXYCODONE HCL 55 MG PO; +TRAMADOL 50 MG50 MG PO
--- NOTE | 2020-03-22 14:42 | PAINCON ---
[facility] [address] [place] [address] PAIN MANAGEMENT CONSULTATION Name: RAMON SAEZ Room: [facility].#: [id number] Admission: 02/28/20 Attend Phys: Lupis Collins MD Discharge: Date of : 67 Report #: [id number] THIS REPORT FOR: //name// cc: Dasha Hansen MD, Katrina MD ~ CC: Dasha Collins DATE OF SERVICE: 02/28/2020 CHIEF COMPLAINT: Chronic headache pain. HISTORY: The patient is a 54-year-old female who has been followed in the Pain Clinic. As you may recall, she has consistently had pain and discomfort because of chronic headaches. This has been ongoing for a number of years. She has undergone a left knee replacement. This was about 3 weeks ago. She has been using her medications of oxycodone as well as tramadol. Continues to have headaches. Feels that her pain is an 8/10 today. Notes that the weather pattern has changed. Overall, she has felt relatively "good for the last week." She saw an ENT doctor, who treated her for problems with her balance. She states that he had made some adjustments and treated her for some crystals in the middle ear area. She has returned today for renewal of her medications. ALLERGIES: PLASTIC TAPE, PAXIL, SULFA, IODINE, PENICILLIN, ORANGE FOOD COLORING. CURRENT MEDICATIONS: Advair 1 puff b.i.d., Topamax 75 mg b.i.d., hydrochlorothiazide 12.5 mg, Benadryl 50 mg p.r.n., Crestor 10 mg, potassium 20 mEq b.i.d., doxycycline 100 mg b.i.d., Zanaflex 4 mg t.i.d. for muscle spasms, Prozac 10 mg, Aimovig 140 mg subcutaneous monthly, Nexium 40 mg, Zyrtec 10 mg b.i.d., vitamin D 50,000 units, Synthroid 100 mcg, MiraLax 225 mg, Benefiber, acetaminophen 325 mg, vitamin B complex, vitamin C plus, Mili Hips 500 mg, Lasix 40 mg p.r.n., swelling, Ditropan XL 5 mg, Pseudoephedrine p.r.n., iron 5 mL replacement, calcium carbonate 500 mg, folic acid 1 mg, Coreg 3.125, Celebrex 200 mg, Cymbalta 60 mg b.i.d., Dilaudid 2 mg t.i.d., Ativan 0.5 mg for anxiety. PAIN CLINIC ASSESSMENT/PQRS: 1. The patient has some pain in her left knee, which has been replaced. She is healing well. 2. Osteoarthritis changes in her wrist. She is not being treated for rheumatoid arthritis. 3. Height 5 feet 3 inches, weight 208 pounds, BMI is 37. 4. Vital signs: Blood pressure 99/56, heart rate 70, respiratory rate 16, room air saturation 99%, temperature 97.0. 5. Pain intensity, 11/27. [address] [place] [address] PAIN MANAGEMENT CONSULTATION Name: RAMON SAEZ Room: [facility]#: [id number] Admission: 02/28/20 Attend Phys: Lupis Collins MD Discharge: Date of : 67 Report #: [id number] 6. Fall history: The patient has not fallen in the last 3 months. 7. Blood thinner. The patient is not on a blood thinning medication. 8. Hypertension. The patient is being treated for hypertension. 9. Opioids greater than 6 weeks. The patient received medication from the Pain Clinic. 10. Risk assessment tool, low for opioid use. 11. Functional assessment tool reviewed. 12. Recreational drug use: The patient denies. 13. Tobacco: The patient denies. 14. Alcohol: The patient rarely drinks alcoholic beverages. PHYSICAL EXAMINATION: GENERAL: The patient is a well-developed, well-nourished white female. Appears her stated age. She is alert and oriented x 3. She is accompanied by her . HEENT: Normocephalic, atraumatic. Extraocular eye muscles intact. Sclerae nonicteric. Mucous membranes are moist. The patient is wearing a mask. NECK: Without adenopathy or JVD. HEART: Regular rate. ABDOMEN: Nontender. MUSCULOSKELETAL: Without significant scoliosis, kyphosis or lordosis. The patient is having some difficulty swallowing foods. The patient has a well-healed scar from the left knee replacement. SKIN: Port-A-Cath in place. IMPRESSION: 1. Chronic headaches. 2. History of Arnold-Chiari syndrome, possible lupus. 3. Anterior cervical fusion, C6/C5. 4. History of aortic insufficiency. 5. Hypothyroidism. 6. Hypertension. 7. Asthma. 8. Chronic anemia. 9. Morbid obesity. 10. Osteoarthritis changes in her knee, left knee being replaced. 11. Chronic fatigue syndrome with Eve-Pathak titer in the past. 12. Cervical and ventral disk protrusion at C3, C4, C5. RECOMMENDATIONS: We discussed treatment options with the patient. At this juncture, we will continue with her medication. Overall, she feels that things are going reasonably well. She recently had the left knee replaced. She did relatively well. We will continue with her medications of hydromorphone 2 mg 1 p.o. t.i.d. The patient will continue with clonazepam. She will use Cymbalta 60 mg b.i.d. The patient will also continue with oxycodone 5 one p.o. p.r.n. for pain, total of 40. The patient will call us if [place] has [place] [address] PAIN MANAGEMENT CONSULTATION Name: RAMON SAEZ Room: [facility]#: [id number] Admission: 02/28/20 Attend Phys: Lupis Collins MD Discharge: Date of : 67 Report #: [id number] script has been sent to her pharmacy. She is aware that opioid medications can become less effective. She is able to think clearly with their use. We would like to thank you for letting us participate in her care. We hope she continues to improve. <ELECTRONICALLY SIGNED> By: Lupis Collins MD 03/22/20 1442 [id number] [id number]. Freeman Collins MD /nt
== END ==
LOC: M.PC 09:10
PROVIDERS: ATTEND Anesthesiology Pain Medicine
DX: R51.9 Headache, unspecified (principal); G89.29 Other chronic pain

== ENCOUNTER → 2020-04-24 | Outpatient (CLI) | payer MEDICARE, BC | LOC: M.PC 09:00 | PROVIDERS: ATTEND Anesthesiology Pain Medicine | DX: R51.9 Headache, unspecified (principal); G89.29 Other chronic pain; M25.512 Pain in left shoulder; J45.909 Unspecified asthma, uncomplicated; E66.01 Morbid (severe) obesity due to excess calories; R53.83 Other fatigue; E03.9 Hypothyroidism, unspecified; I10 Essential (primary) hypertension; D64.9 Anemia, unspecified; M50.20 Other cervical disc displacement, unspecified cervical region; M43.22 Fusion of spine, cervical region; Z86.79 Personal history of other diseases of the circulatory system; Q07.00 Arnold-Chiari syndrome without spina bifida or hydrocephalus ==

== ENCOUNTER 2020-04-29 10:05 | Emergency (ER) | payer MEDICARE, BC ==
[~2020-04-29] VITALS: Ht 160 cm; Wt 90.7 kg
[2020-04-29 12:37] VITALS: BP 107/66
== END 2020-04-29 12:38 | disposition home or self-care (01) ==
LOC: M.ERS 10:05
DX: S93.402A Sprain of unspecified ligament of left ankle, initial encounter (principal); I48.91 Unspecified atrial fibrillation; J45.909 Unspecified asthma, uncomplicated; I10 Essential (primary) hypertension; E03.9 Hypothyroidism, unspecified; K21.9 Gastro-esophageal reflux disease without esophagitis; Z90.49 Acquired absence of other specified parts of digestive tract; Z86.73 Personal history of transient ischemic attack (TIA), and cerebral infarction without residual deficits; Z79.899 Other long term (current) drug therapy; Z88.2 Allergy status to sulfonamides; Z88.0 Allergy status to penicillin; Z88.8 Allergy status to other drugs, medicaments and biological substances; Z91.018 Allergy to other foods; W10.9XXA Fall (on) (from) unspecified stairs and steps, initial encounter; Y93.89 Activity, other specified; Y92.89 Other specified places as the place of occurrence of the external cause; Y99.8 Other external cause status

== ENCOUNTER → 2020-06-19 | Outpatient (CLI) | payer MEDICARE, BC | LOC: M.PC 09:10 | PROVIDERS: ATTEND Anesthesiology Pain Medicine | DX: R51.9 Headache, unspecified (principal); G89.29 Other chronic pain; M25.512 Pain in left shoulder; M50.30 Other cervical disc degeneration, unspecified cervical region; R53.83 Other fatigue; M19.90 Unspecified osteoarthritis, unspecified site; E66.9 Obesity, unspecified; D64.9 Anemia, unspecified; J45.909 Unspecified asthma, uncomplicated; I10 Essential (primary) hypertension; E03.9 Hypothyroidism, unspecified; M43.22 Fusion of spine, cervical region; Z86.79 Personal history of other diseases of the circulatory system ==

== ENCOUNTER 2020-08-11 19:36 | Inpatient (IN) | payer MEDICARE, BC ==
[2020-08-11] VITALS (9 sets, daily range): BP systolic 82–129; BP diastolic 32–69
[~2020-08-11] VITALS: Ht 152.4 cm; Wt 88.5 kg
[~2020-08-11 19:36] MED LIST changes: +PROZAC10 M1 PO; -PROZAC10 MG PO
[2020-08-11] MEDS ORDERED: PREDNISONE 20 M20 MG PO (19:47)
[2020-08-11] MEDS ORDERED: SINGULAIR 10 MG10 M1 PO (19:48)
[2020-08-11 21:27] LABS: HEMATOCRIT 37.7 % (37.0-47.0); HEMOGLOBIN 12.3 gm/dL (12.0-15.0); MCH 30.1 pg (26.0-34.0); MCHC 32.6 g/dL (28.0-37.0); MCV 92.4 fL (80.0-100.0); MPV 8.9 fl. (7.2-11.1); NUCLEATED RBCS 0 /100WBC; PLATELET COUNT* 172 thou/uL (150-400); RBC 4.08 mil/uL (4.20-5.00); RDW-CV 13.8 % (10.5-14.5); WBC 8.9 thou/uL (4.0-11.0)
[2020-08-11 21:45] LABS: CALCIUM 8.1 mg/dL (8.5-10.1); CREATININE 0.8 mg/dL (0.6-1.3); POTASSIUM 3.8 mmol/L (3.5-5.1)
[2020-08-11 21:50] LABS: ALBUMIN 2.6 g/dL (3.4-5.0); TOTAL BILIRUBIN 0.4 mg/dL (<0.1-1.0); TOTAL PROTEIN 5.9 g/dL (6.4-8.2)
[2020-08-11 22:38] LABS: ABSOLUTE LYMPHOCYTES 0.5 thou/uL (0.8-5.3); ABSOLUTE MONOCYTES 0.1 thou/uL (0.0-1.2); ABSOLUTE NEUTROPHILS 8.3 thou/uL (1.6-8.1)
[2020-08-11 22:39] LABS: PLATELET ESTIMATE ADEQUATE
[2020-08-11 23:15] LABS: BE -6.1 mmol/L (-2 to +3); PCO2 41.9 mmHg (35.0-45.0); PO2 61.5 mmHg (75.0-100.0)
[2020-08-11 23:20] LABS: pH 7.298 (7.340-7.450)
[2020-08-12] VITALS (77 sets, daily range): BP systolic 95–143; BP diastolic 29–80
[2020-08-12 02:24] LABS: BE -4.5 mmol/L (-2 to +3); PCO2 44.4 mmHg (35.0-45.0); pH 7.307 (7.340-7.450)
[2020-08-12 06:01] LABS: HEMATOCRIT 38.7 % (37.0-47.0); HEMOGLOBIN 12.5 gm/dL (12.0-15.0); MCH 29.7 pg (26.0-34.0); MCHC 32.2 g/dL (28.0-37.0); MCV 92.3 fL (80.0-100.0); MPV 8.6 fl. (7.2-11.1); RBC 4.2 mil/uL (4.20-5.00); RDW-CV 14.1 % (10.5-14.5); WBC 6.5 thou/uL (4.0-11.0)
[2020-08-12 06:10] LABS: CALCIUM 7.9 mg/dL (8.5-10.1); CREATININE 0.7 mg/dL (0.6-1.3); MAGNESIUM 1.9 mg/dL (1.8-2.4); POTASSIUM 4.5 mmol/L (3.5-5.1)
--- NOTE | 2020-08-12 06:13 | NUR ---
RECEIVED PATIENT REPORT FROM ER NURSE. PATIENT BROUGHT TO UNIT AT 2212. PATIENT ORIENTED TO UNIT, ROOM, BED, CALL-LIGHT, AND HOSPITAL POLICY. ASSESSMENTS COMPLETED CHARTED. CARDIAC MONITORING IN PLACE. PATIENT ABG RESULTS CALLED TO DR. DUGAN. NEW ORDERS RECEIVED AND FOLLOWED. MEDICATIONS GIVEN, SEE EMAR FOR DETAILS. HOURLY ROUNDING IN PLACE FOR PATIENT SAFETY. BED LOCKED AND IN LOWEST POSITION. CLWR.
[2020-08-12 13:22] LABS: APTT 29.4 Seconds (25.0-31.3); PROTIME 10.6 Seconds (9.20-11.50)
[2020-08-12 18:55] LABS: CALCIUM 8.4 mg/dL (8.5-10.1); CREATININE 0.7 mg/dL (0.6-1.3); MAGNESIUM 2.5 mg/dL (1.8-2.4); POTASSIUM 3.8 mmol/L (3.5-5.1)
--- NOTE | 2020-08-12 19:03 | NUR ---
PT RESTED MOST OF THE DAY BUT WOULD BECOME SHORT OF AIR WITH JUST MIN MOVEMENT OR TALKING FINALLY UP TO 100% AGAIN 45L ON HI AZIZA C/O PAIN MAINLY OF NECK, BACK, AND HEAD AREA MORPHINE SEEMS TO HELP FC INSERTED WITH IMMEDIATE RETURN CLEAR YELLOW URINE CALL LIGHT IN REACH
[2020-08-13] VITALS (91 sets, daily range): BP systolic 87–164; BP diastolic 34–88
[2020-08-13 05:23] LABS: ABSOLUTE LYMPHOCYTES 0.8 thou/uL (0.8-5.3); ABSOLUTE MONOCYTES 0.3 thou/uL (0.0-1.2); ABSOLUTE NEUTROPHILS 8.8 thou/uL (1.6-8.1); BASOPHILS 0.1 %; HEMATOCRIT 37.1 % (37.0-47.0); LYMPHOCYTES 8.5 %; MCH 29.8 pg (26.0-34.0); MCHC 32.2 g/dL (28.0-37.0); MCV 92.5 fL (80.0-100.0); MONOCYTES 3.1 %; MPV 8.8 fl. (7.2-11.1); NUCLEATED RBCS 0 /100WBC; PLATELET COUNT* 181 thou/uL (150-400); POLYS 88.3 %; RBC 4.01 mil/uL (4.20-5.00); RDW-CV 13.9 % (10.5-14.5); WBC 9.9 thou/uL (4.0-11.0)
[2020-08-13 05:33] LABS: ALBUMIN 2.4 g/dL (3.4-5.0); CALCIUM 8.3 mg/dL (8.5-10.1); CREATININE 0.7 mg/dL (0.6-1.3); POTASSIUM 4.4 mmol/L (3.5-5.1); TOTAL BILIRUBIN 0.3 mg/dL (<0.1-1.0); TOTAL PROTEIN 5.9 g/dL (6.4-8.2)
--- NOTE | 2020-08-13 09:29 | NUR ---
In[facility]: [facility] on 07/30/20.
--- NOTE | 2020-08-13 15:08 | NUR ---
PLAN OF CARE: PT COVID POSITIVE. PT ON 55L HEATED HIGH FLOW O2, AND 100% FIO2. CM ASSESSMENT: CM CONTACTED PT'S SPOUSE TO COMPLETE CM ASSESSMENT. PT'S SPOUSE INFORMS THAT THE PT. IS NORMALLY INDEPENDENT WITH ADL'S, BUT HE ASSIST HER IF NEEDED. PT OWNS A WALKER AND USES IT WHEN HER KNEE IS BOTHERING HER. PT HAS PAST HX OF HH WITH SPECIALIZED HOME CARE. PT HAS PAST HX OF SNF. CM WILL REMAIN AVAILABLE TO ASSIST AND FOLLOW NEEDED.
--- NOTE | 2020-08-13 16:21 | EKG ---
[place] [address] ELECTROCARDIOGRAM REPORT Name: RAMON SAEZ Room: [address] ADM IN M.R.#: [id number] Admission: 08/11/20 Attend Phys: Radha Wilkinson Discharge: Date of : 67 Date of Service: 08/11/202114 Report #: [id number] THIS REPORT FOR: //name// [facility] ED Test Date: 2020-08-11 Test Time: 21:15:37 Pat Name: RAMON SAEZ Department: Room: [address] Gender: F Marketing Consultant: JOHNNIE : 1965 Requested By: Luz Sloan Order Number: [id number] Tomi MD: Eligio Mejia Measurements Intervals [place] Rate: 69 P: 29 [place]: 133 QRS: 50 QRSD: 99 T: 50 QT: 429 QTc: 460 Interpretive Statements Sinus rhythm Compared to ECG 01/31/2020 11:51:19 No significant changes Electronically Signed On 08-13-2020 16:21:08 CDT by Eligio Mejia [email or web address] <ELECTRONICALLY SIGNED> By: Eligio Mejia MD, [facility] 08/13/20 1621 14 14 Eligio eMjia MD, [facility] /EPI
--- NOTE | 2020-08-13 17:14 | 2DMMODE ---
[place] [address] 2 D/M-MODE ECHOCARDIOGRAM Name: RAMON SAEZ Room: [address] ADM IN .[place].#: [id number] Admission: 08/11/20 Attend Phys: Radha Wilkinson Discharge: Date of : 67 Date of Service: 08/13/20 1714 Report #: [id number] THIS REPORT FOR: cc: Olivia Herrmann,Olivia Babcock,Eligio Wilcox MD [facility] ~ APPROVED REPORT Study performed: 08/13/2020 14:45:07 EXAM: Comprehensive 2D, Doppler, and color-flow Echocardiogram Patient Location: In-Patient Room #: 002 Status: routine BSA: 1.93 HR: 67 bpm BP: 114/60 mmHg Rhythm: NSR Other Information Study Quality: Good Indications Dyspnea 2D Dimensions IVSd: 11.84 (7-11mm) LVOT Diam: 20.27 (18-24mm) LVDd: 50.10 mm PWd: 9.87 (7-11mm) Ascending Ao: 29.24 (22-36mm) LVDs: 27.53 (25-40mm) Aortic Root: 29.70 mm Volumes Left Atrial Volume (Systole) LA ESV Index: 30.10 mL/m2 Aortic Valve AoV Peak Balaji.: 1.42 m/s AO Peak Gr.: 8.04 mmHg LVOT Max P.28 mmHg AO Mean Gr.: 4.18 mmHg LVOT Mean P.44 mmHg LVOT Max V: 1.15 m/s AO V2 VTI: 31.59 cm LVOT Mean V: 0.71 m/s SHARRI (VTI): 2.78 cm2 LVOT V1 VTI: 27.23 [place] [address] 2 D/M-MODE ECHOCARDIOGRAM Name: RAMON SAEZ Room: [address] IN ..#: [id number] Admission: 08/11/20 Attend Phys: Radha Wilkinson Discharge: Date of : 67 Date of Service: 08/13/20 1714 Report #: [id number] Mitral Valve E/A Ratio: 1.46 MV Decel. Time: 213.41 ms MV E Max Balaji.: 0.94 m/s MV PHT: 61.89 ms MVA (PHT): 3.55 cm2 TDI E/Lateral E': 8.55 E/Medial E': 8.55 Medial E' Balaji.: 0.11 m/s Lateral E' Balaji.: 0.11 m/s Pulmonary Valve PV Peak Balaji.: 0.97 m/s PV Peak Gr.: 3.73 mmHg Tricuspid Valve RAP Estimate: 5.00 mmHg TR Peak Gr.: 29.89 mmHg RVSP: 34.00 mmHg PA Pressure: 34.00 mmHg Left Ventricle The left ventricle is normal size. There is normal LV segmental wall motion. There is normal left ventricular wall thickness. Left ventricular systolic function is normal. The left ventricular ejection fraction is within the normal range. LVEF is 55-60%. The left ventricular diastolic function is normal. Right Ventricle The right ventricle is normal size. The right ventricular systolic function is normal. Atria Left atrium is mildly dilated. The right atrium size is normal. Aortic Valve The aortic valve is normal in structure. Mild aortic regurgitation. There is no aortic valvular stenosis. Mitral Valve The mitral valve is normal in structure. Mild mitral regurgitation. No evidence of mitral valve stenosis. Tricuspid Valve The tricuspid valve is normal in structure. Mild tricuspid regurgitation. estimated pa pressure 40 [place] [address] 2 D/M-MODE ECHOCARDIOGRAM Name: RAMON SAEZ Room: [address] IN [facility]#: [id number] Admission: 08/11/20 Attend Phys: Radha Wilkinson Discharge: Date of : 67 Date of Service: 08/13/20 1714 Report #: [id number] Pulmonic Valve The pulmonary valve is normal in structure. There is no pulmonic valvular regurgitation. Great Vessels The aortic root is normal in size. IVC is normal in size and collapses >50% with inspiration. Pericardium There is no pericardial effusion. <Conclusion> LVEF is 55-60%. Left atrium is mildly dilated. Mild aortic regurgitation. Mild mitral regurgitation. Mild tricuspid regurgitation. estimated pa pressure 40 mm Hg <ELECTRONICALLY SIGNED> By: Eligio Mejia MD, [facility] 08/13/201713 13 13 Eligio Mejia MD, FACC /INF
[2020-08-14] VITALS (61 sets, daily range): BP systolic 90–159; BP diastolic 44–119
[2020-08-14 05:19] LABS: ABSOLUTE MONOCYTES 0.3 thou/uL (0.0-1.2); ABSOLUTE NEUTROPHILS 5.4 thou/uL (1.6-8.1); HEMATOCRIT 37.6 % (37.0-47.0); HEMOGLOBIN 12.2 gm/dL (12.0-15.0); LYMPHOCYTES 15.1 %; MCH 29.7 pg (26.0-34.0); MCHC 32.5 g/dL (28.0-37.0); MCV 91.4 fL (80.0-100.0); MPV 8.3 fl. (7.2-11.1); NUCLEATED RBCS 0 /100WBC; PLATELET COUNT* 206 thou/uL (150-400); POLYS 79.9 %; RBC 4.11 mil/uL (4.20-5.00); RDW-CV 13.8 % (10.5-14.5); WBC 6.7 thou/uL (4.0-11.0)
[2020-08-14 05:35] LABS: ALBUMIN 2.7 g/dL (3.4-5.0); CALCIUM 8.9 mg/dL (8.5-10.1); CREATININE 0.8 mg/dL (0.6-1.3); TOTAL BILIRUBIN 0.5 mg/dL (<0.1-1.0); TOTAL PROTEIN 6.8 g/dL (6.4-8.2)
--- NOTE | 2020-08-14 12:43 | NUR ---
Plan of Care: Continue decadron, on remdesivir and recieved 2 doses of plasma earlier today. Continue IV Abx and plan is to transition to PO. Titrate 02. Currently 45L HFNC. Patient requesting a large amount of pain meds and patient reached out to patient advocate for support. Provider aware. Patient may need home 02 support at discharge. CM to continue to follow for safe dc planning.
--- NOTE | 2020-08-14 19:19 | NUR ---
REPORT RECEIVED FROM [facility]
[2020-08-15] VITALS (28 sets, daily range): BP systolic 90–131; BP diastolic 49–75
[2020-08-15 03:04] LABS: HEMATOCRIT 38.7 % (37.0-47.0); HEMOGLOBIN 12.7 gm/dL (12.0-15.0); MCH 30.2 pg (26.0-34.0); MCHC 32.9 g/dL (28.0-37.0); MCV 91.7 fL (80.0-100.0); NUCLEATED RBCS 0 /100WBC; PLATELET COUNT* 233 thou/uL (150-400); RBC 4.21 mil/uL (4.20-5.00); RDW-CV 13.9 % (10.5-14.5); WBC 9.1 thou/uL (4.0-11.0)
[2020-08-15 03:25] LABS: ALBUMIN 2.7 g/dL (3.4-5.0); CALCIUM 8.3 mg/dL (8.5-10.1); CREATININE 0.9 mg/dL (0.6-1.3); MAGNESIUM 1.8 mg/dL (1.8-2.4); POTASSIUM 3.9 mmol/L (3.5-5.1); TOTAL BILIRUBIN 0.5 mg/dL (<0.1-1.0); TOTAL PROTEIN 6.7 g/dL (6.4-8.2)
[2020-08-15 04:41] LABS: ABSOLUTE LYMPHOCYTES 1.4 thou/uL (0.8-5.3); ABSOLUTE MONOCYTES 0.2 thou/uL (0.0-1.2); ABSOLUTE NEUTROPHILS 7.6 thou/uL (1.6-8.1); ATYPICAL LYMPHS 1 %
[2020-08-15 04:42] LABS: PLATELET ESTIMATE ADEQUATE
--- NOTE | 2020-08-15 05:50 | NUR ---
PT HAS HAD A GOOD NIGHT, PT HAS SLEPT SOME TONIGHT. C/O PAIN HAS DECREASED SINCE FIRST OF SHIFT. PT REMAINS ON HF O2 45L ABS 55% FIO2. PT IS TOLERATING WELL AT THIS TIME. DAVIES INTACT AND PATENT DRAINING YELLOW URINE TO BEDSIDE BAG. MONITORS INTACT. PT REMAINS IN ENHANCED PRECAUTIONS AT THIS TIME.
--- NOTE | 2020-08-15 13:36 | NUR ---
Continues to need heated high flow NC at 45%. Plan is to titrate 02. Switched to PO abx. Patient frequently requesting morphine, dilaudid, oxycodone and ativan to sleep. Dr. Valadez aware. Therapies ordered today to determine physical abilities for a safe dc plan. Patient may need HH vs. Rehab (debility) and posssible O2 at discharge. Spoke to Jae to advise him of the plan of care. Jae would like patient to have HH because he believes she needs the extra support when she comes home. Per Jae, there are 2 steps to come into their house and the patient mentioned to him that she may need a new walker. As mentioned in previous notes, patient was independently with ADLs and was able to drive. Patient has a hx of O2 needs (several years ago) and patient currently goes to the infusion clinic at in [place] for nanda cath maintenance and occasionally IV iron. No hx of dialysis or behavioral health services and past hx of rehab when patient had knee replaced. PCP name is Dr. Herrmann at [facility] in . Does currently have DPOA paperwork and he will bring to hospital or will complete new paperwork based on patient's request. Advised him that as long as patient is coherent and willing to sign new paperwork then we can do so in the hospital. Jae verbalized understanding. Jae also asked if nursing can update the authorized contact list. He would like to remove Philomena (friend who use to help patient) and add dtrs Jacquelin Kilpatrick/Antoinette Urena and mother Marline Sweeney. Nursing made aware. Jae also stated that he was told my nursing that patient will transfer for tele. Will confirm with Nurse and update Jae. Provided CM contact information. Will continue to follow for safe dc planning. Jae Kilpatrick (/DPOA) [phone]
--- NOTE | 2020-08-15 16:34 | NUR ---
Pt had no adverse events this shift. Pt transferred to regular high flow NC. No longer on heated high flow and tolerating really well. O2 sat remains >95. Pt has had decreased pain with new pain prn. No other complaints at this time. Will report to rn night.
--- NOTE | 2020-08-15 23:36 | CON ---
[address] [address] CONSULTATION Name: RAMON SAEZ Room: [address] IN M.R.#: [id number] Admission: 08/11/20 Attend Phys: Charmaine Rodriguez Discharge: Date of : 67 Report #: [id number] THIS REPORT FOR: cc: Olivia Herrmann Linda J. DO Pervez, Adeel MD ~ DOC #: [id number] Ky Milligan MD DATE OF CONSULTATION: 08/12/2020 CONSULTATION REQUESTED BY: Dr. Israel. INDICATION FOR CONSULTATION: Acute hypoxemic respiratory failure secondary to COVID. HISTORY OF PRESENT ILLNESS: A 54-year-old female who has an extensive past medical history which includes a history of lupus. She in fact does have a Port-A-Cath in place as well, the indication for which is not fully apparent. She has had DVT and pulmonary emboli in the past and is on anticoagulation with Eliquis long-term. She does have morbid obesity with a body mass index of 42 and appears to have previously undiagnosed obstructive sleep apnea. She has had gastric bypass in the past. The patient however has no known history of smoking. The patient is now admitted with acute shortness of breath. She also has had a cough. There is not much sputum. Initially, she was reported to be wheezing. The patient earlier did have some green sputum as well. She complains of pain and aches all over. However, no specific complaint of chest pain. She did not specifically say that she had fever or chills. She did not complain of any nasal discharge. She does have some swelling of lower extremities. The patient is limited in answering questions to review of systems. The patient however answered with negative for a 12-point review of systems except as mentioned above. The patient at this time is on a heated high-flow nasal cannula with 85% FiO2 and 45 liters flow. She is saturating only in the low 90s. The patient overnight was hypotensive and did receive IV fluid boluses. The patient's blood pressure currently is in the normal range. The patient does have considerable bandemia on her CBC with bands at 25%. The patient however has a normal WBC count and her BUN and creatinine in fact are normal. PAST MEDICAL HISTORY: An extensive past medical history, DVT, pulmonary emboli, atrial fibrillation, long-term anticoagulation with Eliquis. The last available echocardiogram from 2 years ago shows a left ventricular ejection fraction around 40-45%. She is also reported to have had [place] [address] CONSULTATION Name: RAMON SAEZ Room: [address] IN M.R.#: [id number] Admission: 08/11/20 Attend Phys: Charmaine Rodriguez Discharge: Date of : 67 Report #: [id number] no elevation in right heart pressures. Morbid obesity still body mass index is 42. She has had gastric bypass in the past. Lupus, hypertension, depression, anxiety, Arnold-Chiari syndrome, dyslipidemia, TIAs, hypothyroidism, gastroesophageal reflux disease. PAST SURGICAL HISTORY: Appendectomy, cholecystectomy, surgery on the cervical spine, brain surgery x 2, right foot surgery, left knee surgery. HOME MEDICATIONS: List in [employer] reviewed. Amongst other medications noted, the patient is on significant amounts of narcotics. The patient also does take clonazepam at home and is on Eliquis, also reported to be on Nexium long-term. CURRENT MEDICATIONS: [facility] reviewed. ALLERGIES: REPORTED TO BE ALLERGIC TO IODINE, ORANGE FOOD COLOR, PENICILLIN; however, she has previously tolerated cefepime without problems. PLASTIC TAPE, SULFA, PAROXETINE AND OCUFLOX EYE DROPS. SOCIAL HISTORY: There is no known history of smoking, ethanol abuse, or drug abuse. FAMILY HISTORY: There is no pertinent family history. PHYSICAL EXAMINATION: GENERAL: The patient was drowsy, but was arousable. VITAL SIGNS: Was saturating 94%. She is on 45 liters of oxygen via high flow nasal cannula. She is on 85% FiO2, O2 saturation 93-94. Blood pressure 133/77, respiratory rate was around 30 with a pulse of 66. Body mass index is elevated to 42. HEENT: Head is normocephalic and atraumatic. Mucous membranes do appear to be moist. She has a narrow airway. NECK: Does not show raised JVP asymmetry, mass or lymph nodes. CHEST: Symmetrical expansion on inspection and palpation. On auscultation, breath sounds are bilaterally equal, but decreased. I do not hear any added sounds. HEART: Regular. There is no murmur. ABDOMEN: Soft and nontender. EXTREMITIES: Lower extremities do show 1+ edema bilaterally. There is no calf tenderness. SKIN: Dry and intact. NEUROLOGIC: She did move all extremities bilaterally equally and spontaneously with no focal deficit identified. LABORATORY DATA: The patient's chest [place] [address] CONSULTATION Name: RAMON SAEZ Room: [address] ADM IN [place].#: [id number] Admission: 08/11/20 Attend Phys: Charmaine Rodriguez Discharge: Date of : 67 Report #: [id number] bilaterally consistent with ARDS secondary to COVID-19. The patient's lab work is in [facility] and this is reviewed. Arterial blood gases in [facility] also reviewed. The patient does have a metabolic acidosis, is also hypoxemic. ASSESSMENT AND PLAN: 1. Acute hypoxemic respiratory failure secondary to COVID 19. At this time, we will continue to titrate her oxygen. The patient does have morbid obesity and appears to have underlying obstructive sleep apnea. We will therefore add BiPAP in AVAPS mode while asleep and p.r.n. 2. COVID-19. I gave her one dose of Solu-Medrol and started with dexamethasone 6 mg daily. We also started with remdesivir. Considering significant hypoxemia, I recommend proceeding with giving her a dose of Actemra as well. As I am told that Actemra may not be available until tomorrow morning, I will go ahead and give her an additional dose of dexamethasone now. I also will go ahead and give her a unit of convalescent plasma. We will reassess this evening as to whether a second unit of convalescent plasma should also be administered. We will follow LFTs closely while she is on remdesivir. 3. Pulmonary infiltrates/acute respiratory distress syndrome. More cultures and serologies are ordered. The patient currently is on aztreonam and Levaquin. She is able to tolerate cephalosporins and therefore potentially if indicated, aztreonam could be switched over to cefepime; however, my suspicion of gram-negative organisms resistant to Levaquin is low; therefore, I did not make any change at this time, we will follow along. If she gets better, we will be inclined to discontinue aztreonam in the next day or two. The patient does however have significant bandemia and is also hypoxemic and therefore pending further evaluation, I did go ahead and order the vancomycin. If the patient's condition improves and MRSA studies are negative, then I will be inclined to discontinue vancomycin after 48 hours. We will plan to continue Levaquin for the next 1 week. Note that the patient does have IV access with a Port-A-Cath. 4. Fluid overload. At this time, the patient appears to be fluid overloaded. I will go ahead and give her one dose of Lasix now. We will go ahead and give her another dose of Lasix after she has had plasma. We will repeat labs this evening and then see where we stand. Replacement of magnesium is also ordered. 5. History of deep venous thrombosis and pulmonary embolism. I ordered a D-dimer, also ordered a C-reactive protein, but at this time, I feel that we should continue with anticoagulation. If she is able to take p.o., we will in fact increase the dose of Eliquis and give her 5 mg p.o. b.i.d. In case there is doubt about oral intake, I will be inclined to give her Lovenox. 6. History of lupus. 7. History of narcotic and benzodiazepine use at home. 8. Gastroesophageal reflux disease. We will continue PPI. 9. History of Arnold-Chiari syndrome. 10. Past medical history of atrial fibrillation. [facility] [address] [place] [address] CONSULTATION Name: RAMON SAEZ Room: [address] IN M.R.#: [id number] Admission: 08/11/20 Attend Phys: Charmaine Rodriguez Discharge: Date of : 67 Report #: [id number] The patient is critically ill at this time. Total time spent providing critical care to this patient today exceeds 45 minutes. MD ERIC Rolle/GILBERTO <ELECTRONICALLY SIGNED> By: Ky Milligan MD 08/15/20 2336 1111 2059Aaicha Milligan MD /nt
[2020-08-16] VITALS (7 sets, daily range): BP systolic 96–144; BP diastolic 45–76
[2020-08-16 04:01] LABS: ALBUMIN 2.9 g/dL (3.4-5.0); CREATININE 0.8 mg/dL (0.6-1.3); MAGNESIUM 2.1 mg/dL (1.8-2.4); POTASSIUM 3.4 mmol/L (3.5-5.1); TOTAL BILIRUBIN 0.6 mg/dL (<0.1-1.0); TOTAL PROTEIN 6.9 g/dL (6.4-8.2)
[2020-08-16 04:03] LABS: ABSOLUTE EOSINOPHILS 0.1 thou/uL (0.0-0.7); ABSOLUTE LYMPHOCYTES 2.4 thou/uL (0.8-5.3); ABSOLUTE MONOCYTES 0.6 thou/uL (0.0-1.2); ABSOLUTE NEUTROPHILS 7.3 thou/uL (1.6-8.1); BASOPHILS 0.1 %; HEMATOCRIT 40.9 % (37.0-47.0); HEMOGLOBIN 13.2 gm/dL (12.0-15.0); LYMPHOCYTES 22.9 %; MCH 29.7 pg (26.0-34.0); MCHC 32.3 g/dL (28.0-37.0); MCV 91.7 fL (80.0-100.0); MONOCYTES 6.2 %; MPV 8.1 fl. (7.2-11.1); NUCLEATED RBCS 0 /100WBC; PLATELET COUNT* 271 thou/uL (150-400); POLYS 69.8 %; RBC 4.46 mil/uL (4.20-5.00); RDW-CV 13.4 % (10.5-14.5); WBC 10.5 thou/uL (4.0-11.0)
--- NOTE | 2020-08-16 06:25 | NUR ---
ASSUMED PATIENT CARE AT 1900. PATIENT RESTING IN BED. ON 4LO2 THIS AM. ALERT AND ORIENTED TIMES FOUR. MINOR COMPLAINTS OF PAIN, CONTROLLED WITH ORAL MEDICATION. PRODUCTION SKI REPAIRER COMPLETED DOCUMENTED.
--- NOTE | 2020-08-16 11:58 | NUR ---
PLAN OF CARE: PT NOW MED SURG STATUS. PT CURRENTLY ON 3L O2. PT/OT EVALS PENDING. PHYSICIAN HAD PLANNED FOR PT TO GO TO INPT REHAB HERE AT D/C. HOWEVER INPT DNA SEQUENCING ASSOCIATE INFORMS THAT INPT REHAB HERE AT THIS FACILITY IS NOT AT OPTION THEY DO NOT ACCEPT COVID POSITIVE PT'S. CM TO DISCUSS THIS WITH THE PT. CM WILL REMAIN AVAILABLE TO ASSIST AND FOLLOW NEEDED.
--- NOTE | 2020-08-16 17:59 | NUR ---
Pt had no acute changes this shift. Pt up in chair and to the bsc today. Steady ambulation. Down to 3 LPM nc. Pt co pain, somewhat relieved with prn meds. Pt sleeping on and off this shift. Will report to fast food shift lead.
[2020-08-17 08:00] VITALS: BP 98/62
[2020-08-17 08:40] LABS: ALBUMIN 3.1 g/dL (3.4-5.0); CALCIUM 9.2 mg/dL (8.5-10.1); CREATININE 0.8 mg/dL (0.6-1.3); POTASSIUM 3.1 mmol/L (3.5-5.1); TOTAL BILIRUBIN 0.6 mg/dL (<0.1-1.0); TOTAL PROTEIN 6.9 g/dL (6.4-8.2)
[2020-08-17 12:37] VITALS: BP 98/62
--- NOTE | 2020-08-17 12:48 | NUR ---
Spoke with Dr. Souza who stated that patient is stable for discharge today to home with . Ordered PT, OT and Nursing. Referral sent to [facility] with Katya NINO. Katya NINO does accept COVID-19 patients. Patient no longer requiring O2 support and is currently on RA. Nurse to discuss COVID-19 home instructions at discharge and nurse made aware of current plan of care. Jae and patient made aware of the above information. No other CM needs noted at this time. Katya NINO PH: [phone] [address] [facility], [place] [address]
--- NOTE | 2020-08-17 13:36 | NUR ---
[facility] Nurse Transition Navigator Bedside Assessment Note: Patient a/o, says on way but he knows she is having HH. Patient A/O xs 3, says she is familiar with HH as she had a brain tumor/surgery and many health results related to that. Reports having been near and on hospice at one time> Patient has been weane off of oxygen, is able to move around without assistane. is her caregiver and understands her needs. She has 2 new Rxs that they will clam picker on way home today. She will have her meds ready for nurse review and she will expect a call this evening to set time for SOC.
--- NOTE | 2020-08-17 14:11 | NUR ---
PT DISCHARGED HOME WITH AT THIS TIME. PT STATES UNDERSTANDING TO ALL EDUCATION PROVIDED. PT PACKED OWN BELONGINGS, THIS RN CHECKED THE ROOM TO ENSURE NOTHING WAS LEFT BEHIND. PT WEARING HER GLASSES, DENIES ALL OTHER ASSISTIVE DEVICES. PT HAD CELL PHONE AND ROUTE SERVICE REPRESENTATIVE IN HAND. NO S/S DISTRESS, PT IN GOOD SPIRITS AND STATES SHE IS HAPPY TO BE GOING HOME. ASKED THIS RN TO THANK ALL STAFF FOR HER EXCELLENT CARE.
== END 2020-08-17 14:15 | disposition home health service (06) | DRG 177 ==
LOC: M.ERS 19:36 → M.ICU 21:05 → M.TBA-ER 21:05 → M.ICU 22:07
PROVIDERS: Emergency Medicine; Internal Medicine; Internal Medicine Critical Care Medicine; ADMIT Internal Medicine; ATTEND Internal Medicine
PROC: 5A0935A Assistance with Respiratory Ventilation, Less than 24 Consecutive Hours, High Flow/Velocity Cannula (ICD-10-PCS; principal; 2020-08-11)
PROC: XW033E5 Introduction of Remdesivir Anti-infective into Peripheral Vein, Percutaneous Approach, New Technology Group 5 (ICD-10-PCS; 2020-08-12)
PROC: 5A0945A Assistance with Respiratory Ventilation, 24-96 Consecutive Hours, High Flow/Velocity Cannula (ICD-10-PCS; 2020-08-12)
PROC: XW13325 Transfusion of Convalescent Plasma (Nonautologous) into Peripheral Vein, Percutaneous Approach, New Technology Group 5 (ICD-10-PCS; 2020-08-12)
PROC: XW033H5 Introduction of Tocilizumab into Peripheral Vein, Percutaneous Approach, New Technology Group 5 (ICD-10-PCS; 2020-08-12)
PROC: 5A0935A Assistance with Respiratory Ventilation, Less than 24 Consecutive Hours, High Flow/Velocity Cannula (ICD-10-PCS; 2020-08-15)
PROC: 5A0935A Assistance with Respiratory Ventilation, Less than 24 Consecutive Hours, High Flow/Velocity Cannula (ICD-10-PCS; 2020-08-16)
DX: U07.1 COVID-19 (principal); J12.82 Pneumonia due to coronavirus disease 2019; J80 Acute respiratory distress syndrome; J15.6 Pneumonia due to other Gram-negative bacteria; D68.69 Other thrombophilia; J45.909 Unspecified asthma, uncomplicated; I48.91 Unspecified atrial fibrillation; D64.9 Anemia, unspecified; R53.82 Chronic fatigue, unspecified; I10 Essential (primary) hypertension; F32.9 Major depressive disorder, single episode, unspecified; F41.9 Anxiety disorder, unspecified; E03.9 Hypothyroidism, unspecified; Z96.652 Presence of left artificial knee joint; G47.33 Obstructive sleep apnea (adult) (pediatric); I35.1 Nonrheumatic aortic (valve) insufficiency; E78.5 Hyperlipidemia, unspecified; E66.9 Obesity, unspecified; K21.9 Gastro-esophageal reflux disease without esophagitis; Z90.49 Acquired absence of other specified parts of digestive tract; Z86.718 Personal history of other venous thrombosis and embolism; Z86.711 Personal history of pulmonary embolism; Z86.73 Personal history of transient ischemic attack (TIA), and cerebral infarction without residual deficits; Z98.84 Bariatric surgery status; Z98.1 Arthrodesis status; Z79.899 Other long term (current) drug therapy; Z79.01 Long term (current) use of anticoagulants; Z91.041 Radiographic dye allergy status; Z91.02 Food additives allergy status; Z88.0 Allergy status to penicillin; Z88.2 Allergy status to sulfonamides; Z88.8 Allergy status to other drugs, medicaments and biological substances; Z68.38 Body mass index [BMI] 38.0-38.9, adult; Z79.891 Long term (current) use of opiate analgesic